=== PATIENT | female | born 1960 | race Caucasian/White ===

== ENCOUNTER → 2016-11-01 | Outpatient (CLI) | payer OTHER, MEDICARE ==
[~2016-11-01] MED LIST: AMPH30CA3 PO; ARIP2TAB3 PO; ATV5X PO; BIOT1CAP3; BIOT1CAP3 PO; BREX1TAB3 PO; CEVI30CA PO; CGN5X PO; CHOL20007 PO; CHOL20009 PO; CYAN100073 PO; DEXT1TAB15 PO; DSY/150 PO; DSY50 PO; EFFSR75 PO; EPP3/2 IM; GABA-112 PO; GABA-113 PO; GABA300C19 PO; GADAVIST IV PRN; IMT50 PO; KLN5X PO; LAMO1TAB21 PO; LTHCR300 PO; NIFE30TA83 PO; NIFE60TA57 PO; PALI117I IM; PALI3TAB PO; PANT40TA PO; PRAM1.5T PO; PRAZ1CAP10 PO; PRAZ2CAP3 PO; PRT/40 PO; SUMA100T16 PO; TRAM-10 PO; VENL75CA PO
--- NOTE | 2016-11-01 11:01 | DIAGNOSTIC IMAGING REPORT ---
CERVICAL SPINE MRI WITH AND WITHOUT CONTRAST HISTORY: Pain. Neuropathy. GAIT DISTURBANCE TECHNIQUE: Multiplanar multisequence MRI of the cervical spine was performed both before and after the use of intravenous contrast. COMPARISON STUDY: None. FINDINGS: Signal characteristics the vertebral bodies as well as intervertebral disc are unremarkable. C2-C3: No significant central canal or neural foraminal narrowing. C3-C4: No significant central canal or neural foraminal narrowing. C4-C5: No significant central canal or neural foraminal narrowing. C5-C6: No significant central canal or neural foraminal narrowing. C6-C7: No significant central canal or neural foraminal narrowing. C7-T1: No significant central canal or neural foraminal narrowing. IMPRESSION: Normal study. No change from the prior exam. Electronically signed by: Abner Wiseman M.D. 11/01/2016 11:00 AM Dictated Date/Time: 11/01/2016 10:48 AM
--- NOTE | 2016-11-01 11:14 | DIAGNOSTIC IMAGING REPORT ---
MRI OF THE BRAIN WITHOUT AND WITH IV CONTRAST CLINICAL HISTORY: GAIT DISTURBANCE HEADACHES, MIGRAINES, DIZZINESS, LIGHTHEADEDNESS. COMPARISON STUDY: 09/02/2014 TECHNIQUE: MRI of the brain was performed from the vertex to the skull base utilizing various T1 and T2 weighted sequences. Following the IV administration of 6 mL of Gadavist contrast, additional enhanced images were obtained. FINDINGS: Sagittal T1, axial diffusion, proton density and T2 weighted axial, coronal FLAIR, and pre and post axial T1-weighted images were acquired. These were supplemented with post gadolinium coronal T1 weighted images. The patient was imaged under 0.7 Jenny open MRI scanner. No intra or extra-axial mass lesions are visualized. Axial diffusion-weighted images reveal no evidence of acute or subacute infarction. There is no evidence of ventricular dilatation. Proton density T2-weighted and FLAIR images reveal stable foci of nonspecific increased T2 and FLAIR signal within the left frontal white matter. There are no abnormal flow voids. There is no evidence of pathologic enhancement. IMPRESSION: 1. No significant change from the prior August 2014 study 2. No evidence of intracranial mass 3. No evidence of acute or subacute infarction 4. Stable nonspecific foci of increased T2 and FLAIR signal within the left frontal matter Electronically signed by: Anthony Ramos M.D. 11/01/2016 11:13 AM Dictated Date/Time: 11/01/2016 11:08 AM
== END | disposition home or self-care (01) ==
LOC: C.OPENMRI 08:43
PROVIDERS: ATTEND Psychiatry & Neurology Neurology
DX: R26.9 Unspecified abnormalities of gait and mobility (principal); F33.2 Major depressive disorder, recurrent severe without psychotic features

== ENCOUNTER → 2016-11-01 | Outpatient (CLI) | payer OTHER, MEDICARE ==
[~2016-11-01] MED LIST changes: -GADAVIST IV PRN
[2016-11-01 12:38] LABS: ALT/SGPT 28 U/L (12-78); BLOOD UREA NITROGEN 17 mg/dl (7-18); BUN/CREATININE RATIO 26.2 (10-20); CALCIUM 9.4 mg/dl (8.5-10.1); CARBON DIOXIDE 32 mmol/L (21-32); CHLORIDE 99 mmol/L (98-107); CREATININE 0.63 mg/dl (0.60-1.20); GLUCOSE 96 mg/dl (70-99); POTASSIUM 3.7 mmol/L (3.5-5.1); SODIUM 136 mmol/L (136-145)
[2016-11-01 12:40] LABS: ALB/GLOB RATIO 0.9 (0.9-2); ALKALINE PHOSPHATASE 136 U/L (45-117); AST/SGOT 18 U/L (15-37)
== END | disposition home or self-care (01) ==
LOC: C.LAB 11:26
PROVIDERS: ATTEND Psychiatry & Neurology Psychiatry
DX: F33.2 Major depressive disorder, recurrent severe without psychotic features (principal)

== ENCOUNTER 2016-11-03 17:50 | Inpatient (IN) | payer OTHER, MEDICARE ==
[~2016-11-03] VITALS: Ht 165.1 cm; Wt 59.3 kg
[~2016-11-03 17:50] MED LIST changes: -AMPH30CA3 PO; -ARIP2TAB3 PO; -BIOT1CAP3; -BREX1TAB3 PO; -CGN5X PO; -CHOL20007 PO; -CYAN100073 PO; -DSY/150 PO; -GABA-112 PO; -GABA-113 PO; -KLN5X PO; -NIFE60TA57 PO; -PALI117I IM; -PALI3TAB PO; -PANT40TA PO; -PRAZ1CAP10 PO; -PRAZ2CAP3 PO; -SUMA100T16 PO; -VENL75CA PO
[2016-11-03 18:46] LABS: URINE APPEARANCE CLEAR (CLEAR); URINE BILIRUBIN NEG (NEG); URINE COLOR YELLOW; URINE NITRITE NEG (NEG); URINE PH 5.5 (4.5-7.5); URINE SPECIFIC GRAVITY 1.022 (1.000-1.030); UROBILINOGEN NEG (NEG); ZZUR CULT IF INDIC CLEAN CATCH NO
[2016-11-03 18:48] LABS: MANUAL MICROSCOPIC REQUIRED? NO; REVIEW REQ? NO
[2016-11-03] MEDS ORDERED: PRAZ1CAP10 PO (18:57)
[2016-11-03] MEDS ORDERED: AMPH30CA3 PO (18:57)
[2016-11-03] MEDS ORDERED: LORAZEPAM 1 MG TAB PO STA (19:11)
[2016-11-03] MEDS ORDERED: SUMATRIPTAN SUCCINATE 50 MG TAB PO STA (19:11)
[2016-11-03 19:20] LABS: BASO % 0.7 %; BASO ABS # 0.04 K/uL (0-0.2); COMPLETE YES; EOS % 1.7 %; HEMATOCRIT 41.5 % (37-47); IG% 0.2 %; LYMPH % 39.1 %; LYMPH ABS # 2.26 K/uL (1.2-3.4); MEAN CELL VOLUME 90.4 fL (80-100); MEAN CORPUSCULAR HEMOGLOBIN 30.9 pg (25-34); MEAN CORPUSCULAR HGB CONC 34.2 g/dl (32-36); MEAN PLATELET VOLUME 9.3 fL (7.4-10.4); MONO % 4.8 %; NEUT % 53.5 %; PLATELET COUNT 278 K/uL (130-400); RED BLOOD COUNT 4.59 M/uL (4.2-5.4); WHITE BLOOD COUNT 5.78 K/uL (4.8-10.8)
[2016-11-03 19:24] LABS: BENZODIAZEPINE, URINE NEG (NEG); COCAINE,URINE NEG (NEG); PHENCYCLIDINE, URINE NEG (NEG)
--- NOTE | 2016-11-03 19:38 | EMERGENCY ROOM VISIT NOTE ---
History Report prepared by Romario: Uma Mooney Under the Supervision of: Dr. North Ibarra M.D. 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 The patient states that she has been experiencing increased stress and anxiety in her life that has caused her to want to cut herself. She states that she cut her left forearm 2 days ago and after cutting she was able to function normally again. She adds that she attempted to cut the her right heel, but she kept herself from doing it. The patient states that she has not cut herself for several months prior to 2 days ago. The patient has been admitted to the hospital in the past for anxiety and she feels like she is experiencing the same symptoms as those previous times. She is on Ativan for her anxiety, but lately it has not been offering her any relief. The patient's medical case manager and psychiatrist both feel that she needs to come into the ED for further management. The patient is also experiencing a headache, which she typically takes Imitrex for, but did not take today because her medical case manager recommended to wait until after she is evaluated in the ED. Pt denies LOC, homicidal ideation, fevers, chills, diaphoresis, visual changes, neck pain, chest pain, breathing difficulties, abdominal pain, back pain, melena, hematochezia, urinary symptoms, numbness, weakness, lymphadenopathy, rash, or other complaints. Additionally, the patient is being tested for MS because she has been falling a lot and forgetting things. She had a MRI done two days ago. The patient also states that she is experiencing nausea and vomiting, but attributes that to a Botox injection in her stomach that did not work. The patient denies any recreational drug use or alcohol consumption. 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 A total of ten systems were reviewed and were otherwise negative. Past Medical & Surgical Medical Problems: (1) Bipolar disorder (2) Borderline depression (3) Cholecystectomy (4) Esophageal dysphagia (5) post traumatic stress disorder (6) Raynaud's phenomenon (7) Scleroderma (8) Sjogren's (9) Stomach Problems Family History Alcoholism (father) CAD (brother) Depression (father, mother) Hyperlipidemia (brother) Hypertension (mother) Social History Smoking Status: Never Smoker Alcohol Use: none Drug Use: none Marital Status: in relationship Housing Status: lives alone Occupation Status: employed Current/Historical Medications Scheduled Amphetamine-Dextroamphetamine 30MG (Adderall Xr 30MG), 30 MG PO QAM Biotin (Biotin), 5,000 MCG PO QAM Cevimeline Hcl (Evoxac), 30 MG PO TID Cholecalciferol (Vitamin D), 2,000 INTER.UNIT PO QAM Gabapentin (Neurontin), 300 MG PO HS Enemy Swim Carbonate (Enemy Swim Carbonate ER), 300 MG PO QAM Enemy Swim Carbonate (Enemy Swim Carbonate ER), 450 MG PO HS Pantoprazole (Pantoprazole Sodium), 40 MG PO BID Pramipexole Dihydrochloride (Mirapex), 1.5 MG PO QAM Prazosin Hcl (Prazosin), 1 MG PO HS Venlafaxine Hcl (Effexor Extended Rel), 75 MG PO QAM Scheduled PRN Nifedipine Ext Rel (Procardia Xl Ext Rel), 30 MG PO DAILY PRN for Breakthrough Pain Sumatriptan Succinate (Sumatriptan Succinate), 50 MG PO UD PRN for Migraine Trazodone HCl (Trazodone HCl), 50-100 MG PO HS PRN for Sleep Allergies Coded Allergies: BEE STING (Verified Allergy, Severe, pt. gets extreme swelling at the site and beyond,rash, 11/03/16) pt. allergic to yellow jackets,wasps, hornets Propranolol (Unverified Allergy, Intermediate, hives, 11/03/16) Doxycycline (Verified Adverse Reaction, Intermediate, vomiting, 11/03/16) Prednisone (Verified Adverse Reaction, Intermediate, MIGRAINE HEADACHE, 11/03/16) Physical Exam Vital Signs Date Time Temp Pulse Resp B/P Pulse Ox O2 Delivery O2 Flow Rate FiO2 11/03/16 19:42 81 20 162/102 99 11/03/16 17:57 36.8 101 18 141/95 96 Room Air Physical Exam GENERAL: Awake, alert, well appearing, no distress HENT: Normocephalic, atraumatic. TM's normal. Oropharynx unremarkable. EYES: PERRL. EOMI. Normal conjunctiva. Sclera non-icteric. NECK: Supple. No nuchal rigidity. FROM. No JVD or bruit. RESPIRATORY: CTA CARDIAC: RRR. No murmur. ABDOMEN: Soft, non distended. No tenderness to palpation. No rebound or guarding. No masses. MUSCULOSKELETAL: Healing lacerations to proximal left forearm without signs of infection. Scratch on the back of right heel. No edema. No discoloration. Gross motor strength symmetric. NEURO: Cranial nerves 2-12 grossly intact. Normal sensorium. No sensory or motor deficits noted. Speech normal. No pronator drift. SKIN: No rash or jaundice noted. LYMPH: No adenopathy. PSYCH: Anxious mood. Labile affect. Thoughts of self-harm by cutting. No homicidal ideation. Medical Decision & Procedures Laboratory Results 11/03/16 19:09 Red Blood Count 4.59, Mean Corpuscular Volume 90.4, Mean Corpuscular Hemoglobin 30.9, Mean Corpuscular Hemoglobin Concent 34.2, Mean Platelet Volume 9.3, Neutrophils (%) (Auto) 53.5, Lymphocytes (%) (Auto) 39.1, Monocytes (%) (Auto) 4.8, Eosinophils (%) (Auto) 1.7, Basophils (%) (Auto) 0.7, Neutrophils # (Auto) 3.09, Lymphocytes # (Auto) 2.26, Monocytes # (Auto) 0.28, Eosinophils # (Auto) 0.10, Basophils # (Auto) 0.04 11/03/16 19:09 Test 11/03/16 18:25 11/03/16 19:09 Urine Color YELLOW Urine Appearance CLEAR (CLEAR) Urine pH 5.5 (4.5-7.5) Urine Specific Happy 1.022 (1.000-1.030) Urine Protein NEG (NEG) Urine Glucose (UA) NEG (NEG) Urine Ketones NEG (NEG) Urine Occult Blood NEG (NEG) Urine Nitrite NEG (NEG) Urine Bilirubin NEG (NEG) Urine Urobilinogen NEG (NEG) Urine Leukocyte Esterase NEG (NEG) Urine Opiates Screen NEG (NEG) Urine Methadone, Qualitative NEG (NEG) Urine Barbiturates NEG (NEG) Urine Phencyclidine (PCP) Level NEG (NEG) Ur Amphetamine/Methamphetamine POS (NEG) MDMA (Ecstasy) Screen NEG (NEG) Urine Benzodiazepines Screen NEG (NEG) Urine Cocaine Metabolite NEG (NEG) Urine Marijuana (THC) NEG (NEG) White Blood Count 5.78 K/uL (4.8-10.8) Red Blood Count 4.59 M/uL (4.2-5.4) Hemoglobin 14.2 g/dL (12.0-16.0) Hematocrit 41.5 % (37-47) Mean Corpuscular Volume 90.4 fL (80-100) Mean Corpuscular Hemoglobin 30.9 pg (25-34) Mean Corpuscular Hemoglobin Concent 34.2 g/dl (32-36) Platelet Count 278 K/uL (130-400) Mean Platelet Volume 9.3 fL (7.4-10.4) Neutrophils (%) (Auto) 53.5 % Lymphocytes (%) (Auto) 39.1 % Monocytes (%) (Auto) 4.8 % Eosinophils (%) (Auto) 1.7 % Basophils (%) (Auto) 0.7 % Neutrophils # (Auto) 3.09 K/uL (1.4-6.5) Lymphocytes # (Auto) 2.26 K/uL (1.2-3.4) Monocytes # (Auto) 0.28 K/uL (0.11-0.59) Eosinophils # (Auto) 0.10 K/uL (0-0.5) Basophils # (Auto) 0.04 K/uL (0-0.2) RDW Standard Deviation 41.5 fL (36.4-46.3) RDW Coefficient of Variation 12.6 % (11.5-14.5) Immature Granulocyte % (Auto) 0.2 % Immature Granulocyte # (Auto) 0.01 K/uL (0.00-0.02) Anion Gap 6.0 mmol/L (3-11) Est Creatinine Clear Calc Drug Dose 91.9 ml/min Estimated GFR () 117.9 Estimated GFR (Non- 101.7 BUN/Creatinine Ratio 31.4 (10-20) Calcium Level 9.6 mg/dl (8.5-10.1) Total Bilirubin 0.2 mg/dl (0.2-1) Aspartate Amino Transf (AST/SGOT) 22 U/L (15-37) Alanine Aminotransferase (ALT/SGPT) 26 U/L (12-78) Alkaline Phosphatase 141 U/L (45-117) Total Protein 7.8 gm/dl (6.4-8.2) Albumin 3.8 gm/dl (3.4-5.0) Globulin 4.0 gm/dl (2.5-4.0) Albumin/Globulin Ratio 1.0 (0.9-2) Thyroid Stimulating Hormone (TSH) 0.830 uIu/ml (0.300-4.500) Salicylates Level < 1.7 mg/dl (2.8-20) Acetaminophen Level 14 ug/ml (10-30) Ethyl Alcohol mg/dL < 3.0 mg/dl (0-3) Laboratory results reviewed by me Medications Administered Medications (Trade) Dose Ordered Sig/Horacio Route Start Time Stop Time Status Last Admin Dose Admin Sumatriptan Succinate (Imitrex Tab) 50 mg NOW STAT PO 11/03/16 19:11 11/03/16 19:12 DC 11/03/16 19:40 50 MG Lorazepam (Ativan Tab) 1 mg NOW STAT PO 11/03/16 19:11 11/03/16 19:12 DC 11/03/16 19:40 1 MG ED Course 1904: The patient was evaluated in room A6. A complete history and physical exam was performed. 1910: Ordered Ativan Tab 1 mg PO. Imitrex Tab 50 mg PO 1999: Upon reexamination, the patient was doing well. I discussed the test results and treatment plan with her. The patient is going to [address] [place] [address] for further management. Medical Decision Prior records/ancillary studies reviewed. Triage Nursing notes reviewed and agree them. The patient's history was concerning for possible psychiatric disturbance. Differential diagnosis: Etiologies such as mood disorder, infection, hypoglycemia, electrolyte abnormalities, cardiac sources, intracerebral event, toxicologic, neurologic, as well as others were entertained. Physical examination: The physical examination was performed as above and was completely benign. No emergent medical pathologies were noted. ER treatment provided: Oral Ativan given. The patient also requested her Imitrex. This was given. On reassessment the patient felt better. Diagnostic interpretation by me: The labs revealed an unremarkable CBC and chemistry panel. A TSH and LFTs are negative. Tylenol, salicylate, and alcohol levels negative. Imaging studies: Deferred Consultation: A consultation was placed with mental health. The patient was evaluated by mental health in the emergency department and they felt admission was warranted. The patient was voluntarily admitted for further treatment. The chart was completed utilizing [employer] Speech voice recognition software. Grammatical errors, random word insertions, pronoun errors, and incomplete sentences are an occasional consequence of this system due to software limitations, ambient noise, and hardware issues. Any formal questions or concerns about the content, text, or information contained within the body of this dictation should be directly addressed to the physician for clarification. Impression Primary Impression: Mood disorder Scribe Attestation The scribe's documentation has been prepared under my direction and personally reviewed by me in its entirety. I confirm that the note above accurately reflects all work, treatment, procedures, and medical decision making performed by me. Departure Information Dispostion [facility] ([address] [place] [address]) Referrals Abner Burnett M.D. (PCP) Patient Instructions My [facility]
[2016-11-03 19:39] LABS: ACETAMINOPHEN 14 ug/ml (10-30); BUN/CREATININE RATIO 31.4 (10-20); CALCIUM 9.6 mg/dl (8.5-10.1); CREATININE 0.63 mg/dl (0.60-1.20)
[2016-11-03 19:50] LABS: THYROID STIMULATING HORMONE 0.83 uIu/ml (0.300-4.500)
[2016-11-03] MEDS ORDERED: NURSING VERBAL MED ORDER ONE ×2 (20:45→21:45)
[2016-11-03] MEDS ORDERED: SODIUM CHLORIDE 0.65% NA SOLN 45 ML (OCEAN) PRN (20:45)
[2016-11-03] MEDS ORDERED: BISMUTH SUBSALICYLATE PER ML OMNICELL CHARGE PO PRN (20:45)
[2016-11-03] MEDS ORDERED: MAGNESIUM HYDROXIDE SUSP 30 ML UDC PO PRN (20:45)
[2016-11-03] MEDS ORDERED: ACETAMINOPHEN 325 MG TAB PO PRN (20:45)
[2016-11-03] MEDS ORDERED: hydrOXYzine HCL 25 MG TAB PO PRN ×2 (20:45)
[2016-11-03] MEDS ORDERED: ALUMINUM/MAGNESIUM SUSP 30 ML UDC PO PRN (20:45)
[2016-11-03 21:22] VITALS: O2SAT 96
[2016-11-03 21:48] VITALS: BP 144/90; PULSE 77; TEMP 36.8; Ht 165.1 cm; Wt 59.3 kg
[2016-11-03] MEDS ORDERED: TRAZODONE HCL 50 MG TAB PO PRN (22:15)
[2016-11-04] MEDS: PANTOprazole SOD 40 MG TAB PO SCH ×3 (00:01→21:17)
[2016-11-04] MEDS: GABAPENTIN 300 MG CAP PO SCH ×2 (00:02→21:17)
[2016-11-04] MEDS: PRAZOSIN HCL 1 MG CAP PO SCH ×2 (00:02→21:17)
[2016-11-04] MEDS: LITHIUM CARBONATE 450 MG TABCR PO SCH ×2 (00:02→21:16)
[2016-11-04 07:00] VITALS: BP_SYST 103; BP_SYST 89; BP_DIAS 52; BP_DIAS 66; PULSE 70; PULSE 75; TEMP 36.4
[2016-11-04] MEDS ORDERED: NIFEdipine 30 MG CR TAB PO SCH (09:00)
[2016-11-04] MEDS: VENLAFAXINE HCL XR 75 MG CAPXR PO SCH (09:12)
[2016-11-04] MEDS: PRAMIPEXOLE DIHYDROCHLORIDE 0.5 MG TAB PO SCH (09:13)
[2016-11-04] MEDS ORDERED: CYAN100073 PO ×2 (12:43→13:23)
[2016-11-04] MEDS ORDERED: NIFE60TA57 PO ×2 (12:50→13:27)
[2016-11-04] MEDS ORDERED: SUMA100T16 PO (13:09)
[2016-11-04] MEDS ORDERED: SUMATRIPTAN SUCC TAB 100 MG TAB PO PRN (13:45)
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
[2016-11-04] MEDS ORDERED: CEVIMELINE HCL 30 MG PO SCH (14:00)
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
[2016-11-04] MEDS: PALIPERIDONE 3 MG TABCR PO SCH (21:16)
[2016-11-04] MEDS: CEVIMELINE 30 MG CAP PO SCH (21:16)
[2016-11-04] MEDS ORDERED: PRAZOSIN HCL 1 MG PO SCH (22:00)
[2016-11-05 06:30] VITALS: BP 129/84; PULSE 81; TEMP 36.5
[2016-11-05] MEDS ORDERED: NIFEdipine 30 MG CR TAB PO PRN (09:00)
[2016-11-05] MEDS ORDERED: PRAMIPEXOLE DIHYDROCHLORIDE 1.5 MG PO SCH (09:00)
[2016-11-05] MEDS ORDERED: NON-FORMULARY MEDICATION (Biotin 5,000 MCG) PO SCH (09:00)
[2016-11-05] MEDS: VENLAFAXINE HCL XR 75 MG CAPXR PO SCH (09:13)
[2016-11-05] MEDS: CEVIMELINE 30 MG CAP PO SCH ×3 (09:14→21:00)
[2016-11-05] MEDS: LITHIUM CARBONATE SR 300 MG TAB (LITHOBID) PO SCH (09:14)
[2016-11-05] MEDS: PRAMIPEXOLE DIHYDROCHLORIDE 0.5 MG TAB PO SCH (09:15)
[2016-11-05] MEDS: PANTOprazole SOD 40 MG TAB PO SCH ×2 (09:15→21:02)
[2016-11-05] MEDS: CYANOCOBALAMIN 500 MCG TAB (VIT B-12) PO SCH (09:16)
[2016-11-05] MEDS: CHOLECALCIFEROL 1000 INTER.UNIT TAB PO SCH (09:16)
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
[2016-11-05] MEDS: LITHIUM CARBONATE 450 MG TABCR PO SCH (21:00)
[2016-11-05] MEDS: PALIPERIDONE 3 MG TABCR PO SCH (21:01)
[2016-11-05] MEDS: PRAZOSIN HCL 1 MG CAP PO SCH (21:01)
[2016-11-05] MEDS: GABAPENTIN 300 MG CAP PO SCH (21:01)
[2016-11-06 06:51] VITALS: BP_SYST 112; BP_SYST 92; BP_DIAS 62; BP_DIAS 71; PULSE 82; PULSE 91; TEMP 36.7
--- NOTE | 2016-11-06 08:00 | Psychiatric Progress Notes ---
Progress Note Date of Service Nov 06, 2016. Interval History 56 yo woman well know to our unit, admitted voluntarily with severe depression and irritability, feeling unable to be safe at home. 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 Chief Complaint "Don't feel like doing anything". Subjective Patient was seen & assessed interval progress reviewed with nursing. Staff report she is refusing a meeting with her boyfriend, saying she feels "abandoned ," but wants nothing to do with him. She said she might sign a 72 hour notice, as she isn't sure who can watch her dog after Tuesday. She did not submit the notice, and with staff encouragement, did call and leave a message for her boyfriend. She has minimal group participation, isolating in bed. This morning , she is seen in her room, where she is still in bed, skipping breakfast. She reports poor sleep, which she attributes to her roommate's snoring. She states she doesn't want earplugs, "I only weigh those at the races." Mood is "it fluctuates," admits to ongoing depression and irritability. She admits she is not going to groups or interacting with others, stating "just don't feel like it." She denies suicidal thoughts, but endorses urges to cut which are "off and on," occur multiple times a day, primarily "when I'm frustrated." Irritability is better than on admission, which she attributes to being away from her stressors. She is various reasons why she can't do a meeting with her boyfriend Hoang, then says that he is coming in today, and she will do a meeting with him as possible. She denies side effects to medications. She is willing to start Invega Sustenna, and was informed she can get the first injection today, and the second in 4 days. She wants to know if there are other medication she can take in place of the Adderall, as she is worried that she will be able to concentrate. Sleep Information Total Hours of Sleep: 9.25 Meal Information Percent of Breakfast Consumed: 0 Percent of Lunch Consumed: 25 Percent of Dinner Consumed: 20 Mental Status Exam During interview pt is: alert and oriented, cooperative Appearance: appropriately dressed, disheveled Eye contact is: fair Motor behavior is: no abnormal motor movements Speech: normal in rate, rhythm & volume Affect: depressed, irritable, constricted Mood is: other ("not that good") Thought process: goal directed, concrete Thought content: reality based without delusions Suicidal thought are: denied (reports urges to cut, which occur multiple times a day) Homicidal thoughts are: denied Hallucinations: denies auditory, denies visual Cognition: memory grossly intact, attention grossly intact Intelligence estimated to be: average Insight: impaired Judgement: impaired Impression Adjusting to the unit, but remains angry and poorly engaged in treatment. We have initiated treatment plan to start a long acting injectable (HAYNES) due to chronic noncompliance with medication. At that point she would like to taper off of lithium. Recommend family meeting with Hoang, which she is willing to do this weekend, as he leaves Tuesday for his long distance [employer] job. Continue other meds. Spoke with Dr. Salgado by phone who reviewed MRI results. Nothing acute, lesion stable. May be a result of multiple factors including history of head injuries, lithium therapy and chronic migraines. This info was reviewed with the patient. Continued Inpatient Care The patient requires inpatient care due to the severity of her condition and inability to maintain her safety at home Plan (1) Major depressive disorder, recurrent severe without psychotic features 3/3 - Continue Invega 3 mg. HS with plan to move to HAYNES Sustenna in next few days - Continue other OP meds including lithium for now. Will taper lithium after demonstration that Invega/Sustenna tolerated - Q 15 min checks for safety - Encourage participation in group and individual counseling - Coordinate with OP providers 3/4 - Start Invega Sustenna, with 234 mg IM loading dose today, and second loading dose of 150 mg IM in 4 days. At that point, can discontinue oral paliperidone. (2) PTSD (post-traumatic stress disorder) 3/3 - Monitor and provide individual counseling - Continue prazosin 1 mg. HS (3) Borderline personality disorder 3/3 - Maintain consistent boundaries - Encourage healthy means of communicating her needs (4) Raynaud's phenomenon 3/3 - Continue home meds (5) Sjogren's 3/3 - Continue home meds (6) Scleroderma 3/3 - Monitor PO intake in view of esophageal dysmotility Discharge / Aftercare Planning Primary Care Physician: Name: Yoel Psychiatrist: Name: Dr Smith Therapist: Name: Beulah De Souza Business Excellence Leader: Name: bryon monzon Visit Code E&M Code: 12098 Risk Factors Assessment : Yes /single/: No Higher / Fall in social status: No Access to guns: No Health problems: Yes Mental Health Diagnoses: Yes Substance use disorders: No Previous psychiatric stay: Yes Hopelessness: No Smoker: No Protective Factors Assessment Restorationism beliefs: No : No Responsible for young children: No Employed: Yes Stable relationships: No Supportive family: Yes Good rapport with provider: Yes Data Vital Signs Last 24 Hrs: Date Time Temp Pulse Resp B/P Pulse Ox O2 Delivery O2 Flow Rate FiO2 11/06/16 06:51 36.7 82 16 112/71 91 92/62 Meds Administered Last 24 Hrs: Meds Administered (Past 24Hrs) Medications (Trade) Dose Ordered Sig/Horacio Route Start Time Stop Time Status Last Admin Dose Admin Gabapentin (Neurontin Cap) 300 mg HS PO 11/04/16 22:00 12/04/16 21:59 11/05/16 21:01 300 MG [place] Carbonate (Eskalith Cr Tab) 450 mg HS PO 11/04/16 22:00 12/04/16 21:59 11/05/16 21:00 450 MG Nifedipine (Procardia Xl Tab) 30 mg DAILY PO 11/04/16 09:00 11/04/16 13:39 DC 11/04/16 09:13 30 MG Pramipexole Dihydrochloride (miraPEX TAB) 1.5 mg QAM PO 11/04/16 09:00 12/04/16 08:59 11/05/16 09:15 1.5 MG Pantoprazole Sodium (Protonix Tab) 40 mg BID PO 11/04/16 09:00 12/04/16 08:59 11/05/16 21:02 40 MG Prazosin HCl (Prazosin) 1 mg HS PO 11/04/16 22:00 12/04/16 21:59 11/05/16 21:01 1 MG Venlafaxine HCl (effeXOR EXTENDED REL CAP) 75 mg QAM PO 11/04/16 09:00 12/04/16 08:59 11/05/16 09:13 75 MG [place] Carbonate (Lithobid Tab) 300 mg QAM PO 11/05/16 09:00 12/05/16 08:59 11/05/16 09:14 300 MG Cholecalciferol (Vitamin D Tab) 2,000 inter.unit QAM PO 11/05/16 09:00 12/05/16 08:59 11/05/16 09:16 2,000 INTER.UNIT Paliperidone (Invega) 3 mg HS PO 11/04/16 22:00 12/04/16 21:59 11/05/16 21:01 3 MG Cyanocobalamin (Vitamin B-12 Tab) 1,000 mcg QAM PO 11/05/16 09:00 12/05/16 08:59 11/05/16 09:16 1,000 MCG Cevimeline HCl (Evoxac) 30 mg TID PO 11/04/16 22:00 12/04/16 21:59 11/05/16 21:00 30 MG
[2016-11-06] MEDS: VENLAFAXINE HCL XR 75 MG CAPXR PO SCH (08:58)
[2016-11-06] MEDS: CEVIMELINE 30 MG CAP PO SCH ×3 (08:58→21:12)
[2016-11-06] MEDS: LITHIUM CARBONATE SR 300 MG TAB (LITHOBID) PO SCH (08:58)
[2016-11-06] MEDS: CYANOCOBALAMIN 500 MCG TAB (VIT B-12) PO SCH (08:59)
[2016-11-06] MEDS: CHOLECALCIFEROL 1000 INTER.UNIT TAB PO SCH (08:59)
[2016-11-06] MEDS: PANTOprazole SOD 40 MG TAB PO SCH ×2 (08:59→21:13)
[2016-11-06] MEDS: PRAMIPEXOLE DIHYDROCHLORIDE 0.5 MG TAB PO SCH (08:59)
[2016-11-06] MEDS ORDERED: INVEGA SUSTENNA 234 MG/ML 1.5 ML SYR IM ONE (13:30)
[2016-11-06] MEDS: GABAPENTIN 300 MG CAP PO SCH (21:12)
[2016-11-06] MEDS: PALIPERIDONE 3 MG TABCR PO SCH (21:13)
[2016-11-06] MEDS: PRAZOSIN HCL 1 MG CAP PO SCH (21:13)
[2016-11-06] MEDS: LITHIUM CARBONATE 450 MG TABCR PO SCH (21:24)
[2016-11-07 06:40] VITALS: BP_SYST 109; BP_SYST 95; BP_DIAS 64; BP_DIAS 72; PULSE 67; PULSE 74; TEMP 36.6
--- NOTE | 2016-11-07 07:53 | Psychiatric Progress Notes ---
Progress Note Date of Service Nov 07, 2016. Interval History 56 yo woman well know to our unit, admitted voluntarily with severe depression and irritability, feeling unable to be safe at home. 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 Chief Complaint "Okay, just tired". Subjective Patient was seen & assessed interval progress reviewed with nursing. Staff report she was incontinent of urine last night, and reported waking up with a nightmare. She slept in the quiet room as her roommate was snoring. Her boyfriend Hoang visited and they met with staff, and agreed that they both wanted to work on their relationship. He brought her dog in to visit her, and will take the dog to his mother's house when he leaves for work this week. She is eating poorly, 10-15% of meals. She went to one group but got upset and left as another patient was talking about coping skills to use in place of cutting. She continues to report low mood, rating it a 4, and says she feels "confused." Today, the patient was seen in her bed, to which she has returned after eating lunch. She states that she did get up and go to one group this morning. Her boyfriend Hoang visited yesterday, and they talked about "trying not to do thing that gun attack one another off," which she thinks was productive and helpful. She was pleased to learn that Hoang got a loan to replace their roof. Her mood is improved today, as she says "I'm not suicidal, but no energy, no desire to do anything, that's why I am just sleeping." She reports ongoing, constant urges to cut herself, but is dealing with it by "just sleeping," and denies that she has injured herself here. She wants to work on "impulse control," and also wants to have a meeting with her outpatient therapist, block and case maker, [facility] [employer] med management staff, and psych rehabilitation staff, saying her therapist Beulah recommended this. She tolerated the injection of systemic yesterday without difficulty, but wonders if it caused her to have urinary incontinence last night. Sleep Information Total Hours of Sleep: 7.15 Meal Information Percent of Breakfast Consumed: 10 Percent of Lunch Consumed: 25 Percent of Dinner Consumed: 15 Mental Status Exam During interview pt is: alert and oriented, cooperative Appearance: appropriately dressed, disheveled, other (in bed midday) Eye contact is: fair Motor behavior is: no abnormal motor movements Speech: normal in rate, rhythm & volume Affect: depressed, constricted (incongruent with stated mood) Mood is: other ("better") Thought process: goal directed, concrete Thought content: reality based without delusions Suicidal thought are: denied (reports urges to cut, which occur multiple times a day) Homicidal thoughts are: denied Hallucinations: denies auditory, denies visual Cognition: memory grossly intact, attention grossly intact Intelligence estimated to be: average Insight: impaired Judgement: impaired Impression Adjusting to the unit, but remains angry and poorly engaged in treatment. We have initiated treatment plan to start a long acting injectable (HAYNES) due to chronic noncompliance with medication. At that point she would like to taper off of lithium. Recommend family meeting with Hoang, which she is willing to do this weekend, as he leaves Tuesday for his long distance [employer] job. Continue other meds. Spoke with Dr. Salgado by phone who reviewed MRI results. Nothing acute, lesion stable. May be a result of multiple factors including history of head injuries, lithium therapy and chronic migraines. This info was reviewed with the patient. Continued Inpatient Care The patient requires inpatient care due to the severity of her condition and inability to maintain her safety at home Plan (1) Major depressive disorder, recurrent severe without psychotic features 3/3 - Continue Invega 3 mg. HS with plan to move to HAYNES Sustenna in next few days - Continue other OP meds including lithium for now. Will taper lithium after demonstration that Invega/Sustenna tolerated - Q 15 min checks for safety - Encourage participation in group and individual counseling - Coordinate with OP providers 3/4 - Start Invega Sustenna, with 234 mg IM loading dose today, and second loading dose of 150 mg IM in 4 days. At that point, can discontinue oral paliperidone. (2) PTSD (post-traumatic stress disorder) 3/3 - Monitor and provide individual counseling - Continue prazosin 1 mg. HS (3) Borderline personality disorder 3/3 - Maintain consistent boundaries - Encourage healthy means of communicating her needs (4) Raynaud's phenomenon 3/3 - Continue home meds (5) Sjogren's 3/3 - Continue home meds (6) Scleroderma 11/05 - Monitor PO intake in view of esophageal dysmotility Discharge / Aftercare Planning Primary Care Physician: Name: Yoel Psychiatrist: Name: Dr Smith Therapist: Name: Beulah De Souza Manager Event: Name: bryon monzon Visit Code E&M Code: 21208 Risk Factors Assessment : Yes /single/: No Higher / Fall in social status: No Access to guns: No Health problems: Yes Mental Health Diagnoses: Yes Substance use disorders: No Previous psychiatric stay: Yes Hopelessness: No Smoker: No Protective Factors Assessment Gnosticism beliefs: No : No Responsible for young children: No Employed: Yes Stable relationships: No Supportive family: Yes Good rapport with provider: Yes Data Vital Signs Last 24 Hrs: Date Time Temp Pulse Resp B/P Pulse Ox O2 Delivery O2 Flow Rate FiO2 11/07/16 06:40 36.6 67 16 109/72 74 95/64 Meds Administered Last 24 Hrs: Meds Administered (Past 24Hrs) Medications (Trade) Dose Ordered Sig/Horacio Route Start Time Stop Time Status Last Admin Dose Admin [place] Carbonate (Lithobid Tab) 300 mg QAM PO 11/05/16 09:00 12/05/16 08:59 11/06/16 08:58 300 MG Cholecalciferol (Vitamin D Tab) 2,000 inter.unit QAM PO 11/05/16 09:00 12/05/16 08:59 11/06/16 08:59 2,000 INTER.UNIT Cyanocobalamin (Vitamin B-12 Tab) 1,000 mcg QAM PO 11/05/16 09:00 12/05/16 08:59 11/06/16 08:59 1,000 MCG Paliperidone Palmitate (Invega Sustenna) 234 mg TODAY@1330 ONCE IM 11/06/16 13:30 11/06/16 13:31 DC 11/06/16 13:35 234 MG
[2016-11-07] MEDS: VENLAFAXINE HCL XR 75 MG CAPXR PO SCH (09:26)
[2016-11-07] MEDS: CHOLECALCIFEROL 1000 INTER.UNIT TAB PO SCH (09:27)
[2016-11-07] MEDS: CYANOCOBALAMIN 500 MCG TAB (VIT B-12) PO SCH (09:27)
[2016-11-07] MEDS: CEVIMELINE 30 MG CAP PO SCH ×3 (09:27→22:00)
[2016-11-07] MEDS: LITHIUM CARBONATE SR 300 MG TAB (LITHOBID) PO SCH (09:27)
[2016-11-07] MEDS: PRAMIPEXOLE DIHYDROCHLORIDE 0.5 MG TAB PO SCH (09:27)
[2016-11-07] MEDS: PANTOprazole SOD 40 MG TAB PO SCH ×2 (10:30→15:53)
[2016-11-08] MEDS: LITHIUM CARBONATE 450 MG TABCR PO SCH ×2 (00:02→20:56)
[2016-11-08] MEDS: PALIPERIDONE 3 MG TABCR PO SCH ×2 (00:03→20:57)
[2016-11-08] MEDS: GABAPENTIN 300 MG CAP PO SCH ×2 (00:03→20:56)
[2016-11-08] MEDS: PRAZOSIN HCL 1 MG CAP PO SCH ×2 (00:04→20:56)
[2016-11-08 06:46] VITALS: BP_SYST 103; BP_SYST 93; BP_DIAS 64; BP_DIAS 69; PULSE 61; PULSE 70; TEMP 36.5
[2016-11-08] MEDS: PANTOprazole SOD 40 MG TAB PO SCH ×2 (08:50→17:18)
[2016-11-08] MEDS: LITHIUM CARBONATE SR 300 MG TAB (LITHOBID) PO SCH (08:50)
[2016-11-08] MEDS: PRAMIPEXOLE DIHYDROCHLORIDE 0.5 MG TAB PO SCH (08:50)
[2016-11-08] MEDS: VENLAFAXINE HCL XR 75 MG CAPXR PO SCH (08:50)
[2016-11-08] MEDS: CYANOCOBALAMIN 500 MCG TAB (VIT B-12) PO SCH (08:51)
[2016-11-08] MEDS: CEVIMELINE 30 MG CAP PO SCH ×3 (08:51→20:56)
[2016-11-08] MEDS: CHOLECALCIFEROL 1000 INTER.UNIT TAB PO SCH (08:51)
--- NOTE | 2016-11-08 12:34 | Psychiatric Progress Notes ---
Progress Note Date of Service Nov 08, 2016. Interval History 56 yo woman well know to our unit, admitted voluntarily with severe depression and irritability, feeling unable to be safe at home. 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 Chief Complaint "All right, better than it was". Subjective Patient was seen & assessed interval progress reviewed with Treatment Team. She reports that mood is improved from admission, but she continues to feel she has "no energy." She says she slept "okay, but not real deep." She had asked the staff to wake her in the middle of the night, so that she would not have another episode of urinary incontinence She denies suicidal thoughts, but continues to have thoughts of cutting herself, although she denies acting on them. When asked about her symptoms, she started talking about her complaints about certain staff, whom she perceived as being "cranky and abrupt"with her, saying that when her boyfriend brought in some colored pencils for her, the staff put them in her locker instead of giving them to her directly. She says "I'm not used to experiencing this when I'm on this unit," and says it was distressing to the point that she was scratching her arms with her fingernails. Her goals for today are to go to her groups and call Hoang to see if he be willing to have a meeting with the social media developer over the phone. He has already left for the week, as he is a coil cutter, and she did not ask him this weekend if he would be willing to do a meeting by phone. Sleep Information Total Hours of Sleep: 6.00 Meal Information Percent of Breakfast Consumed: 100 Percent of Lunch Consumed: 25 Percent of Dinner Consumed: 25 Mental Status Exam During interview pt is: alert and oriented, cooperative Appearance: appropriately dressed Eye contact is: fair Motor behavior is: no abnormal motor movements Speech: normal in rate, rhythm & volume Affect: depressed, irritable, constricted (incongruent with stated mood) Mood is: other ("better") Thought process: goal directed, concrete Thought content: reality based without delusions Suicidal thought are: denied (reports thoughts to cut, which occur multiple times a day) Homicidal thoughts are: denied Hallucinations: denies auditory, denies visual Cognition: memory grossly intact, attention grossly intact Intelligence estimated to be: average Insight: impaired Judgement: impaired Impression Adjusting to the unit, but remains angry and poorly engaged in treatment. We have initiated treatment plan to start a long acting injectable (HAYNES) due to chronic noncompliance with medication. At that point she would like to taper off of lithium. Recommend family meeting with Hoang, which she is willing to do this weekend, as he leaves Tuesday for his long distance [employer] job. Continue other meds. Spoke with Dr. Salgado by phone who reviewed MRI results. Nothing acute, lesion stable. May be a result of multiple factors including history of head injuries, lithium therapy and chronic migraines. This info was reviewed with the patient. Continued Inpatient Care The patient requires inpatient care due to the severity of her condition and inability to maintain her safety at home Plan (1) Major depressive disorder, recurrent severe without psychotic features 3/3 - Continue Invega 3 mg. HS with plan to move to HAYNES Sustenna in next few days - Continue other OP meds including lithium for now. Will taper lithium after demonstration that Invega/Sustenna tolerated - Q 15 min checks for safety - Encourage participation in group and individual counseling - Coordinate with OP providers 3/4 - Start Invega Sustenna, with 234 mg IM loading dose today, and second loading dose of 150 mg IM in 4 days. At that point, can discontinue oral paliperidone. 3/5 - Family meeting with boyfriend. - Explore options for where she can get long-acting injectable after discharge. -Order fasting lipid profile and fasting glucose for monitoring on an atypical antipsychotic, as the last labs available were in 2014. (2) PTSD (post-traumatic stress disorder) 3/3 - Monitor and provide individual counseling - Continue prazosin 1 mg. HS (3) Borderline personality disorder 3/3 - Maintain consistent boundaries - Encourage healthy means of communicating her needs (4) Raynaud's phenomenon 3/3 - Continue home meds (5) Sjogren's 3/3 - Continue home meds (6) Scleroderma 3/3 - Monitor PO intake in view of esophageal dysmotility Discharge / Aftercare Planning Primary Care Physician: Name: Yoel Psychiatrist: Name: Dr Smith Therapist: Name: Beulah De Souza Boat Ride Operator: Name: bryon monzon Visit Code E&M Code: 38389 Risk Factors Assessment : Yes /single/: No Higher / Fall in social status: No Access to guns: No Health problems: Yes Mental Health Diagnoses: Yes Substance use disorders: No Previous psychiatric stay: Yes Hopelessness: No Smoker: No Protective Factors Assessment Catholic beliefs: No : No Responsible for young children: No Employed: Yes Stable relationships: No Supportive family: Yes Good rapport with provider: Yes Data Vital Signs Last 24 Hrs: Date Time Temp Pulse Resp B/P Pulse Ox O2 Delivery O2 Flow Rate FiO2 11/08/16 06:46 36.5 61 16 103/69 70 93/64 Meds Administered Last 24 Hrs: Meds Administered (Past 24Hrs) Medications (Trade) Dose Ordered Sig/Horacio Route Start Time Stop Time Status Last Admin Dose Admin Paliperidone Palmitate (Invega Sustenna) 234 mg TODAY@1330 ONCE IM 11/06/16 13:30 11/06/16 13:31 DC 11/06/16 13:35 234 MG Pantoprazole Sodium (Protonix Tab) 40 mg BID@0900,1600 PO 11/07/16 10:00 12/07/16 09:59 11/08/16 08:50 40 MG
[2016-11-09 06:58] VITALS: BP_SYST 100; BP_SYST 83; BP_DIAS 54; BP_DIAS 67; PULSE 76; PULSE 80; TEMP 36.9
[2016-11-09 08:35] LABS: CHOLESTEROL/HDL RATIO 3.1
[2016-11-09] MEDS ORDERED: INVEGA SUSTENNA 156 MG/ML 1 ML SYR IM SCH (09:00)
[2016-11-09] MEDS: CEVIMELINE 30 MG CAP PO SCH (09:24)
[2016-11-09] MEDS: VENLAFAXINE HCL XR 75 MG CAPXR PO SCH (09:24)
[2016-11-09] MEDS: PRAMIPEXOLE DIHYDROCHLORIDE 0.5 MG TAB PO SCH (09:25)
[2016-11-09] MEDS: PANTOprazole SOD 40 MG TAB PO SCH (09:25)
[2016-11-09] MEDS: CHOLECALCIFEROL 1000 INTER.UNIT TAB PO SCH (09:25)
[2016-11-09] MEDS ORDERED: PALI3TAB PO (09:25)
[2016-11-09] MEDS ORDERED: PALI117I IM (09:25)
[2016-11-09] MEDS: LITHIUM CARBONATE SR 300 MG TAB (LITHOBID) PO SCH (09:25)
[2016-11-09] MEDS: CYANOCOBALAMIN 500 MCG TAB (VIT B-12) PO SCH (09:25)
--- NOTE | 2016-11-09 09:41 | Discharge Instructions ---
Discharge Information Report Includes Report will include the: Discharge Instructions & Summary Admission Admission Date / Time: Nov 03, 2016 at 20:38 Reason for Admission: Bipolar Discharge Discharge Diagnosis / Problem: Major depressive disorder Condition at Discharge: Fair Discharge Goals Goal(s): Decrease discomfort, Improve disease control, Prevent Disease Progression Activity Recommendations Activity Limitations: resume your previous activity . Instructions / Follow-Up Instructions / Follow-Up . SPECIAL CARE INSTRUCTIONS: 1. Follow through with your scheduled aftercare appointments. If unable to keep an appointment, please call to reschedule. 2. Take your medication only as prescribed. Medication should not be changed or stopped without the approval of your doctor. In the event of worsening symptoms or concerns about side effects, contact your doctor immediately. 3. Utilize new healthy coping skills, anger management skills, and stress management skills learned during your hospitalization. Journal feelings and process them with a support person. Identify stressors or situations that may result in relapse, deterioration or inappropriate behaviors and develop a plan to deal with those issues. 4. If your coping skills are ineffective and you are in crisis, contact your outpatient providers for direction. If unable to reach your providers, please call the CAN HELP LINE AT or go to the closest Emergency Room. 5. Avoid alcohol and un-prescribed drugs. 6. You have been provided with the Mental Health Advance Directives Pamphlet for your review. AFTERCARE APPOINTMENTS: * Please call your insurance company prior to your scheduled appointment to confirm your aftercare providers are covered. Take your insurance information to your appointments. . Discharge / Aftercare Planning Primary Care Physician: Name: [facility] - Dr Burnett Phone Number: [phone] Appointment Notes: as needed Psychiatrist: Name: Dr Smith Phone Number: Date of Appointment: Dec 01, 2016 Time of Appointment: 1:00 Therapist: Name Of Therapist: Beulah De Souza Phone Number: [phone] Date of Appointment: Nov 09, 2016 Time of Appointment: 12:00 Program Dir: Name: June Penaloza [facility] Phone Number: [phone] Appointment Notes: per weekly schedule Home Health Services: Home Health Services: none Other: Name of Appointment #1: [facility] Phone Number: [phone] Date of Appointment #1: Nov 09, 2016 Time of Appointment #1: 2:30 Name of Appointment #2: Jaylan Kelly Phone Number: [phone] Date of Appointment #2: Dec 07, 2016 Time of Appointment #2: 10:00 Appointment #2 Notes: [address] (across from [facility] . Follow-Up Care Plan for Follow-Up Care: The patient will return to her OP providers, Dr. Smith and Beulah De Souza Current Hospital Diet Patient's current hospital diet: Regular Diet Discharge Diet Recommended Diet: Regular Diet Procedures Procedures Performed: No Pending Studies Pending Studies at Discharge: No Medical Emergencies . Who to Call and When: Medical Emergencies: For questions or emergencies related to your hospital stay, please contact the Inpatient Behavioral Health Unit at [phone]. A sdet is on-call 28/03 for the Behavioral Health Unit for emergencies At any time you feel your situation is an emergency, you may also call 911 immediately. . Non-Emergent Contact Non-Emergency issues call your: Psychiatrist, Therapist Advance Directives Existing Advance Directive: Yes Do You Have an Existing Mental: Yes Existing Living Will: Yes Existing Power of Engineering Technology Instructor: No The Person Making Decisions: Hoang Avila Advance Directives Info Given: To Pt/S.O. Discharge Summary Admission HPI Per the Admitting provider: Please see attached H&P Hospital Course (1) Major depressive disorder, recurrent severe without psychotic features 3/3 - Continue Invega 3 mg. HS with plan to move to HAYNES Sustenna in next few days - Continue other OP meds including lithium for now. Will taper lithium after demonstration that Invega/Sustenna tolerated - Q 15 min checks for safety - Encourage participation in group and individual counseling - Coordinate with OP providers 3/4 - Start Invega Sustenna, with 234 mg IM loading dose today, and second loading dose of 150 mg IM in 4 days. At that point, can discontinue oral paliperidone. 5 - Family meeting with boyfriend. - Explore options for where she can get long-acting injectable after discharge. -Order fasting lipid profile and fasting glucose for monitoring on an atypical antipsychotic, as the last labs available were in 2014. (2) PTSD (post-traumatic stress disorder) 3/3 - Monitor and provide individual counseling - Continue prazosin 1 mg. HS (3) Borderline personality disorder 3/3 - Maintain consistent boundaries - Encourage healthy means of communicating her needs (4) Raynaud's phenomenon 3/3 - Continue home meds (5) Sjogren's 3/3 - Continue home meds (6) Scleroderma 3/3 - Monitor PO intake in view of esophageal dysmotility Risk Factors Assessment : Yes /single/: No Higher / Fall in social status: No Access to guns: No Health problems: Yes Mental Health Diagnoses: Yes Substance use disorders: No Previous psychiatric stay: Yes Hopelessness: No Smoker: No Protective Factors Assessment Taoist beliefs: No : No Responsible for young children: No Employed: Yes Stable relationships: No Supportive family: Yes Good rapport with provider: Yes Day of Discharge Assessment COURSE OF HOSPITALIZATION: During the patient's 6 day stay, multiple treatment options were considered. Ultimately the patient was started on Invega 3 mg at bedtime to establish tolerability and Invega Sustenna was initiated. She received her second shot of 117 mg today and will be due for her next shot on or about December 07. Our agenda had been to taper Invega PO off and potentially taper lithium as she has had trouble being compliant with this in the past. She was also taken off of Adderall in view of her persistent irritability. After several days, she became less irritable, noted and appreciated the change. She did meet with her boyfriend Hoang as well and they agreed to continue to work on their relationship and live together. All of her home medications for medical reasons were continued. There was no overt evidence of esophageal dysphasia as she was able to eat and drink without difficulties. DAY OF DISCHARGE ASSESSMENT: Today the patient feels that she is ready for discharge. She is tolerating Invega Sustenna and is pleased to be off of stimulants. She will return to her current outpatient providers. Today she is casually and appropriately dressed and groomed. Eye contact is good. Affect is restricted. Gait and station are within normal limits. Speech is of normal rate volume and tone. Thoughts are organized and goal directed, and without evidence of thought disorder. Recent and remote memory are intact per conversation. Intelligence is estimated to be average. Insight and judgment are improved over admission. Laboratory 11/03/16 19:09 Red Blood Count 4.59, Mean Corpuscular Volume 90.4, Mean Corpuscular Hemoglobin 30.9, Mean Corpuscular Hemoglobin Concent 34.2, Mean Platelet Volume 9.3, Neutrophils (%) (Auto) 53.5, Lymphocytes (%) (Auto) 39.1, Monocytes (%) (Auto) 4.8, Eosinophils (%) (Auto) 1.7, Basophils (%) (Auto) 0.7, Neutrophils # (Auto) 3.09, Lymphocytes # (Auto) 2.26, Monocytes # (Auto) 0.28, Eosinophils # (Auto) 0.10, Basophils # (Auto) 0.04 11/03/16 19:09 Test 11/03/16 18:25 11/03/16 19:09 11/04/16 12:09 11/09/16 07:05 Urine Color YELLOW Urine Appearance CLEAR (CLEAR) Urine pH 5.5 (4.5-7.5) Urine Specific [place] 1.022 (1.000-1.030) Urine Protein NEG (NEG) Urine Glucose (UA) NEG (NEG) Urine Ketones NEG (NEG) Urine Occult Blood NEG (NEG) Urine Nitrite NEG (NEG) Urine Bilirubin NEG (NEG) Urine Urobilinogen NEG (NEG) Urine Leukocyte Esterase NEG (NEG) Urine Opiates Screen NEG (NEG) Urine Methadone, Qualitative NEG (NEG) Urine Barbiturates NEG (NEG) Urine Phencyclidine (PCP) Level NEG (NEG) Ur Amphetamine/Methamphetamine POS (NEG) MDMA (Ecstasy) Screen NEG (NEG) Urine Benzodiazepines Screen NEG (NEG) Urine Cocaine Metabolite NEG (NEG) Urine Marijuana (THC) NEG (NEG) White Blood Count 5.78 K/uL (4.8-10.8) Red Blood Count 4.59 M/uL (4.2-5.4) Hemoglobin 14.2 g/dL (12.0-16.0) Hematocrit 41.5 % (37-47) Mean Corpuscular Volume 90.4 fL (80-100) Mean Corpuscular Hemoglobin 30.9 pg (25-34) Mean Corpuscular Hemoglobin Concent 34.2 g/dl (32-36) Platelet Count 278 K/uL (130-400) Mean Platelet Volume 9.3 fL (7.4-10.4) Neutrophils (%) (Auto) 53.5 % Lymphocytes (%) (Auto) 39.1 % Monocytes (%) (Auto) 4.8 % Eosinophils (%) (Auto) 1.7 % Basophils (%) (Auto) 0.7 % Neutrophils # (Auto) 3.09 K/uL (1.4-6.5) Lymphocytes # (Auto) 2.26 K/uL (1.2-3.4) Monocytes # (Auto) 0.28 K/uL (0.11-0.59) Eosinophils # (Auto) 0.10 K/uL (0-0.5) Basophils # (Auto) 0.04 K/uL (0-0.2) RDW Standard Deviation 41.5 fL (36.4-46.3) RDW Coefficient of Variation 12.6 % (11.5-14.5) Immature Granulocyte % (Auto) 0.2 % Immature Granulocyte # (Auto) 0.01 K/uL (0.00-0.02) Anion Gap 6.0 mmol/L (3-11) Est Creatinine Clear Calc Drug Dose 91.9 ml/min Estimated GFR () 117.9 Estimated GFR (Non- 101.7 BUN/Creatinine Ratio 31.4 (10-20) Calcium Level 9.6 mg/dl (8.5-10.1) Total Bilirubin 0.2 mg/dl (0.2-1) Aspartate Amino Transf (AST/SGOT) 22 U/L (15-37) Alanine Aminotransferase (ALT/SGPT) 26 U/L (12-78) Alkaline Phosphatase 141 U/L (45-117) Total Protein 7.8 gm/dl (6.4-8.2) Albumin 3.8 gm/dl (3.4-5.0) Globulin 4.0 gm/dl (2.5-4.0) Albumin/Globulin Ratio 1.0 (0.9-2) Thyroid Stimulating Hormone (TSH) 0.830 uIu/ml (0.300-4.500) Salicylates Level < 1.7 mg/dl (2.8-20) Acetaminophen Level 14 ug/ml (10-30) Ethyl Alcohol mg/dL < 3.0 mg/dl (0-3) [place] Level 0.6 mMOL/L (0.6-1.2) Fasting Glucose 89 mg/dl (70-99) Triglycerides Level 126 mg/dl (0-150) Cholesterol Level 151 mg/dl (0-200) HDL Cholesterol 49 mg/dl LDL Cholesterol, Calculated 77 mg/dl VLDL Cholesterol, Calculated 25 mg/dl Cholesterol/HDL Ratio 3.1 Tobacco Cessation at Discharge FDA approved Prescription: non-smoker
[2016-11-10] MEDS ORDERED: INVEGA SUSTENNA 156 MG/ML 1 ML SYR IM ONE (09:00)
[2016-11-10 15:33] LABS: SYNTHETIC CANNABINOIDS QL URIN NEGATIVE (Negative)
[2016-12-07] MEDS ORDERED: INVEGA SUSTENNA 117 MG/ML 0.75 ML SYR IM SCH (09:00)
[2016-12-08] MEDS ORDERED: INVEGA SUSTENNA 117 MG/ML 0.75 ML SYR IM SCH (09:00)
== END 2016-11-09 10:35 | disposition home or self-care (01) | DRG 885 ==
LOC: C.EDB 17:52 → C.MHU 20:38
PROVIDERS: ADMIT Psychiatry & Neurology Psychiatry; ATTEND Psychiatry & Neurology Psychiatry
DX: F33.2 Major depressive disorder, recurrent severe without psychotic features (principal); F60.3 Borderline personality disorder; F43.10 Post-traumatic stress disorder, unspecified; G25.81 Restless legs syndrome; G43.909 Migraine, unspecified, not intractable, without status migrainosus; I73.00 Raynaud's syndrome without gangrene; K21.9 Gastro-esophageal reflux disease without esophagitis; J45.909 Unspecified asthma, uncomplicated; K22.4 Dyskinesia of esophagus; M34.9 Systemic sclerosis, unspecified; M35.00 Sjogren syndrome, unspecified; Z87.820 Personal history of traumatic brain injury; Z79.899 Other long term (current) drug therapy

== ENCOUNTER 2016-11-25 12:41 | Emergency (ER) | payer OTHER, MEDICARE ==
[~2016-11-25] VITALS: Ht 165.1 cm; Wt 61.4 kg
[~2016-11-25 12:41] MED LIST changes: -ATV5X PO; +CYAN100073 PO; -DEXT1TAB15 PO; -EPP3/2 IM; -IMT50 PO; -LAMO1TAB21 PO; -NIFE30TA83 PO; +NIFE60TA57 PO; +PALI117I IM; +PALI3TAB PO; +PRAZ1CAP10 PO; +SUMA100T16 PO; -TRAM-10 PO
[2016-11-25 12:52] VITALS: Ht 165.1 cm; Wt 61.4 kg
[2016-11-25 13:59] LABS: BASO % 0.7 %; BASO ABS # 0.04 K/uL (0-0.2); COMPLETE YES; EOS % 3.5 %; HEMATOCRIT 41.7 % (37-47); LYMPH % 33.9 %; LYMPH ABS # 1.82 K/uL (1.2-3.4); MEAN CELL VOLUME 92.7 fL (80-100); MEAN CORPUSCULAR HEMOGLOBIN 30.7 pg (25-34); MEAN CORPUSCULAR HGB CONC 33.1 g/dl (32-36); MONO % 6.7 %; NEUT % 55.2 %; PLATELET COUNT 249 K/uL (130-400); WHITE BLOOD COUNT 5.37 K/uL (4.8-10.8)
[2016-11-25 14:01] LABS: URINE APPEARANCE CLOUDY (CLEAR); URINE BILIRUBIN NEG (NEG); URINE COLOR YELLOW; URINE EPITHELIAL CELL AUTO >30 /lpf (0-5); URINE NITRITE NEG (NEG); URINE SPECIFIC GRAVITY 1.019 (1.000-1.030); UROBILINOGEN NEG (NEG); ZZUR CULT IF INDIC CLEAN CATCH YES
[2016-11-25 14:04] LABS: MANUAL MICROSCOPIC REQUIRED? NO; REVIEW REQ? NO
[2016-11-25 14:16] LABS: BUN/CREATININE RATIO 22.9 (10-20); CALCIUM 8.8 mg/dl (8.5-10.1); CREATININE 0.72 mg/dl (0.60-1.20); POTASSIUM 3.9 mmol/L (3.5-5.1)
[2016-11-25 14:19] LABS: ACETAMINOPHEN < 2 ug/ml (10-30)
[2016-11-25 14:28] LABS: ALB/GLOB RATIO 0.9 (0.9-2); THYROID STIMULATING HORMONE 1.58 uIu/ml (0.300-4.500)
[2016-11-25 14:29] LABS: BENZODIAZEPINE, URINE NEG (NEG); COCAINE,URINE NEG (NEG); PHENCYCLIDINE, URINE NEG (NEG)
--- NOTE | 2016-11-25 14:30 | EMERGENCY ROOM VISIT NOTE ---
History Report prepared by Romario: Cici Prieto Under the Supervision of: Dr. Carmela Case M.D. First contact with patient: 13:52 Chief Complaint: MENTAL HEALTH EVALUATION Stated Complaint: DEPRESSION, SELF INJURY, MED COMPLICATIONS History of Present Illness The patient is a 56 year old female who presents to the Emergency Room for a mental health evaluation. The patient has a history of mental health disorders and was admitted to [address] [place] [address] 3 weeks ago. She notes that she was taken off of Lamictal and Invega while she was in the hospital and has been tapering off of [place]. She took her last dose of [place] yesterday. She had an appointment with her psychiatrist yesterday and may be going on back on Lamictal. The patient states that her therapist referred her to the ER today so that the patient can get put back on her medications. When she was put on Lamictal in the past, they titrated it to make sure that she could tolerate the medication. The patient states that she has a history of self-harm and the last time she self-harmed by burning and cutting was 2 days ago. At that time, she decided to put a safety plan in place and has been staying with her friend. She notes that her service dog is with her and her fiance is on his way home. This weekend, she has plans to go to [place] to visit her mother. Currently, the patient is not having thoughts of suicide or self-harm. She does admit to feeling very anxious. She denies alcohol or drug use recently. Source of History: patient Onset: THIRD MATE Position: other (psych) Quality: other (anxiety) Review of Systems See HPI for pertinent positives & negatives. A total of 10 systems reviewed and were otherwise negative. Past Medical & Surgical Medical Problems: (1) Bipolar disorder (2) Borderline depression (3) Borderline personality disorder (4) Cholecystectomy (5) Esophageal dysphagia (6) Major depressive disorder, recurrent severe without psychotic features (7) post traumatic stress disorder (8) PTSD (post-traumatic stress disorder) (9) Raynaud's phenomenon (10) Scleroderma (11) Sjogren's (12) Stomach Problems Family History Alcoholism (father) CAD (brother) Depression (father, mother) Hyperlipidemia (brother) Hypertension (mother) Social History Smoking Status: Never Smoker Alcohol Use: none Drug Use: none Marital Status: in relationship Housing Status: lives alone Occupation Status: employed Current/Historical Medications Scheduled Biotin (Biotin), 5,000 MCG PO QAM Cevimeline Hcl (Evoxac), 30 MG PO TID Cholecalciferol (Vitamin D), 2,000 INTER.UNIT PO QAM Gabapentin (Neurontin), 300 MG PO HS Nifedipine Ext Rel (Procardia Xl Ext Rel), 60 MG PO DAILY Paliperidone Palmitate (Invega Sustenna), 117 MG IM Q4WK Pantoprazole (Pantoprazole Sodium), 40 MG PO BID Pramipexole Dihydrochloride (Mirapex), 1.5 MG PO QAM Prazosin Hcl (Prazosin), 1 MG PO HS Venlafaxine Hcl (Effexor Extended Rel), 75 MG PO QAM Scheduled PRN Sumatriptan Succinate (Imitrex), 100 MG PO PRN PRN for Pain Trazodone HCl (Trazodone HCl), 100-200 MG PO HS PRN for Sleep Miscellaneous Medications Cyanocobalamin (B12), TAB PO Allergies Coded Allergies: BEE STING (Verified Allergy, Severe, pt. gets extreme swelling at the site and beyond,rash, 11/25/16) pt. allergic to yellow jackets,wasps, hornets Propranolol (Unverified Allergy, Intermediate, hives, 11/25/16) Doxycycline (Verified Adverse Reaction, Intermediate, vomiting, 11/25/16) Prednisone (Verified Adverse Reaction, Intermediate, MIGRAINE HEADACHE, ) Physical Exam Vital Signs Date Time Temp Pulse Resp B/P Pulse Ox O2 Delivery O2 Flow Rate FiO2 11/25/16 16:32 71 16 103/65 100 11/25/16 15:40 73 16 107/63 100 Room Air 11/25/16 12:52 77 18 131/78 99 Room Air Physical Exam Vital signs reviewed. General: Well-appearing 56 year old female, in no significant distress. HEENT: No scleral icterus, PERRLA, neck supple. Atraumatic. Cardiovascular: Regular rate and rhythm, no extra sounds. Pulmonary: Clear to auscultation bilaterally, normal work of breathing. Abdomen: Soft, nontender, nondistended, positive bowel sounds. Musculoskeletal: Atraumatic, no peripheral edema. Neurologic: Patient awake alert and oriented x 3, full strength in all 4 extremities. Cranial nerves 2 through 12 grossly intact. Skin: Warm, dry, no rash Psych: Negative suicidal ideation, negative homicidal ideation. Medical Decision & Procedures Laboratory Results 11/25/16 13:20 Red Blood Count 4.50, Mean Corpuscular Volume 92.7, Mean Corpuscular Hemoglobin 30.7, Mean Corpuscular Hemoglobin Concent 33.1, Mean Platelet Volume 10.0, Neutrophils (%) (Auto) 55.2, Lymphocytes (%) (Auto) 33.9, Monocytes (%) (Auto) 6.7, Eosinophils (%) (Auto) 3.5, Basophils (%) (Auto) 0.7, Neutrophils # (Auto) 2.96, Lymphocytes # (Auto) 1.82, Monocytes # (Auto) 0.36, Eosinophils # (Auto) 0.19, Basophils # (Auto) 0.04 11/25/16 13:20 Test 11/25/16 13:10 11/25/16 13:20 11/25/16 14:27 Urine Color YELLOW Urine Appearance CLOUDY (CLEAR) Urine pH 5.0 (4.5-7.5) Urine Specific [place] 1.019 (1.000-1.030) Urine Protein NEG (NEG) Urine Glucose (UA) NEG (NEG) Urine Ketones NEG (NEG) Urine Occult Blood NEG (NEG) Urine Nitrite NEG (NEG) Urine Bilirubin NEG (NEG) Urine Urobilinogen NEG (NEG) Urine Leukocyte Esterase MODERATE (NEG) Urine WBC (Auto) 10-30 /hpf (0-5) Urine RBC (Auto) 0-4 /hpf (0-4) Urine Hyaline Casts (Auto) 1-5 /lpf (0-5) Urine Epithelial Cells (Auto) >30 /lpf (0-5) Urine Bacteria (Auto) NEG (NEG) Urine Opiates Screen NEG (NEG) Urine Methadone, Qualitative NEG (NEG) Urine Barbiturates NEG (NEG) Urine Phencyclidine (PCP) Level NEG (NEG) Ur Amphetamine/Methamphetamine NEG (NEG) MDMA (Ecstasy) Screen POS (NEG) Urine Benzodiazepines Screen NEG (NEG) Urine Cocaine Metabolite NEG (NEG) Urine Marijuana (THC) NEG (NEG) White Blood Count 5.37 K/uL (4.8-10.8) Red Blood Count 4.50 M/uL (4.2-5.4) Hemoglobin 13.8 g/dL (12.0-16.0) Hematocrit 41.7 % (37-47) Mean Corpuscular Volume 92.7 fL (80-100) Mean Corpuscular Hemoglobin 30.7 pg (25-34) Mean Corpuscular Hemoglobin Concent 33.1 g/dl (32-36) Platelet Count 249 K/uL (130-400) Mean Platelet Volume 10.0 fL (7.4-10.4) Neutrophils (%) (Auto) 55.2 % Lymphocytes (%) (Auto) 33.9 % Monocytes (%) (Auto) 6.7 % Eosinophils (%) (Auto) 3.5 % Basophils (%) (Auto) 0.7 % Neutrophils # (Auto) 2.96 K/uL (1.4-6.5) Lymphocytes # (Auto) 1.82 K/uL (1.2-3.4) Monocytes # (Auto) 0.36 K/uL (0.11-0.59) Eosinophils # (Auto) 0.19 K/uL (0-0.5) Basophils # (Auto) 0.04 K/uL (0-0.2) RDW Standard Deviation 42.3 fL (36.4-46.3) RDW Coefficient of Variation 12.5 % (11.5-14.5) Immature Granulocyte % (Auto) 0.0 % Immature Granulocyte # (Auto) 0.00 K/uL (0.00-0.02) Anion Gap 6.0 mmol/L (3-11) Est Creatinine Clear Calc Drug Dose 80.4 ml/min Estimated GFR () 110.0 Estimated GFR (Non- 94.9 BUN/Creatinine Ratio 22.9 (10-20) Calcium Level 8.8 mg/dl (8.5-10.1) Total Bilirubin 0.2 mg/dl (0.2-1) Aspartate Amino Transf (AST/SGOT) 12 U/L (15-37) Alanine Aminotransferase (ALT/SGPT) 23 U/L (12-78) Alkaline Phosphatase 123 U/L (45-117) Total Protein 7.5 gm/dl (6.4-8.2) Albumin 3.6 gm/dl (3.4-5.0) Globulin 3.9 gm/dl (2.5-4.0) Albumin/Globulin Ratio 0.9 (0.9-2) Thyroid Stimulating Hormone (TSH) 1.580 uIu/ml (0.300-4.500) Salicylates Level < 1.7 mg/dl (2.8-20) Acetaminophen Level < 2 ug/ml (10-30) [place] Level 0.3 mMOL/L (0.6-1.2) Ethyl Alcohol mg/dL < 3.0 mg/dl (0-3) Urine Test NEG (NEG) Date/Time Source Procedure Growth Status 11/25/16 13:10 Urine , Clean Catch Urine Culture - Final MORE THAN THREE TYPES OF ORGANISMS [place]... Complete Laboratory results per my review. ED Course 1400: Past medical records reviewed. The patient was evaluated in room A7. A complete history and physical examination was performed. Medical Decision Differential diagnosis: Etiologies such as mood disorder, infection, hypoglycemia, electrolyte abnormalities, cardiac sources, intracerebral event, toxicologic, neurologic, as well as others were entertained. This patient was evaluated and appeared appeared to be in no significant distress. Patient was medically cleared. Case management evaluated the patient. Does not appear that she is suicidal or homicidal. There is no bed availability on 3 S. The patient does not wish to have an admission to any other facility. The patient's casework specialist have been able to plan for outpatient management. Patient will return to the ER for worsening of symptoms or any medical concerns. Impression Primary Impression: Self-harming behavior Additional Impression: Mood disorder Scribe Attestation The scribe's documentation has been prepared under my direction and personally reviewed by me in its entirety. I confirm that the note above accurately reflects all work, treatment, procedures, and medical decision making performed by me. Departure Information Dispostion Home / Self-Care Referrals Abner Burnett M.D. (PCP) Patient Instructions My [facility] Additional Instructions Diagnosis: Mood disorder, self-harm Please maintaining her safety contract as signed. Follow-up with your psychiatrist tomorrow as scheduled. Return to the emergency department for worsening of symptoms or any medical concerns. Problem Qualifiers
[2016-11-25 16:32] VITALS: BP 103/65; PULSE 71; O2SAT 100
[2016-12-03 00:38] LABS: SYNTHETIC CANNABINOIDS QL URIN NEGATIVE (Negative)
== END 2016-11-25 16:35 | disposition home or self-care (01) ==
LOC: C.EDB 12:42 → C.EDA 16:35
DX: Z91.5 Personal history of self-harm (principal); F31.9 Bipolar disorder, unspecified; F60.3 Borderline personality disorder; Z90.49 Acquired absence of other specified parts of digestive tract; F43.10 Post-traumatic stress disorder, unspecified; Z81.8 Family history of other mental and behavioral disorders; Z79.899 Other long term (current) drug therapy

== ENCOUNTER → 2016-11-26 | Outpatient (CLI) | payer OTHER, MEDICARE ==
[~2016-11-26] MED LIST changes: +ARIP2TAB3 PO; +BIOT1CAP3; +BREX1TAB3 PO; +CGN5X PO; +CHOL20007 PO; +DSY/150 PO; +GABA-112 PO; +GABA-113 PO; +KLN5X PO; -LTHCR300 PO; +OPTIRAY 320 IV PRN; -PALI3TAB PO; +PANT40TA PO; +PRAZ2CAP3 PO; +VENL75CA PO
--- NOTE | 2016-11-26 09:45 | DIAGNOSTIC IMAGING REPORT ---
CHEST CT WITH CONTRAST CT DOSE: HISTORY: EPIGASTRIC PAIN 11/25/16 1320 CREA 0.72 TECHNIQUE: Multiaxial CT images of the chest were performed following the intravenous administration of contrast. COMPARISON: None. FINDINGS: The central airways are patent. No pleural effusions. No pneumothorax. There is a 4 mm subpleural nodule within the right lower lobe on image 176. Otherwise, the lungs are clear. Cholecystectomy. There are few scattered small hypodense lesions within the liver. The largest in the right hepatic lobe measures 1.1 cm. These favor cysts. The spleen and adrenal glands are unremarkable. No mediastinal or hilar lymphadenopathy. The heart is normal in size. Normal esophagus. The central pulmonary arteries are patent. Normal caliber thoracic aorta. IMPRESSION: 1. A 4 mm indeterminate pulmonary nodule within the right lower lobe. Please refer to the chart below for recommended follow-up. 2. No acute process within the chest. 3. Additional findings as described above. Please refer to below summary of Fleischner criteria recommendations for follow-up of incidental CT nodules (Ijeoma Reed, Guidelines for management of small pulmonary nodules detected on CT scans: A statement from the Fleischner Society, Radiology 237: [phone].) Low Risk Patient: Minimal or no smoking or other known risk factors for malignancy <=4 mm: No follow-up needed. >4-6 mm: Initial follow-up CT at 12 months; if unchanged, no further follow-up. >6-8 mm: Initial follow-up CT at 6-12 months then at 18-24 months if no change. >8 mm: Follow-up CT at \R\3, 9, 24 months, or PET and/or biopsy. High Risk Patient: History of smoking or other known risk factors <=4 mm: Follow-up at 12 months; if unchanged, no further follow-up. >4-6 mm: Initial follow-up CT at 6-12 months then at 18-24 months if no change. >6-8 mm: Initial follow-up CT at 3-6 months then at 9-12 and 24 months if no change. >8 mm: Same as low risk patient. Note: Nodule size measured as average of length and width. Ground glass or partly solid nodules may require longer follow-up to exclude indolent adenocarcinoma. Electronically signed by: Lopez Hernandez M.D. 11/26/2016 9:43 AM Dictated Date/Time: 11/26/2016 9:33 AM
== END | disposition home or self-care (01) ==
LOC: C.CTS 08:27
PROVIDERS: ATTEND Internal Medicine Gastroenterology
DX: R10.32 Left lower quadrant pain (principal); R19.4 Change in bowel habit; R13.10 Dysphagia, unspecified; R11.2 Nausea with vomiting, unspecified; R10.13 Epigastric pain; K31.84 Gastroparesis; R91.8 Other nonspecific abnormal finding of lung field

== ENCOUNTER → 2016-12-29 | Outpatient (CLI) | payer OTHER, MEDICARE ==
[~2016-12-29] MED LIST changes: +BENZ0.5T2 PO; -CGN5X PO; +GABA-1218 PO; -GABA300C19 PO; -OPTIRAY 320 IV PRN; +PANT40TA2 PO; -PRT/40 PO
--- NOTE | 2016-12-29 12:35 | DIAGNOSTIC IMAGING REPORT ---
(BARIUM SWALLOW) ESOPHAGUS CLINICAL HISTORY: SYSTEMIC SCLEROSIS, ESOPHAGEAL DYSPHAGIA COMPARISON STUDY: None FLUOROSCOPY TIME: 1.6 minutes. 24 fluoroscopic spot images were acquired.. FINDINGS: The patient swallowed effervescent granules and barium. Rapid sequence images reveal penetration but no evidence of aspiration. No esophageal masses or ulcerations were visualized. The patient swallowed a one half inch barium tablet which freely passed into the stomach. Esophageal motility appeared unremarkable. IMPRESSION: 1. No esophageal masses or strictures identified 2. Minimal penetration without evidence of aspiration. Electronically signed by: Anthony Ramos M.D. 12/29/2016 12:32 PM Dictated Date/Time: 12/29/2016 12:31 PM
--- NOTE | 2016-12-29 16:26 | ECHOCARDIOGRAM REPORT ---
*NOTICE TO RECEIVING DEMOCRAT AGENCY This information is strictly Confidential and protected under [place] law. [place] law prohibits you from making any further disclosure of this information unless further disclosure is expressly permitted by the written consent of the person to whom it pertains or is authorized by law. A general authorization for the release of medical or other information is not sufficient for this purpose. Hospital accepts no responsibility if the information is made available to any other person, INCLUDING THE PATIENT. Interpretation Summary * Name: MAT SMART Study Date: 12/29/2016 12:50 PM BP: 103/65 mmHg * Patient Location: [facility] HR: 62 * : 1960 (M/d/yyyy) Gender: Female Height: 65 in * Age: 56 yrs Ethnicity: CA Weight: 128 lb * Ordering Physician: ANDREW GARCIA * Referring Physician: ANDREW GARCIA * Performed By: Diana Cantu RCS * * Reason For Study: SYSTEMIC SCLEROSIS / ESOPHAGEAL DYSPHAGIA / R/O PULMONARY HTN * BSA: 1.6 m2 * -- Conclusions -- * The left ventricle is normal in size. * Left ventricular systolic function is normal. * Ejection Fraction = 50-55%. * The right ventricular systolic function is normal. * The left atrial size is normal. * Right atrial size is normal. * There is no evidence of pulmonary hypertension. The PA systolic pressure is less than 36 mmHg. * No significant valvular pathology. Procedure Details * A complete two-dimensional transthoracic echocardiogram was performed (2D, M-mode, Doppler and color flow Doppler). Left Ventricle * The left ventricle is normal in size. * There is normal left ventricular wall thickness. * Ejection Fraction = 50-55%. * Left ventricular systolic function is normal. Right Ventricle * The right ventricle is normal size. * The right ventricular systolic function is normal. Atria * The left atrial size is normal. * Right atrial size is normal. * The interatrial septum is intact with no evidence for an atrial septal defect. Mitral Valve * The mitral valve anatomy is normal. * Significant mitral regurgitation is absent. Tricuspid Valve * The tricuspid valve anatomy is normal. * Significant tricuspid regurgitation is absent. Aortic Valve * Aortic valve sclerosis mild, without significant aortic valvular stenosis. * The aortic valve is tricuspid. The leaflet thickness if normal. There is no aortic stenosis, and no significant insufficiency. * Aortic stenosis is absent. * There is no significant aortic regurgitation. Pulmonic Valve * The pulmonic valve is not well visualized. * There is no significant pulmonary regurgitation. Great Vessels * The aortic root and proximal ascending aorta are normal sized. Pericardium/Pleural * There is no pericardial effusion. Great Vessels * There is no evidence of pulmonary hypertension. The PA systolic pressure is less than 36 mmHg. MMode 2D Measurements and Calculations IVSd 0.78 cm IVSs 1.2 cm LVIDd 4.0 cm LVIDs 2.8 cm LVPWd 0.93 cm LVPWs 1.0 cm IVS/LVPW 0.83 FS 30.5 % EDV(Teich) 70.1 ml ESV(Teich) 29.0 ml EF(Teich) 58.6 % EDV(cubed) 64.1 ml ESV(cubed) 21.5 ml EF(cubed) 66.5 % % IVS thick 52.5 % % LVPW thick 10.8 % LV mass(C)d 102.1 grams LV mass(C)dI 62.4 grams/m\S\2 LV mass(C)s 86.5 grams LV mass(C)sI 52.8 grams/m\S\2 SV(Teich) 41.1 ml SI(Teich) 25.1 ml/m\S\2 SV(cubed) 42.6 ml SI(cubed) 26.1 ml/m\S\2 Ao root diam 3.1 cm Ao root area 7.7 cm\S\2 ACS 1.2 cm LA dimension 2.1 cm LA/Ao 0.66 LVOT diam 1.7 cm LVOT area 2.3 cm\S\2 LVAd ap4 27.6 cm\S\2 LVLd ap4 7.3 cm EDV(MOD-sp4) 84.5 ml EDV(sp4-el) 88.2 ml LVAs ap4 16.9 cm\S\2 LVLs ap4 6.2 cm ESV(MOD-sp4) 38.6 ml ESV(sp4-el) 39.1 ml EF(MOD-sp4) 54.3 % EF(sp4-el) 55.7 % LVAd ap2 29.1 cm\S\2 LVLd ap2 7.6 cm EDV(MOD-sp2) 90.8 ml EDV(sp2-el) 94.0 ml LVAs ap2 18.3 cm\S\2 LVLs ap2 6.5 cm ESV(MOD-sp2) 42.8 ml ESV(sp2-el) 43.6 ml EF(MOD-sp2) 52.9 % EF(sp2-el) 53.6 % LVLd %diff 4.2 % EDV(MOD-bp) 90.2 ml LVLs %diff 4.6 % ESV(MOD-bp) 41.5 ml EF(MOD-bp) 54.0 % SV(MOD-sp4) 45.9 ml SI(MOD-sp4) 28.0 ml/m\S\2 SV(MOD-sp2) 48.1 ml SI(MOD-sp2) 29.4 ml/m\S\2 SV(MOD-bp) 48.7 ml SI(MOD-bp) 29.7 ml/m\S\2 SV(sp4-el) 49.2 ml SI(sp4-el) 30.1 ml/m\S\2 SV(sp2-el) 50.3 ml SI(sp2-el) 30.8 ml/m\S\2 Doppler Measurements and Calculations MV E max rk 97.6 cm/sec MV A max rk 59.9 cm/sec MV E/A 1.6 MV P1/2t max rk 88.2 cm/sec MV P1/2t 123.1 msec MVA(P1/2t) 1.8 cm\S\2 MV dec slope 209.8 cm/sec\S\2 MV dec time 0.23 sec Ao V2 max 147.7 cm/sec Ao max PG 8.7 mmHg Ao max PG (full) 5.9 mmHg DION(V,A) 1.3 cm\S\2 DION(V,D) 1.3 cm\S\2 LV V1 max PG 2.8 mmHg LV V1 max 83.6 cm/sec PA V2 max 90.6 cm/sec PA max PG 3.3 mmHg TR max rk 233.1 cm/sec
== END | disposition home or self-care (01) ==
LOC: C.RAD 11:56
PROVIDERS: ATTEND Specialist
DX: M34.9 Systemic sclerosis, unspecified (principal); R13.14 Dysphagia, pharyngoesophageal phase

== ENCOUNTER 2017-04-11 12:44 | Inpatient (IN) | payer OTHER, MEDICARE ==
[~2017-04-11] VITALS: Ht 165.1 cm; Wt 66.0 kg
[~2017-04-11 12:44] MED LIST changes: -ARIP2TAB3 PO; -BENZ0.5T2 PO; -BIOT1CAP3; -BREX1TAB3 PO; -CHOL20007 PO; -DSY/150 PO; -GABA-112 PO; -GABA-113 PO; -GABA-1218 PO; +GABA300C19 PO; -KLN5X PO; -PANT40TA PO; -PANT40TA2 PO; -PRAZ2CAP3 PO; +PRT/40 PO; -VENL75CA PO
[2017-04-11] MEDS ORDERED: VENL75CA PO (13:23)
[2017-04-11] MEDS ORDERED: CGN5X PO (13:23)
[2017-04-11] MEDS ORDERED: PRAM1.5T PO (13:23)
[2017-04-11] MEDS ORDERED: PANT40TA PO (13:23)
[2017-04-11] MEDS ORDERED: BREX1TAB3 PO (13:23)
[2017-04-11] MEDS ORDERED: KLN5X PO (13:23)
[2017-04-11] MEDS ORDERED: DSY/150 PO (13:23)
[2017-04-11] MEDS ORDERED: PRAZ2CAP3 PO (13:23)
--- NOTE | 2017-04-11 13:28 | EMERGENCY ROOM VISIT NOTE ---
History Report prepared by Romario: Manjinder Nevarez Under the Supervision of: Dr. Alan Hung M.D. First contact with patient: 13:01 Chief Complaint: PSYCHIATRIC PROBLEMS Stated Complaint: DEPRESSION, SELF HARM History of Present Illness The patient is a 56 year old female with a history of depression and self-harm who presents to the Emergency Room with complaints of worsening depression that started last week. Per the psychiatric case loader operator, the patient has been here before and has been admitted before for her psychiatric issues. The patient states that she has started cutting herself, and does not care if she kills herself while she is cutting. She is voluntary and wants to seek help. The patient states that she talked to her psychiatrist and therapist, as well as her case therapist, who all agree that the patient should come in to be treated. The patient notes that she sees "no sense in delaying the process any longer". She says that she cut her right leg last week, as well as both her arms this week. Source of History: patient, other (case loader operator) Onset: Last week Position: other (global - depression) Quality: other (is voluntary) Timing: worsening Note: Associated symptoms: Cutting her arms and legs. Review of Systems See HPI for pertinent positives & negatives. A total of 10 systems reviewed and were otherwise negative. Past Medical & Surgical Medical Problems: (1) Bipolar disorder (2) Borderline depression (3) Borderline personality disorder (4) Cholecystectomy (5) Esophageal dysphagia (6) Major depressive disorder, recurrent severe without psychotic features (7) post traumatic stress disorder (8) PTSD (post-traumatic stress disorder) (9) Raynaud's phenomenon (10) Scleroderma (11) Sjogren's (12) Stomach Problems Family History Alcoholism (father) CAD (brother) Depression (father, mother) Hyperlipidemia (brother) Hypertension (mother) Social History Smoking Status: Never Smoker Alcohol Use: none Drug Use: none Marital Status: in relationship Housing Status: lives alone Occupation Status: employed Current/Historical Medications Scheduled Benztropine Mesylate (Benztropine Mesylate), 1 MG PO TID Brexpiprazole (Rexulti), 1 MG PO QAM Clonazepam (Clonazepam), 0.5 MG PO TID Pantoprazole (Protonix), 40 MG PO BID Pramipexole Dihydrochloride (Mirapex), 1.5 MG PO DAILY Prazosin Hcl (Prazosin), 2 MG PO DAILY Trazodone HCl (Trazodone HCl), 0.6 TAB PO HS Venlafaxine Hcl (Effexor Xr), 75 MG PO QAM Allergies Coded Allergies: BEE STING (Verified Allergy, Severe, pt. gets extreme swelling at the site and beyond,rash, 11/25/16) pt. allergic to yellow jackets,wasps, hornets Propranolol (Unverified Allergy, Intermediate, hives, 11/25/16) Doxycycline (Verified Adverse Reaction, Intermediate, vomiting, 11/25/16) Prednisone (Verified Adverse Reaction, Intermediate, MIGRAINE HEADACHE, ) Physical Exam Vital Signs Date Time Temp Pulse Resp B/P (MAP) Pulse Ox O2 Delivery O2 Flow Rate FiO2 04/11/17 15:58 75 18 126/71 96 Room Air 04/11/17 14:48 70 16 122/64 100 Room Air 04/11/17 12:47 36.3 76 20 130/80 99 Room Air Physical Exam GENERAL: Patient is a healthy-appearing well-nourished 56 year old female. Appears agitated rocking back and forth. HEAD: Normocephalic atraumatic EYES: Ocular movements intact pupils equal and react to light OROPHARYNX mucous membranes are moist no exudates present no erythema or edema present NECK: Supple no nuchal rigidity CHEST: Good equal expansion LUNGS: Clear and equal to auscultation CARDIAC: Normal S1 and S2 ABDOMEN: Soft nontender no guarding BACK: No CVA tenderness EXTREMITIES: Has superficial scratches bilaterally to arms. No pain upon palpation normal muscle strength in all groups. NEURO: Patient is following commands and answering questions appropriately. Alert and oriented x3 Cranial Nerves 2-12 grossly intact Medical Decision & Procedures Laboratory Results 04/11/17 13:37 Red Blood Count 4.26, Mean Corpuscular Volume 92.7, Mean Corpuscular Hemoglobin 31.0, Mean Corpuscular Hemoglobin Concent 33.4, Mean Platelet Volume 9.7, Neutrophils (%) (Auto) 48.9, Lymphocytes (%) (Auto) 40.3, Monocytes (%) (Auto) 8.8, Eosinophils (%) (Auto) 0.9, Basophils (%) (Auto) 0.9, Neutrophils # (Auto) 2.28, Lymphocytes # (Auto) 1.88, Monocytes # (Auto) 0.41, Eosinophils # (Auto) 0.04, Basophils # (Auto) 0.04 04/11/17 13:37 Test 04/11/17 13:01 04/11/17 13:37 04/11/17 13:44 Urine Color YELLOW Urine Appearance CLEAR (CLEAR) Urine pH 5.5 (4.5-7.5) Urine Specific Friend 1.021 (1.000-1.030) Urine Protein NEG (NEG) Urine Glucose (UA) NEG (NEG) Urine Ketones NEG (NEG) Urine Occult Blood NEG (NEG) Urine Nitrite NEG (NEG) Urine Bilirubin NEG (NEG) Urine Urobilinogen NEG (NEG) Urine Leukocyte Esterase NEG (NEG) Urine Opiates Screen NEG (NEG) Urine Methadone, Qualitative NEG (NEG) Urine Barbiturates NEG (NEG) Urine Phencyclidine (PCP) Level NEG (NEG) Ur Amphetamine/Methamphetamine NEG (NEG) MDMA (Ecstasy) Screen NEG (NEG) Urine Benzodiazepines Screen NEG (NEG) Urine Cocaine Metabolite NEG (NEG) Urine Marijuana (THC) NEG (NEG) White Blood Count 4.66 K/uL (4.8-10.8) Red Blood Count 4.26 M/uL (4.2-5.4) Hemoglobin 13.2 g/dL (12.0-16.0) Hematocrit 39.5 % (37-47) Mean Corpuscular Volume 92.7 fL (80-100) Mean Corpuscular Hemoglobin 31.0 pg (25-34) Mean Corpuscular Hemoglobin Concent 33.4 g/dl (32-36) Platelet Count 231 K/uL (130-400) Mean Platelet Volume 9.7 fL (7.4-10.4) Neutrophils (%) (Auto) 48.9 % Lymphocytes (%) (Auto) 40.3 % Monocytes (%) (Auto) 8.8 % Eosinophils (%) (Auto) 0.9 % Basophils (%) (Auto) 0.9 % Neutrophils # (Auto) 2.28 K/uL (1.4-6.5) Lymphocytes # (Auto) 1.88 K/uL (1.2-3.4) Monocytes # (Auto) 0.41 K/uL (0.11-0.59) Eosinophils # (Auto) 0.04 K/uL (0-0.5) Basophils # (Auto) 0.04 K/uL (0-0.2) RDW Standard Deviation 44.7 fL (36.4-46.3) RDW Coefficient of Variation 13.1 % (11.5-14.5) Immature Granulocyte % (Auto) 0.2 % Immature Granulocyte # (Auto) 0.01 K/uL (0.00-0.02) Anion Gap 6.0 mmol/L (3-11) Est Creatinine Clear Calc Drug Dose 75.2 ml/min Estimated GFR () 101.5 Estimated GFR (Non- 87.5 BUN/Creatinine Ratio 21.8 (10-20) Calcium Level 9.4 mg/dl (8.5-10.1) Total Bilirubin 0.2 mg/dl (0.2-1) Direct Bilirubin 0.1 mg/dl (0-0.2) Aspartate Amino Transf (AST/SGOT) 13 U/L (15-37) Alanine Aminotransferase (ALT/SGPT) 21 U/L (12-78) Alkaline Phosphatase 118 U/L (45-117) Total Protein 7.8 gm/dl (6.4-8.2) Albumin 3.6 gm/dl (3.4-5.0) Thyroid Stimulating Hormone (TSH) 0.972 uIu/ml (0.300-4.500) Ethyl Alcohol mg/dL < 3.0 mg/dl (0-3) Bedside Glucose 86 mg/dl (70-90) Labs reviewed by ED physician. Medications Administered Medications (Trade) Dose Ordered Sig/Horacio Route Start Time Stop Time Status Last Admin Dose Admin Acetaminophen (Tylenol Tab) 1,000 mg NOW STAT PO 04/11/17 15:30 04/11/17 15:31 DC 04/11/17 15:37 1,000 MG ED Course 1320: Past medical records reviewed. The patient was evaluated in room A8. A complete history and physical examination was performed. 1530: Ordered Tylenol Tab 1000 mg PO. 1600: I reevaluated the patient and she is resting. The patient verbally expressed understanding and agreement of the treatment plan. The patient will be taken to [address] [place] [address] for further treatment. Medical Decision Differential diagnosis: Etiologies such as mood disorder, infection, hypoglycemia, electrolyte abnormalities, cardiac sources, intracerebral event, toxicologic, neurologic, as well as others were entertained. Physical examination: The physical examination was performed as above and was completely benign. No emergent medical pathologies were noted. This is a 56-year-old female who presents emergency department for medical clearance so that she can be admitted to [facility]. the patient has no medical issues apparent. I did discuss the case with [facility]. who admitted the patient. Patient was in agreement with the treatment plan. Medication Reconcilliation Current Medication List: was personally reviewed by me Blood Pressure Screening Patient's blood pressure: Elevated blood pressure Blood pressure disposition: Elevated BP felt to be situational Impression Primary Impression: Mood disorder Scribe Attestation The scribe's documentation has been prepared under my direction and personally reviewed by me in its entirety. I confirm that the note above accurately reflects all work, treatment, procedures, and medical decision making performed by me. Departure Information Dispostion Mental Health Acute Care Referrals Abner Burnett M.D. (PCP) Patient Instructions My [facility]
[2017-04-11 13:41] LABS: URINE APPEARANCE CLEAR (CLEAR); URINE BILIRUBIN NEG (NEG); URINE COLOR YELLOW; URINE NITRITE NEG (NEG); URINE PH 5.5 (4.5-7.5); URINE SPECIFIC GRAVITY 1.021 (1.000-1.030); UROBILINOGEN NEG (NEG)
[2017-04-11 13:55] LABS: BENZODIAZEPINE, URINE NEG (NEG); COCAINE,URINE NEG (NEG); PHENCYCLIDINE, URINE NEG (NEG)
[2017-04-11 13:57] LABS: BASO % 0.9 %; BASO ABS # 0.04 K/uL (0-0.2); COMPLETE YES; EOS % 0.9 %; HEMATOCRIT 39.5 % (37-47); IG% 0.2 %; LYMPH % 40.3 %; LYMPH ABS # 1.88 K/uL (1.2-3.4); MEAN CELL VOLUME 92.7 fL (80-100); MEAN CORPUSCULAR HGB CONC 33.4 g/dl (32-36); MEAN PLATELET VOLUME 9.7 fL (7.4-10.4); MONO % 8.8 %; NEUT % 48.9 %; PLATELET COUNT 231 K/uL (130-400); RED BLOOD COUNT 4.26 M/uL (4.2-5.4); WHITE BLOOD COUNT 4.66 K/uL (4.8-10.8)
[2017-04-11 14:02] LABS: MANUAL MICROSCOPIC REQUIRED? NO; REVIEW REQ? NO
[2017-04-11 14:14] LABS: BUN/CREATININE RATIO 21.8 (10-20); CALCIUM 9.4 mg/dl (8.5-10.1); CREATININE 0.77 mg/dl (0.60-1.20); POTASSIUM 3.6 mmol/L (3.5-5.1)
[2017-04-11 14:25] LABS: THYROID STIMULATING HORMONE 0.972 uIu/ml (0.300-4.500)
[2017-04-11] MEDS ORDERED: ACETAMINOPHEN 500 MG TAB PO STA (15:30)
[2017-04-11] MEDS ORDERED: NON-FORMULARY MEDICATION SCH (15:45)
[2017-04-11] MEDS ORDERED: SODIUM CHLORIDE 0.65% NA SOLN 45 ML (OCEAN) PRN (15:45)
[2017-04-11] MEDS ORDERED: BISMUTH SUBSALICYLATE PER ML OMNICELL CHARGE PO PRN (15:45)
[2017-04-11] MEDS ORDERED: hydrOXYzine HCL 25 MG TAB PO PRN (15:45)
[2017-04-11] MEDS ORDERED: MAGNESIUM HYDROXIDE SUSP 30 ML UDC PO PRN (15:45)
[2017-04-11] MEDS ORDERED: ALUMINUM/MAGNESIUM SUSP 30 ML UDC PO PRN (15:45)
[2017-04-11 15:58] VITALS: O2SAT 96
[2017-04-11 16:34] VITALS: BP 122/68; PULSE 74; TEMP 36.6; Ht 165.1 cm; Wt 66.0 kg
[2017-04-11] MEDS: TRAZODONE HCL 100 MG TAB PO SCH (20:58)
[2017-04-11] MEDS: PANTOprazole SOD 40 MG TAB PO SCH (20:58)
[2017-04-11] MEDS: PRAZOSIN HCL 1 MG CAP PO SCH (20:59)
[2017-04-11] MEDS: CLONAZEPAM 0.5 MG TAB PO SCH (21:00)
[2017-04-11] MEDS: BENZTROPINE MESYLATE 1 MG TAB PO SCH (21:06)
[2017-04-12 07:04] VITALS: BP_SYST 102; BP_SYST 90; BP_DIAS 63; BP_DIAS 67; PULSE 57; PULSE 72; TEMP 36.6
[2017-04-12] MEDS: BENZTROPINE MESYLATE 1 MG TAB PO SCH ×2 (09:00→09:25)
[2017-04-12] MEDS: VENLAFAXINE HCL XR 75 MG CAPXR PO SCH (09:25)
[2017-04-12] MEDS: PRAMIPEXOLE DIHYDROCHLORIDE 0.5 MG TAB PO SCH (09:25)
[2017-04-12] MEDS: PANTOprazole SOD 40 MG TAB PO SCH ×2 (09:25→21:10)
[2017-04-12] MEDS: CLONAZEPAM 0.5 MG TAB PO SCH ×3 (09:25→21:10)
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
[2017-04-12] MEDS ORDERED: GABA-112 PO (10:16)
[2017-04-12] MEDS ORDERED: GABA-113 PO (10:17)
[2017-04-12] MEDS ORDERED: SUMA100T16 PO (10:18)
[2017-04-12] MEDS ORDERED: BIOT1CAP3 (10:19)
[2017-04-12] MEDS ORDERED: CEVI30CA PO (10:20)
[2017-04-12] MEDS ORDERED: CHOL20007 PO (10:21)
[2017-04-12] MEDS ORDERED: SUMATRIPTAN SUCC TAB 100 MG TAB PO PRN (10:45)
[2017-04-12] MEDS: CHOLECALCIFEROL 1000 INTER.UNIT TAB PO SCH (12:06)
[2017-04-12] MEDS: GABAPENTIN 100 MG CAP PO SCH (13:39)
[2017-04-12] MEDS: GABAPENTIN 300 MG CAP PO SCH (21:10)
[2017-04-12] MEDS: hydrOXYzine HCL 25 MG TAB PO PRN (21:10)
[2017-04-12] MEDS: PRAZOSIN HCL 1 MG CAP PO SCH (21:10)
[2017-04-12] MEDS: TRAZODONE HCL 100 MG TAB PO SCH (21:10)
[2017-04-12] MEDS: CEVIMELINE 30 MG CAP PO SCH (21:24)
[2017-04-13 06:59] VITALS: BP_SYST 104; BP_SYST 96; BP_DIAS 67; BP_DIAS 72; PULSE 64; PULSE 85; TEMP 36.4
[2017-04-13 08:49] LABS: CHOLESTEROL/HDL RATIO 3.4
[2017-04-13] MEDS ORDERED: BREXPIPRAZOLE 1.5 MG PO SCH (09:00)
[2017-04-13] MEDS ORDERED: BREXPIPRAZOLE 1 MG TAB PO SCH (09:00)
[2017-04-13] MEDS: CLONAZEPAM 0.5 MG TAB PO SCH ×3 (10:02→22:18)
[2017-04-13] MEDS: CEVIMELINE 30 MG CAP PO SCH ×3 (10:02→22:18)
[2017-04-13] MEDS: VENLAFAXINE HCL XR 75 MG CAPXR PO SCH (10:02)
[2017-04-13] MEDS: PANTOprazole SOD 40 MG TAB PO SCH ×2 (10:03→22:19)
[2017-04-13] MEDS: CHOLECALCIFEROL 1000 INTER.UNIT TAB PO SCH (10:03)
[2017-04-13] MEDS: GABAPENTIN 100 MG CAP PO SCH ×2 (10:03→13:32)
[2017-04-13] MEDS: PRAMIPEXOLE DIHYDROCHLORIDE 0.5 MG TAB PO SCH (10:03)
[2017-04-13] MEDS: BREXPIPRAZOLE 1 MG TAB PO SCH (10:03)
--- NOTE | 2017-04-13 12:36 | Psychiatric Progress Notes ---
Progress Note Date of Service Apr 13, 2017. Interval History 56-year-old female well known to our unit for depression, anxiety, PTSD, who presents again with an increase in self-injurious behaviors and passive wishes. She is unable to be managed on an outpatient basis at this time due to concerns for her safety. I have collaborated with Dr. Smith regarding her medications and we are in agreement that maximizing her trial of Rexulti should be our first priority. We will also encourage the patient to process her relationship with Hoang and what changes may be able to be made to make the relationship more satisfying in view of the fact that she says that she is going to stay with him. We're all recommending couples counseling but would need a therapist who is available on Saturdays. We will continue her other medications. Chief Complaint "Tired". Subjective Patient was seen & assessed interval progress reviewed with Treatment Team. The patient is tired, and awakened from sleep for the interview. She says that she took a prn vistaril last night, which helped to provide her a good night's sleep, but today has left her feeling hungover. She talked with her boyfriend Hoang only briefly last night to confirm that her dog made it to his parents without problems. She did not ask him about couples therapy, but has agreed to a family meeting to discuss their relationship and therapy. Today she is able to say that "It's not all Hoang" and accepts that she contributes to their poor communications as well. She rates her mood today 4/10 and still has passive SI saying "I don't see things changing". Staff report that Daksha has thoughts to self injure last evening but did not act on them. She was also noted to have distorted thinking with the example that she had 2 visitors but was focused on who didn't come rather than who did. She denies aud/vis hallucinations. Review of Systems Constitutional: + fatigue ENT: No hearing loss, No unusual epistaxis, No nasal symptoms, No sore throat, No tinnitus, No dental problems, No trouble swallowing, No problem reported Respiratory: No cough, No sputum, No wheezing, No shortness of breath, No dyspnea on exertion, No dyspnea at rest, No hemoptysis, No problem reported Cardiovascular: No chest pain, No orthopnea, No PND, No edema, No claudication , No palpitations, No problem reported Abdomen: No pain, No nausea, No vomiting, No diarrhea, No constipation, No GI bleeding, No problem reported Musculoskeletal: No joint pain, No muscle pain, No swelling, No calf pain, No problem reported Neurologic: No memory loss, No paralysis, No weakness, No numbness/tingling, No vertigo, No balance problems, No problem reported Psychiatric: + depression symptoms Integumentary: + problem reported (superficial healing cuts to forearms) Sleep Information Total Hours of Sleep: 8.50 Meal Information Percent of Breakfast Consumed: 25 Percent of Lunch Consumed: 30 Percent of Dinner Consumed: 40 Mental Status Exam During interview pt is: alert and oriented, cooperative Appearance: appropriately dressed, appropriately groomed Eye contact is: fair Motor behavior is: steady gait & station, other (tired and sluggish) Speech: normal in rate, rhythm & volume Affect: mood congruent, depressed, flat Mood is: depressed, anxious Thought process: goal directed Thought content: reality based without delusions Suicidal thought are: present Homicidal thoughts are: denied (passive) Hallucinations: denies auditory, denies visual Intelligence estimated to be: average Insight: impaired Judgement: impaired Impression Adjusting to being in the hospital. Is reactive to perceived slights like friends not visiting. Will need to set up a family meeting with Hoang, but he drives truck all week and may not be available in person until the weekend. Daksha would prefer an in person meeting saying that "Hoang give off a very different aura in person", but would be willing for a phone meeting if necessary. Rexult brought in from home, and tolerated 1.5 mg. today. Will consider increase to 2 mg. in the next day or two. FLP, FBS and Hep C screening reviewed with patient (WNL). Plan (1) Major depressive disorder, recurrent severe without psychotic features 04/11/17 -Increase Rexulti to 1.5 mg daily. Patient will need to bring in her own supply -Continue other medications including Effexor XR 75 mg, trazodone 100 mg at bedtime, Klonopin 0.5 mg 3 times a day, prazosin 2 mg at bedtime. -Every 15 minute checks for safety -Encourage participation in group and individual counseling -Family meeting -Recommend outpatient couples therapy -Coordinate with current providers and obtain outpatient records -The patient would benefit from groups on assertiveness training 04/13 - Continue current meds - Arrange family meeting with boyfriend (2) Borderline personality disorder 04/11 -The patient will need consistent boundaries -Again the patient would benefit from assertiveness training in order to improve communications rather than thinking other people should read her mind 04/13 - Urges to cut last night. Continue close observations. (3) Scleroderma 04/11 -Monitor for any difficulty swallowing during her hospital stay Has been reviewed with Dr. Vianney Desai Discharge / Aftercare Planning Primary Care Physician: Name: Dr. Burnett Psychiatrist: Name: Dr. Smith Date of Appointment: Apr 21, 2017 Time of Appointment: 11:00am Therapist: Name: Beulah Suarez Date of Appointment: Apr 19, 2017 Time of Appointment: 10:00am Appointment Notes: standing appt. [employer] Manager: Name: Jeannine Canelo Phone Number: [phone] Date of Appointment: Apr 18, 2017 Time of Appointment: 11:30am Appointment Notes: standing appt. Specialist: Name: Yoel Whittaker (Mammogram) Date of Appointment: Apr 18, 2017 Appointment Notes: pt. unsure of appt. time Visit Code E&M Code: 26535 Inventory Assets Strengths: Strong support from outpatient providers, consistent place to live Needs: Medication compliance Risk Factors Assessment : Yes /single/: No Higher / Fall in social status: No Health problems: Yes Mental Health Diagnoses: Yes Substance use disorders: No Previous attempt: Yes Previous psychiatric stay: Yes Hopelessness: Yes Smoker: No Protective Factors Assessment Confucianism beliefs: No : No Responsible for young children: No Employed: No Stable relationships: No Supportive family: Yes Good rapport with provider: Yes Data Vital Signs Last 24 Hrs: Date Time Temp Pulse Resp B/P (MAP) Pulse Ox O2 Delivery O2 Flow Rate FiO2 04/13/17 06:59 36.4 64 16 104/67 85 96/72 Meds Administered Last 24 Hrs: Meds Administered (Past 24Hrs) Medications (Trade) Dose Ordered Sig/Horacio Route Start Time Stop Time Status Last Admin Dose Admin Acetaminophen (Tylenol Tab) 1,000 mg NOW STAT PO 04/11/17 15:30 8/7/17 15:31 DC 04/11/17 15:37 1,000 MG Hydroxyzine HCl (Vistaril Tab) 50 mg HSZ PRN PO 04/11/17 15:45 05/11/17 15:44 04/12/17 21:10 50 MG Clonazepam (Klonopin Tab) 0.5 mg TID PO 04/11/17 21:00 05/11/17 20:59 04/13/17 10:02 0.5 MG Pantoprazole Sodium (Protonix Tab) 40 mg BID PO 04/11/17 21:00 05/11/17 20:59 04/13/17 10:03 40 MG Venlafaxine HCl (effeXOR EXTENDED REL CAP) 75 mg QAM PO 04/12/17 09:00 05/12/17 08:59 04/13/17 10:02 75 MG Pramipexole Dihydrochloride (miraPEX TAB) 1.5 mg QAM PO 04/12/17 09:00 05/12/17 08:59 04/13/17 10:03 1.5 MG Prazosin HCl (Prazosin) 2 mg HS PO 04/11/17 22:00 05/11/17 21:59 04/12/17 21:10 2 MG Trazodone HCl (Desyrel Tab) 100 mg HS PO 04/11/17 22:00 05/11/17 21:59 04/12/17 21:10 100 MG Gabapentin (Neurontin Cap) 100 mg BID@0900,1400 PO 04/12/17 14:00 05/12/17 13:59 04/13/17 10:03 100 MG Gabapentin (Neurontin Cap) 300 mg HS PO 04/12/17 22:00 05/12/17 21:59 04/12/17 21:10 300 MG Cholecalciferol (Vitamin D Tab) 2,000 inter.unit DAILY PO 04/12/17 12:00 05/12/17 11:59 04/13/17 10:03 2,000 INTER.UNIT Cevimeline HCl (Evoxac) 30 mg TID PO 04/12/17 22:00 05/12/17 21:59 04/13/17 10:02 30 MG Brexpiprazole (Rexulti) 1 mg QAM PO 04/13/17 09:00 04/13/17 09:00 DC 04/12/17 21:25 1 MG Brexpiprazole (Rexulti) 1.5 mg DAILY PO 04/13/17 09:00 05/13/17 08:59 04/13/17 10:03 1.5 MG Lab Results Last 24 Hrs: Last 24 Hours Test 04/13/17 07:03 Fasting Glucose 77 mg/dl Triglycerides Level 48 mg/dl Cholesterol Level 167 mg/dl HDL Cholesterol 49 mg/dl LDL Cholesterol, Calculated 108 mg/dl VLDL Cholesterol, Calculated 10 mg/dl Cholesterol/HDL Ratio 3.4 Hepatitis C Antibody NEG
[2017-04-13] MEDS: TRAZODONE HCL 100 MG TAB PO SCH (22:17)
[2017-04-13] MEDS: GABAPENTIN 300 MG CAP PO SCH (22:18)
[2017-04-13] MEDS: PRAZOSIN HCL 1 MG CAP PO SCH (22:19)
[2017-04-14 06:54] VITALS: BP_SYST 107; BP_SYST 91; BP_DIAS 62; BP_DIAS 71; PULSE 71; PULSE 91; TEMP 36.6
--- NOTE | 2017-04-14 08:37 | Psychiatric Progress Notes ---
Progress Note Date of Service Apr 14, 2017. Interval History 56-year-old female well known to our unit for depression, anxiety, PTSD, who presents again with an increase in self-injurious behaviors and passive wishes. She is unable to be managed on an outpatient basis at this time due to concerns for her safety. I have collaborated with Dr. Smith regarding her medications and we are in agreement that maximizing her trial of Rexulti should be our first priority. We will also encourage the patient to process her relationship with Hoang and what changes may be able to be made to make the relationship more satisfying in view of the fact that she says that she is going to stay with him. We're all recommending couples counseling but would need a therapist who is available on Saturdays. We will continue her other medications. Chief Complaint "Getting better". Subjective Patient was seen & assessed interval progress reviewed with Nursing. Staff report she demonstrates labile moods, at times bright and happy, and other times depressed. She reports improved sleep and mood, "better than it has been, but still not real high," rates it a 5 out of 10. She denies SI but reports ongoing hopelessness, especially with respect to her relationship, feeling that things will never change and "I'm at my wits end with it." She has a meeting with her boyfriend Hoang on Tuesday, and wants to plan what she is going to say, as she is worried she will "blank." Appetite is "ok," is eating some of each meal, and is improved from admission. She denies engaging in self injury since admission (although scraped the skin off her wrist with part of a pen in the ER) , and has multiple injuries from prior to admission. She reports urges to "mess with" the abrasion on her right lower leg, which she made by "rubbing an eraser into my skin." She has scrapes and cuts on her b/l upper extremities as well. Sleep Information Total Hours of Sleep: 8.25 Meal Information Percent of Breakfast Consumed: 25 Percent of Lunch Consumed: 100 Percent of Dinner Consumed: 75 Mental Status Exam During interview pt is: alert and oriented, cooperative Appearance: appropriately dressed, appropriately groomed, other (numerous scarns on b/l forearms, large bandaid on R LE) Eye contact is: fair Motor behavior is: steady gait & station, other (tired and sluggish) Speech: normal in rate, rhythm & volume Affect: mood congruent, depressed, anxious, constricted Mood is: depressed ("a 5") Thought process: goal directed Thought content: reality based without delusions Suicidal thought are: denied (but has urges to self harm) Homicidal thoughts are: denied Hallucinations: denies auditory, denies visual Intelligence estimated to be: average Insight: impaired Judgement: impaired Impression Mood slightly improved with hospitalization, is attending and participating in groups, and his processing stressors in her relationship. A family meeting has been scheduled for Tuesday with Hoang, and she wants to work with staff and what she wants to say to him. Her self-inflicted injuries are healing, and although she continues to report urges to harm or to get them, she denies engaging in self injury since admission. Plan (1) Major depressive disorder, recurrent severe without psychotic features 04/11/17 -Increase Rexulti to 1.5 mg daily. Patient will need to bring in her own supply -Continue other medications including Effexor XR 75 mg, trazodone 100 mg at bedtime, Klonopin 0.5 mg 3 times a day, prazosin 2 mg at bedtime. -Every 15 minute checks for safety -Encourage participation in group and individual counseling -Family meeting -Recommend outpatient couples therapy -Coordinate with current providers and obtain outpatient records -The patient would benefit from groups on assertiveness training 04/13 - 04/14 - Continue current meds - Arrange family meeting with boyfriend (2) Borderline personality disorder 04/11 -The patient will need consistent boundaries -Again the patient would benefit from assertiveness training in order to improve communications rather than thinking other people should read her mind 04/13 - Urges to cut last night. Continue close observations. (3) Scleroderma 04/11 -Monitor for any difficulty swallowing during her hospital stay Has been reviewed with Dr. Vianney Desai Discharge / Aftercare Planning Primary Care Physician: Name: Dr. Burnett Psychiatrist: Name: Dr. Smith Date of Appointment: Apr 21, 2017 Time of Appointment: 11:00am Therapist: Name: Beulah Suarez Date of Appointment: Apr 19, 2017 Time of Appointment: 10:00am Appointment Notes: standing appt. New Account Interviewer: Name: Jeannine Lemos Phone Number: [phone] Date of Appointment: Apr 18, 2017 Time of Appointment: 11:30am Appointment Notes: standing appt. Specialist: Name: Yoel Whittaker (Mammogram) Date of Appointment: Apr 18, 2017 Appointment Notes: pt. unsure of appt. time Visit Code E&M Code: 38178 Inventory Assets Strengths: Strong support from outpatient providers, consistent place to live Needs: Medication compliance Risk Factors Assessment : Yes /single/: No Higher / Fall in social status: No Health problems: Yes Mental Health Diagnoses: Yes Substance use disorders: No Previous attempt: Yes Previous psychiatric stay: Yes Hopelessness: Yes Smoker: No Protective Factors Assessment Episcopalian beliefs: No : No Responsible for young children: No Employed: No Stable relationships: No Supportive family: Yes Good rapport with provider: Yes Data Vital Signs Last 24 Hrs: Date Time Temp Pulse Resp B/P (MAP) Pulse Ox O2 Delivery O2 Flow Rate FiO2 04/14/17 06:54 36.6 71 16 107/71 91 91/62 Meds Administered Last 24 Hrs: Meds Administered (Past 24Hrs) Medications (Trade) Dose Ordered Sig/Horacio Route Start Time Stop Time Status Last Admin Dose Admin Venlafaxine HCl (effeXOR EXTENDED REL CAP) 75 mg QAM PO 04/12/17 09:00 05/12/17 08:59 04/13/17 10:02 75 MG Pramipexole Dihydrochloride (miraPEX TAB) 1.5 mg QAM PO 04/12/17 09:00 05/12/17 08:59 04/13/17 10:03 1.5 MG Gabapentin (Neurontin Cap) 100 mg BID@0900,1400 PO 04/12/17 14:00 05/12/17 13:59 04/13/17 13:32 100 MG Gabapentin (Neurontin Cap) 300 mg HS PO 04/12/17 22:00 05/12/17 21:59 04/13/17 22:18 300 MG Cholecalciferol (Vitamin D Tab) 2,000 inter.unit DAILY PO 04/12/17 12:00 05/12/17 11:59 04/13/17 10:03 2,000 INTER.UNIT Cevimeline HCl (Evoxac) 30 mg TID PO 04/12/17 22:00 04/13/17 14:26 DC 04/13/17 13:32 30 MG Brexpiprazole (Rexulti) 1 mg QAM PO 04/13/17 09:00 04/13/17 09:00 DC 04/12/17 21:25 1 MG Brexpiprazole (Rexulti) 1.5 mg DAILY PO 04/13/17 09:00 05/13/17 08:59 04/13/17 10:03 1.5 MG Cevimeline HCl (Evoxac) 30 mg TID PO 04/13/17 22:00 05/13/17 21:59 04/13/17 22:18 30 MG
[2017-04-14] MEDS: VENLAFAXINE HCL XR 75 MG CAPXR PO SCH (10:23)
[2017-04-14] MEDS: CHOLECALCIFEROL 1000 INTER.UNIT TAB PO SCH (10:24)
[2017-04-14] MEDS: CEVIMELINE 30 MG CAP PO SCH ×3 (10:24→22:08)
[2017-04-14] MEDS: PRAMIPEXOLE DIHYDROCHLORIDE 0.5 MG TAB PO SCH (10:24)
[2017-04-14] MEDS: CLONAZEPAM 0.5 MG TAB PO SCH ×3 (10:24→22:08)
[2017-04-14] MEDS: GABAPENTIN 100 MG CAP PO SCH ×2 (10:25→14:32)
[2017-04-14] MEDS: BREXPIPRAZOLE 1 MG TAB PO SCH (10:25)
[2017-04-14] MEDS: PANTOprazole SOD 40 MG TAB PO SCH ×2 (10:25→22:09)
[2017-04-14] MEDS: TRAZODONE HCL 100 MG TAB PO SCH (22:08)
[2017-04-14] MEDS: GABAPENTIN 300 MG CAP PO SCH (22:08)
[2017-04-14] MEDS: PRAZOSIN HCL 1 MG CAP PO SCH (22:09)
[2017-04-15 06:55] VITALS: BP_SYST 100; BP_SYST 85; BP_DIAS 52; BP_DIAS 66; PULSE 64; PULSE 80; TEMP 36.5
[2017-04-15] MEDS: CLONAZEPAM 0.5 MG TAB PO SCH ×3 (08:46→21:08)
[2017-04-15] MEDS: PRAMIPEXOLE DIHYDROCHLORIDE 0.5 MG TAB PO SCH (08:46)
[2017-04-15] MEDS: CEVIMELINE 30 MG CAP PO SCH ×3 (08:46→21:08)
[2017-04-15] MEDS: VENLAFAXINE HCL XR 75 MG CAPXR PO SCH (08:46)
[2017-04-15] MEDS: CHOLECALCIFEROL 1000 INTER.UNIT TAB PO SCH (08:47)
[2017-04-15] MEDS: GABAPENTIN 100 MG CAP PO SCH ×2 (08:47→13:55)
[2017-04-15] MEDS: BREXPIPRAZOLE 1 MG TAB PO SCH (08:47)
[2017-04-15] MEDS: PANTOprazole SOD 40 MG TAB PO SCH ×2 (08:47→21:09)
[2017-04-15] MEDS ORDERED: REXULTI 2 MG PO SCH (10:45)
--- NOTE | 2017-04-15 10:49 | Psychiatric Progress Notes ---
Progress Note Date of Service Apr 15, 2017. Interval History 56-year-old female well known to our unit for depression, anxiety, PTSD, who presents again with an increase in self-injurious behaviors and passive wishes. She is unable to be managed on an outpatient basis at this time due to concerns for her safety. I have collaborated with Dr. Smith regarding her medications and we are in agreement that maximizing her trial of Rexulti should be our first priority. We will also encourage the patient to process her relationship with Hoang and what changes may be able to be made to make the relationship more satisfying in view of the fact that she says that she is going to stay with him. We're all recommending couples counseling but would need a therapist who is available on Saturdays. We will continue her other medications. Chief Complaint "Nothing's changed.". Subjective Patient was seen & assessed interval progress reviewed with Treatment Team. The patient is angry today that her boyfriend Hoang has not called during her stay. She says that he normally calls her several times per day. She is angry and calls him names and says "To hell with him.". A meeting is scheduled with him on Tuesday. She says "Everything sucks." meaning her life including her work , medical problems and relationship. She talks about her job at the [employer], saying that she doesn't like the work or her boss, but she stays because she likes her peers. She doesn't change jobs because "the change could be worse". 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 She is unhappy with her weight, which she says has gone up ever since she started on meds, and would like to talk to the wireless sales associate. She does not answer questions about suicidality directly, but says "I'm here and I don't have any plans.". She continues to have thoughts to self injure but has not acted on them. She denies aud/vis hallucinations. Staff report that she is working on a list of talking points for the meeting. Review of Systems Constitutional: No fever, No chills, No sweats, No weight loss, No weakness, No fatigue, No problem reported ENT: No hearing loss, No unusual epistaxis, No nasal symptoms, No sore throat, No tinnitus, No dental problems, No trouble swallowing, No problem reported Respiratory: No cough, No sputum, No wheezing, No shortness of breath, No dyspnea on exertion, No dyspnea at rest, No hemoptysis, No problem reported Cardiovascular: No chest pain, No orthopnea, No PND, No edema, No claudication , No palpitations, No problem reported Abdomen: No pain, No nausea, No vomiting, No diarrhea, No constipation, No GI bleeding, No problem reported Musculoskeletal: No joint pain, No muscle pain, No swelling, No calf pain, No problem reported Neurologic: No memory loss, No paralysis, No weakness, No numbness/tingling, No vertigo, No balance problems, No problem reported Psychiatric: + depression symptoms Integumentary: No rash, No itch, No new/changing skin lesions, No color change , No bleeding, No problem reported Sleep Information Total Hours of Sleep: 6.00 Meal Information Percent of Breakfast Consumed: 25 Percent of Lunch Consumed: 75 Percent of Dinner Consumed: 75 Mental Status Exam During interview pt is: alert and oriented, cooperative, other (angry) Appearance: appropriately dressed, appropriately groomed, other (numerous scarns on b/l forearms, large bandaid on R LE) Eye contact is: poor Motor behavior is: steady gait & station Speech: normal in rate, rhythm & volume Affect: mood congruent, depressed, angry Mood is: depressed, angry Thought process: goal directed Thought content: reality based without delusions Suicidal thought are: denied (but has urges to self harm) Homicidal thoughts are: denied Hallucinations: denies auditory, denies visual Intelligence estimated to be: average Insight: impaired Judgement: impaired Impression Remains depressed and irritable. She gives multiple examples in her life where she is unhappy but unwilling to make any changes to improve it. She has difficulty expressing her feelings assertively, and when people don't get the message through her nonverbal messages, then she feels hurt, and then angry. Meeting with Hoang scheduled for Tuesday and will continue to encourage her to try to practice assertive communications. Will further increase Rexulti to 2 mg. daily Plan (1) Major depressive disorder, recurrent severe without psychotic features 04/11/17 -Increase Rexulti to 1.5 mg daily. Patient will need to bring in her own supply -Continue other medications including Effexor XR 75 mg, trazodone 100 mg at bedtime, Klonopin 0.5 mg 3 times a day, prazosin 2 mg at bedtime. -Every 15 minute checks for safety -Encourage participation in group and individual counseling -Family meeting -Recommend outpatient couples therapy -Coordinate with current providers and obtain outpatient records -The patient would benefit from groups on assertiveness training 04/13 - 04/14 - Continue current meds - Arrange family meeting with boyfriend 04/15 - Increase Rexulti to 2 mg. daily - Meeting with Hoang scheduled for Tuesday (2) Borderline personality disorder 04/11 -The patient will need consistent boundaries -Again the patient would benefit from assertiveness training in order to improve communications rather than thinking other people should read her mind 04/13 - Urges to cut last night. Continue close observations. 04/15 - Assist the patient to learn and utilize healthy coping strategies (3) Scleroderma 04/11 -Monitor for any difficulty swallowing during her hospital stay Has been reviewed with Dr. Vianney Desai Discharge / Aftercare Planning Primary Care Physician: Name: Dr. Burnett Psychiatrist: Name: Dr. Smith Date of Appointment: Apr 21, 2017 Time of Appointment: 11:00am Therapist: Name: Beulah Suarez Date of Appointment: Apr 19, 2017 Time of Appointment: 10:00am Appointment Notes: standing appt. Die Turner: Name: Jeannine Canelo Phone Number: [phone] Date of Appointment: Apr 18, 2017 Time of Appointment: 11:30am Appointment Notes: standing appt. Specialist: Name: Yoel Whittaker (Mammogram) Date of Appointment: Apr 18, 2017 Appointment Notes: pt. unsure of appt. time Visit Code E&M Code: 67090 Inventory Assets Strengths: Strong support from outpatient providers, consistent place to live Needs: Medication compliance Risk Factors Assessment : Yes /single/: No Higher / Fall in social status: No Health problems: Yes Mental Health Diagnoses: Yes Substance use disorders: No Previous attempt: Yes Previous psychiatric stay: Yes Hopelessness: Yes Smoker: No Protective Factors Assessment Jainism beliefs: No : No Responsible for young children: No Employed: No Stable relationships: No Supportive family: Yes Good rapport with provider: Yes Data Vital Signs Last 24 Hrs: Date Time Temp Pulse Resp B/P (MAP) Pulse Ox O2 Delivery O2 Flow Rate FiO2 04/15/17 06:55 36.5 64 16 100/66 80 85/52 Meds Administered Last 24 Hrs: Meds Administered (Past 24Hrs) Medications (Trade) Dose Ordered Sig/Horacio Route Start Time Stop Time Status Last Admin Dose Admin Cevimeline HCl (Evoxac) 30 mg TID PO 04/13/17 22:00 05/13/17 21:59 04/15/17 08:46 30 MG Lab Results Last 24 Hrs: 04/11/17 13:37 Red Blood Count 4.26, Mean Corpuscular Volume 92.7, Mean Corpuscular Hemoglobin 31.0, Mean Corpuscular Hemoglobin Concent 33.4, Mean Platelet Volume 9.7, Neutrophils (%) (Auto) 48.9, Lymphocytes (%) (Auto) 40.3, Monocytes (%) (Auto) 8.8, Eosinophils (%) (Auto) 0.9, Basophils (%) (Auto) 0.9, Neutrophils # (Auto) 2.28, Lymphocytes # (Auto) 1.88, Monocytes # (Auto) 0.41, Eosinophils # (Auto) 0.04, Basophils # (Auto) 0.04 04/11/17 13:37 Test 04/11/17 13:01 04/11/17 13:37 04/11/17 13:44 04/13/17 07:03 Urine Color YELLOW Urine Appearance CLEAR (CLEAR) Urine pH 5.5 (4.5-7.5) Urine Specific [place] 1.021 (1.000-1.030) Urine Protein NEG (NEG) Urine Glucose (UA) NEG (NEG) Urine Ketones NEG (NEG) Urine Occult Blood NEG (NEG) Urine Nitrite NEG (NEG) Urine Bilirubin NEG (NEG) Urine Urobilinogen NEG (NEG) Urine Leukocyte Esterase NEG (NEG) Urine Opiates Screen NEG (NEG) Urine Methadone, Qualitative NEG (NEG) Urine Barbiturates NEG (NEG) Urine Phencyclidine (PCP) Level NEG (NEG) Ur Amphetamine/Methamphetamine NEG (NEG) MDMA (Ecstasy) Screen NEG (NEG) Urine Benzodiazepines Screen NEG (NEG) Urine Cocaine Metabolite NEG (NEG) Urine Marijuana (THC) NEG (NEG) White Blood Count 4.66 K/uL (4.8-10.8) Red Blood Count 4.26 M/uL (4.2-5.4) Hemoglobin 13.2 g/dL (12.0-16.0) Hematocrit 39.5 % (37-47) Mean Corpuscular Volume 92.7 fL (80-100) Mean Corpuscular Hemoglobin 31.0 pg (25-34) Mean Corpuscular Hemoglobin Concent 33.4 g/dl (32-36) Platelet Count 231 K/uL (130-400) Mean Platelet Volume 9.7 fL (7.4-10.4) Neutrophils (%) (Auto) 48.9 % Lymphocytes (%) (Auto) 40.3 % Monocytes (%) (Auto) 8.8 % Eosinophils (%) (Auto) 0.9 % Basophils (%) (Auto) 0.9 % Neutrophils # (Auto) 2.28 K/uL (1.4-6.5) Lymphocytes # (Auto) 1.88 K/uL (1.2-3.4) Monocytes # (Auto) 0.41 K/uL (0.11-0.59) Eosinophils # (Auto) 0.04 K/uL (0-0.5) Basophils # (Auto) 0.04 K/uL (0-0.2) RDW Standard Deviation 44.7 fL (36.4-46.3) RDW Coefficient of Variation 13.1 % (11.5-14.5) Immature Granulocyte % (Auto) 0.2 % Immature Granulocyte # (Auto) 0.01 K/uL (0.00-0.02) Anion Gap 6.0 mmol/L (3-11) Est Creatinine Clear Calc Drug Dose 75.2 ml/min Estimated GFR () 101.5 Estimated GFR (Non- 87.5 BUN/Creatinine Ratio 21.8 (10-20) Calcium Level 9.4 mg/dl (8.5-10.1) Total Bilirubin 0.2 mg/dl (0.2-1) Direct Bilirubin 0.1 mg/dl (0-0.2) Aspartate Amino Transf (AST/SGOT) 13 U/L (15-37) Alanine Aminotransferase (ALT/SGPT) 21 U/L (12-78) Alkaline Phosphatase 118 U/L (45-117) Total Protein 7.8 gm/dl (6.4-8.2) Albumin 3.6 gm/dl (3.4-5.0) Thyroid Stimulating Hormone (TSH) 0.972 uIu/ml (0.300-4.500) Ethyl Alcohol mg/dL < 3.0 mg/dl (0-3) Bedside Glucose 86 mg/dl (70-90) Fasting Glucose 77 mg/dl (70-99) Triglycerides Level 48 mg/dl (0-150) Cholesterol Level 167 mg/dl (0-200) HDL Cholesterol 49 mg/dl LDL Cholesterol, Calculated 108 mg/dl VLDL Cholesterol, Calculated 10 mg/dl Cholesterol/HDL Ratio 3.4 Hepatitis C Antibody NEG (NEG)
[2017-04-15] MEDS: GABAPENTIN 300 MG CAP PO SCH (21:08)
[2017-04-15] MEDS: TRAZODONE HCL 100 MG TAB PO SCH (21:08)
[2017-04-15] MEDS: PRAZOSIN HCL 1 MG CAP PO SCH (21:09)
[2017-04-15] MEDS: hydrOXYzine HCL 25 MG TAB PO PRN (22:00)
[2017-04-16 07:06] VITALS: BP_SYST 96; BP_DIAS 61; BP_DIAS 64; PULSE 70; PULSE 76; TEMP 36.5
[2017-04-16] MEDS ORDERED: BREXPIPRAZOLE 1 MG TAB PO SCH (09:00)
[2017-04-16] MEDS: CEVIMELINE 30 MG CAP PO SCH ×3 (09:06→21:55)
[2017-04-16] MEDS: VENLAFAXINE HCL XR 75 MG CAPXR PO SCH (09:06)
[2017-04-16] MEDS: CHOLECALCIFEROL 1000 INTER.UNIT TAB PO SCH (09:07)
[2017-04-16] MEDS: GABAPENTIN 100 MG CAP PO SCH ×2 (09:08→14:04)
[2017-04-16] MEDS: PANTOprazole SOD 40 MG TAB PO SCH ×2 (09:08→21:55)
[2017-04-16] MEDS: PRAMIPEXOLE DIHYDROCHLORIDE 0.5 MG TAB PO SCH (09:09)
[2017-04-16] MEDS: CLONAZEPAM 0.5 MG TAB PO SCH ×3 (09:09→21:55)
--- NOTE | 2017-04-16 10:11 | Psych Management Progress Note ---
Psychiatry Miscellaneous Date of Service: Apr 16, 2017. Patient seen, MS assessed. Rates mood as a 4/10 and that she is humiliated. Listed goal as personal safety for day (no intent or plan to self mutilate). Appears quite flat. Cooperative with care and treatment plan as outlined by CARDIOGRAPH OPERATOR. Encouraged participation in therapeutic activities.
--- NOTE | 2017-04-16 10:37 | Psychiatric Progress Notes ---
Progress Note Date of Service Apr 16, 2017. Interval History 56-year-old female well known to our unit for depression, anxiety, PTSD, who presents again with an increase in self-injurious behaviors and passive wishes. She is unable to be managed on an outpatient basis at this time due to concerns for her safety. I have collaborated with Dr. Smith regarding her medications and we are in agreement that maximizing her trial of Rexulti should be our first priority. We will also encourage the patient to process her relationship with Hoang and what changes may be able to be made to make the relationship more satisfying in view of the fact that she says that she is going to stay with him. We're all recommending couples counseling but would need a therapist who is available on Saturdays. We will continue her other medications. Chief Complaint "OK". Subjective Patient was seen & assessed interval progress reviewed with Treatment Team. The patient had a difficult evening after her boyfriend Hoang visited. He brought her service dog to visit, which went well, but he also brought her some colored pencils with erasers, and after his visit, used the erasers to abrade her arms to "cause hurt". She said that she was feeling "edgy" but could not identify why. She did ask him why he had not called at all to which he said that she did not sound like she wanted to talk when he first spoke with her, so thought he would leave her alone. She did not communicate that she was hurt by this. Today she is still having thought to self injure but says she is not acting on them and plans to cope with them by "staying busy and not isolating". She has a number of things she wants to talk about with Hoang in the meeting , but has not written them down yet. She denies SI. She says she is tired, and is unsure if this is from the increase in Rexulti. She is distressed because she does not want to be on meds that cause weight gain, which Rexulti can. We discussed increasing her exercise and watching her food choices. Review of Systems Constitutional: + fatigue ENT: No hearing loss, No unusual epistaxis, No nasal symptoms, No sore throat, No tinnitus, No dental problems, No trouble swallowing, No problem reported Respiratory: No cough, No sputum, No wheezing, No shortness of breath, No dyspnea on exertion, No dyspnea at rest, No hemoptysis, No problem reported Cardiovascular: No chest pain, No orthopnea, No PND, No edema, No claudication , No palpitations, No problem reported Abdomen: No pain, No nausea, No vomiting, No diarrhea, No constipation, No GI bleeding, No problem reported Musculoskeletal: No joint pain, No muscle pain, No swelling, No calf pain, No problem reported Neurologic: No memory loss, No paralysis, No weakness, No numbness/tingling, No vertigo, No balance problems, No problem reported Psychiatric: + depression symptoms Integumentary: + problem reported (new abraded areas to left forearm) Sleep Information Total Hours of Sleep: 7.00 Meal Information Percent of Breakfast Consumed: 25 Percent of Lunch Consumed: 50 Percent of Dinner Consumed: 75 Mental Status Exam During interview pt is: alert and oriented, cooperative Appearance: appropriately dressed, appropriately groomed, other (numerous scarns on b/l forearms, large bandaid on R LE) Eye contact is: fair Motor behavior is: steady gait & station, psychomotor agitation (nervous shaking of her legs) Speech: normal in rate, rhythm & volume Affect: mood congruent, depressed Mood is: depressed Thought process: goal directed Thought content: reality based without delusions Suicidal thought are: denied (but has urges to self harm) Homicidal thoughts are: denied Hallucinations: denies auditory, denies visual Intelligence estimated to be: average Insight: impaired Judgement: impaired Impression Remains depressed and irritable. Tolerating Rexult 2 mg but not happy about the possibility of weight gain. Will move to to see if it reducing daytime tiredness. Plan on meeting with Hoang on Tuesday. Continue safety checks for SIB Plan (1) Major depressive disorder, recurrent severe without psychotic features 04/11/17 -Increase Rexulti to 1.5 mg daily. Patient will need to bring in her own supply -Continue other medications including Effexor XR 75 mg, trazodone 100 mg at bedtime, Klonopin 0.5 mg 3 times a day, prazosin 2 mg at bedtime. -Every 15 minute checks for safety -Encourage participation in group and individual counseling -Family meeting -Recommend outpatient couples therapy -Coordinate with current providers and obtain outpatient records -The patient would benefit from groups on assertiveness training 04/13 - 04/14 - Continue current meds - Arrange family meeting with boyfriend 04/15 - Increase Rexulti to 2 mg. daily - Meeting with Hoang scheduled for Monday 04/16 - Will switch Rexulti to HS to reduce daytime sedations. (2) Borderline personality disorder 04/11 -The patient will need consistent boundaries -Again the patient would benefit from assertiveness training in order to improve communications rather than thinking other people should read her mind 04/13 - Urges to cut last night. Continue close observations. 04/15 - Assist the patient to learn and utilize healthy coping strategies (3) Scleroderma 04/11 -Monitor for any difficulty swallowing during her hospital stay Has been reviewed with Dr. Vinaney Desai Discharge / Aftercare Planning Primary Care Physician: Name: Dr. Burnett Psychiatrist: Name: Dr. Smith Date of Appointment: Apr 21, 2017 Time of Appointment: 11:00am Therapist: Name: Beulah Suarez Date of Appointment: Apr 19, 2017 Time of Appointment: 10:00am Appointment Notes: standing appt. Pediatric Geneticist: Name: Jeannine Canelo Phone Number: [phone] Date of Appointment: Apr 18, 2017 Time of Appointment: 11:30am Appointment Notes: standing appt. Specialist: Name: oYel Whittaker (Mammogram) Date of Appointment: Apr 18, 2017 Appointment Notes: pt. unsure of appt. time Other: Name of Appointment #1: Sintia Shaikh Date of Appointment #1: Apr 22, 2017 Time of Appointment #1: 9:00am Visit Code E&M Code: 04718 Inventory Assets Strengths: Strong support from outpatient providers, consistent place to live Needs: Medication compliance Risk Factors Assessment : Yes /single/: No Higher / Fall in social status: No Health problems: Yes Mental Health Diagnoses: Yes Substance use disorders: No Previous attempt: Yes Previous psychiatric stay: Yes Hopelessness: Yes Smoker: No Protective Factors Assessment Synagogue beliefs: No : No Responsible for young children: No Employed: No Stable relationships: No Supportive family: Yes Good rapport with provider: Yes Data Vital Signs Last 24 Hrs: Date Time Temp Pulse Resp B/P (MAP) Pulse Ox O2 Delivery O2 Flow Rate FiO2 04/16/17 07:06 36.5 70 16 96/61 76 96/64 Meds Administered Last 24 Hrs: Meds Administered (Past 24Hrs) Medications (Trade) Dose Ordered Sig/Horacio Route Start Time Stop Time Status Last Admin Dose Admin Brexpiprazole (Rexulti) 2 mg DAILY PO 04/16/17 09:00 05/16/17 08:59 04/16/17 09:08 2 MG Lab Results Last 24 Hrs: 04/11/17 13:37 Red Blood Count 4.26, Mean Corpuscular Volume 92.7, Mean Corpuscular Hemoglobin 31.0, Mean Corpuscular Hemoglobin Concent 33.4, Mean Platelet Volume 9.7, Neutrophils (%) (Auto) 48.9, Lymphocytes (%) (Auto) 40.3, Monocytes (%) (Auto) 8.8, Eosinophils (%) (Auto) 0.9, Basophils (%) (Auto) 0.9, Neutrophils # (Auto) 2.28, Lymphocytes # (Auto) 1.88, Monocytes # (Auto) 0.41, Eosinophils # (Auto) 0.04, Basophils # (Auto) 0.04 04/11/17 13:37 Test 04/11/17 13:01 04/11/17 13:37 04/11/17 13:44 04/13/17 07:03 Urine Color YELLOW Urine Appearance CLEAR (CLEAR) Urine pH 5.5 (4.5-7.5) Urine Specific [place] 1.021 (1.000-1.030) Urine Protein NEG (NEG) Urine Glucose (UA) NEG (NEG) Urine Ketones NEG (NEG) Urine Occult Blood NEG (NEG) Urine Nitrite NEG (NEG) Urine Bilirubin NEG (NEG) Urine Urobilinogen NEG (NEG) Urine Leukocyte Esterase NEG (NEG) Urine Opiates Screen NEG (NEG) Urine Methadone, Qualitative NEG (NEG) Urine Barbiturates NEG (NEG) Urine Phencyclidine (PCP) Level NEG (NEG) Ur Amphetamine/Methamphetamine NEG (NEG) MDMA (Ecstasy) Screen NEG (NEG) Urine Benzodiazepines Screen NEG (NEG) Urine Cocaine Metabolite NEG (NEG) Urine Marijuana (THC) NEG (NEG) White Blood Count 4.66 K/uL (4.8-10.8) Red Blood Count 4.26 M/uL (4.2-5.4) Hemoglobin 13.2 g/dL (12.0-16.0) Hematocrit 39.5 % (37-47) Mean Corpuscular Volume 92.7 fL (80-100) Mean Corpuscular Hemoglobin 31.0 pg (25-34) Mean Corpuscular Hemoglobin Concent 33.4 g/dl (32-36) Platelet Count 231 K/uL (130-400) Mean Platelet Volume 9.7 fL (7.4-10.4) Neutrophils (%) (Auto) 48.9 % Lymphocytes (%) (Auto) 40.3 % Monocytes (%) (Auto) 8.8 % Eosinophils (%) (Auto) 0.9 % Basophils (%) (Auto) 0.9 % Neutrophils # (Auto) 2.28 K/uL (1.4-6.5) Lymphocytes # (Auto) 1.88 K/uL (1.2-3.4) Monocytes # (Auto) 0.41 K/uL (0.11-0.59) Eosinophils # (Auto) 0.04 K/uL (0-0.5) Basophils # (Auto) 0.04 K/uL (0-0.2) RDW Standard Deviation 44.7 fL (36.4-46.3) RDW Coefficient of Variation 13.1 % (11.5-14.5) Immature Granulocyte % (Auto) 0.2 % Immature Granulocyte # (Auto) 0.01 K/uL (0.00-0.02) Anion Gap 6.0 mmol/L (3-11) Est Creatinine Clear Calc Drug Dose 75.2 ml/min Estimated GFR () 101.5 Estimated GFR (Non- 87.5 BUN/Creatinine Ratio 21.8 (10-20) Calcium Level 9.4 mg/dl (8.5-10.1) Total Bilirubin 0.2 mg/dl (0.2-1) Direct Bilirubin 0.1 mg/dl (0-0.2) Aspartate Amino Transf (AST/SGOT) 13 U/L (15-37) Alanine Aminotransferase (ALT/SGPT) 21 U/L (12-78) Alkaline Phosphatase 118 U/L (45-117) Total Protein 7.8 gm/dl (6.4-8.2) Albumin 3.6 gm/dl (3.4-5.0) Thyroid Stimulating Hormone (TSH) 0.972 uIu/ml (0.300-4.500) Ethyl Alcohol mg/dL < 3.0 mg/dl (0-3) Bedside Glucose 86 mg/dl (70-90) Fasting Glucose 77 mg/dl (70-99) Triglycerides Level 48 mg/dl (0-150) Cholesterol Level 167 mg/dl (0-200) HDL Cholesterol 49 mg/dl LDL Cholesterol, Calculated 108 mg/dl VLDL Cholesterol, Calculated 10 mg/dl Cholesterol/HDL Ratio 3.4 Hepatitis C Antibody NEG (NEG)
[2017-04-16] MEDS: GABAPENTIN 300 MG CAP PO SCH (21:55)
[2017-04-16] MEDS: TRAZODONE HCL 100 MG TAB PO SCH (21:55)
[2017-04-16] MEDS: PRAZOSIN HCL 1 MG CAP PO SCH (21:56)
[2017-04-17 07:08] VITALS: BP_SYST 110; BP_SYST 99; BP_DIAS 65; BP_DIAS 75; PULSE 64; PULSE 71; TEMP 36.7
[2017-04-17] MEDS: CEVIMELINE 30 MG CAP PO SCH ×3 (09:14→21:46)
[2017-04-17] MEDS: PRAMIPEXOLE DIHYDROCHLORIDE 0.5 MG TAB PO SCH (09:14)
[2017-04-17] MEDS: VENLAFAXINE HCL XR 75 MG CAPXR PO SCH (09:14)
[2017-04-17] MEDS: PANTOprazole SOD 40 MG TAB PO SCH ×2 (09:15→21:48)
[2017-04-17] MEDS: GABAPENTIN 100 MG CAP PO SCH ×2 (09:15→13:45)
[2017-04-17] MEDS: CHOLECALCIFEROL 1000 INTER.UNIT TAB PO SCH (09:15)
[2017-04-17] MEDS: CLONAZEPAM 0.5 MG TAB PO SCH ×3 (09:16→21:46)
--- NOTE | 2017-04-17 09:53 | Psychiatric Progress Notes ---
Progress Note Date of Service Apr 17, 2017. Interval History 56-year-old female well known to our unit for depression, anxiety, PTSD, who presents again with an increase in self-injurious behaviors and passive wishes. She is unable to be managed on an outpatient basis at this time due to concerns for her safety. I have collaborated with Dr. Smith regarding her medications and we are in agreement that maximizing her trial of Rexulti should be our first priority. We will also encourage the patient to process her relationship with Hoang and what changes may be able to be made to make the relationship more satisfying in view of the fact that she says that she is going to stay with him. We're all recommending couples counseling but would need a therapist who is available on Saturdays. We will continue her other medications. Chief Complaint "OK". Subjective Patient was seen & assessed interval progress reviewed with Treatment Team. The patient says that she had a good visit with her boyfriend and her service dog last evening. They did not talk about any relationship issues, and have a meeting tomorrow AM. She says that she continues to have thoughts of SIB but has not acted. She denies thoughts of suicide. She would like to go home after the meeting with Hoang tomorrow, but when asked what has changed since admission, she says that the SIB thoughts are less frequent. She realizes that if the meeting doesn't go well, she will need to stay and process it, and not put herself at risk of self harm by going home immediately. Her anxiety is high , rated 8/10 with 10 being the worst. She is anxious about taking her Rexulti at HS, and worried about the possible weight gain. She talks about having done well on Sustenna, but had to stop due to involuntary muscle movements. She likes the idea of an HAYNES and is disappointed that Rexulti doesn't have an HAYNES form. Staff report that she had a nightmare last night and was also incontinent of urine. Review of Systems Constitutional: No fever, No chills, No sweats, No weight loss, No weakness, No fatigue, No problem reported ENT: No hearing loss, No unusual epistaxis, No nasal symptoms, No sore throat, No tinnitus, No dental problems, No trouble swallowing, No problem reported Respiratory: No cough, No sputum, No wheezing, No shortness of breath, No dyspnea on exertion, No dyspnea at rest, No hemoptysis, No problem reported Cardiovascular: No chest pain, No orthopnea, No PND, No edema, No claudication , No palpitations, No problem reported Abdomen: No pain, No nausea, No vomiting, No diarrhea, No constipation, No GI bleeding, No problem reported Musculoskeletal: No joint pain, No muscle pain, No swelling, No calf pain, No problem reported Neurologic: No memory loss, No paralysis, No weakness, No numbness/tingling, No vertigo, No balance problems, No problem reported Psychiatric: + depression symptoms, + anxiety Integumentary: No rash, No itch, No new/changing skin lesions, No color change , No bleeding, No problem reported Sleep Information Total Hours of Sleep: 8.00 Meal Information Percent of Breakfast Consumed: 50 Percent of Lunch Consumed: 75 Percent of Dinner Consumed: 100 Mental Status Exam During interview pt is: alert and oriented, cooperative Appearance: appropriately dressed, appropriately groomed, other (numerous scarns on b/l forearms, large bandaid on R LE) Eye contact is: fair Motor behavior is: steady gait & station, psychomotor agitation (nervous shaking of her legs) Speech: normal in rate, rhythm & volume Affect: mood congruent, depressed Mood is: depressed Thought process: goal directed Thought content: reality based without delusions Suicidal thought are: denied (but has urges to self harm) Homicidal thoughts are: denied Hallucinations: denies auditory, denies visual Intelligence estimated to be: average Insight: impaired Judgement: impaired Impression Anxious today, thinking about her meds. Rexulti will be given at HS starting tonight in an attempt to reduce daytime dulling. She is unhappy about the potential weight gain as a side effect, and would not be surprised if she refuses further titration and requests to change agents, as she has long opposed anything that could put weight on her. She continues with thoughts of SIB and as recently as Tuesday had self injured with erasers. She is requesting to go home after family meeting tomorrow, but I believe this may be too soon given the level of their conflicts. Plan (1) Major depressive disorder, recurrent severe without psychotic features 04/11/17 -Increase Rexulti to 1.5 mg daily. Patient will need to bring in her own supply -Continue other medications including Effexor XR 75 mg, trazodone 100 mg at bedtime, Klonopin 0.5 mg 3 times a day, prazosin 2 mg at bedtime. -Every 15 minute checks for safety -Encourage participation in group and individual counseling -Family meeting -Recommend outpatient couples therapy -Coordinate with current providers and obtain outpatient records -The patient would benefit from groups on assertiveness training 04/13 - 04/14 - Continue current meds - Arrange family meeting with boyfriend 04/15 - Increase Rexulti to 2 mg. daily - Meeting with Hoang scheduled for Monday 04/16 - Will switch Rexulti to HS to reduce daytime sedations. 04/17 - Continue current meds - Meeting with Hoang tomorrow (2) Borderline personality disorder 04/11 -The patient will need consistent boundaries -Again the patient would benefit from assertiveness training in order to improve communications rather than thinking other people should read her mind 04/13 - Urges to cut last night. Continue close observations. 04/15 - Assist the patient to learn and utilize healthy coping strategies (3) Scleroderma 04/11 -Monitor for any difficulty swallowing during her hospital stay Has been reviewed with Dr. Vianney Desai Discharge / Aftercare Planning Primary Care Physician: Name: Dr. Burnett Psychiatrist: Name: Dr. Smith Date of Appointment: Apr 21, 2017 Time of Appointment: 11:00am Therapist: Name: Beulah Suarez Date of Appointment: Apr 19, 2017 Time of Appointment: 10:00am Appointment Notes: standing appt. Director [facility]: Name: Jeannine Lemos Phone Number: [phone] Date of Appointment: Apr 18, 2017 Time of Appointment: 11:30am Appointment Notes: standing appt. Specialist: Name: Yoel Whittaker (Mammogram) Date of Appointment: Apr 18, 2017 Appointment Notes: pt. unsure of appt. time Other: Name of Appointment #1: Sintia Shaikh Date of Appointment #1: Apr 22, 2017 Time of Appointment #1: 9:00am Visit Code E&M Code: 17398 Inventory Assets Strengths: Strong support from outpatient providers, consistent place to live Needs: Medication compliance Risk Factors Assessment : Yes /single/: No Higher / Fall in social status: No Health problems: Yes Mental Health Diagnoses: Yes Substance use disorders: No Previous attempt: Yes Previous psychiatric stay: Yes Hopelessness: Yes Smoker: No Protective Factors Assessment Pentecostalism beliefs: No : No Responsible for young children: No Employed: No Stable relationships: No Supportive family: Yes Good rapport with provider: Yes Data Vital Signs Last 24 Hrs: Date Time Temp Pulse Resp B/P (MAP) Pulse Ox O2 Delivery O2 Flow Rate FiO2 04/17/17 07:08 36.7 64 16 99/65 71 110/75 Meds Administered Last 24 Hrs: Meds Administered (Past 24Hrs) Medications (Trade) Dose Ordered Sig/Horacio Route Start Time Stop Time Status Last Admin Dose Admin Brexpiprazole (Rexulti) 2 mg DAILY PO 04/16/17 09:00 04/16/17 10:38 DC 04/16/17 09:08 2 MG Lab Results Last 24 Hrs: 04/11/17 13:37 Red Blood Count 4.26, Mean Corpuscular Volume 92.7, Mean Corpuscular Hemoglobin 31.0, Mean Corpuscular Hemoglobin Concent 33.4, Mean Platelet Volume 9.7, Neutrophils (%) (Auto) 48.9, Lymphocytes (%) (Auto) 40.3, Monocytes (%) (Auto) 8.8, Eosinophils (%) (Auto) 0.9, Basophils (%) (Auto) 0.9, Neutrophils # (Auto) 2.28, Lymphocytes # (Auto) 1.88, Monocytes # (Auto) 0.41, Eosinophils # (Auto) 0.04, Basophils # (Auto) 0.04 04/11/17 13:37 Test 04/11/17 13:01 04/11/17 13:37 04/11/17 13:44 04/13/17 07:03 Urine Color YELLOW Urine Appearance CLEAR (CLEAR) Urine pH 5.5 (4.5-7.5) Urine Specific [place] 1.021 (1.000-1.030) Urine Protein NEG (NEG) Urine Glucose (UA) NEG (NEG) Urine Ketones NEG (NEG) Urine Occult Blood NEG (NEG) Urine Nitrite NEG (NEG) Urine Bilirubin NEG (NEG) Urine Urobilinogen NEG (NEG) Urine Leukocyte Esterase NEG (NEG) Urine Opiates Screen NEG (NEG) Urine Methadone, Qualitative NEG (NEG) Urine Barbiturates NEG (NEG) Urine Phencyclidine (PCP) Level NEG (NEG) Ur Amphetamine/Methamphetamine NEG (NEG) MDMA (Ecstasy) Screen NEG (NEG) Urine Benzodiazepines Screen NEG (NEG) Urine Cocaine Metabolite NEG (NEG) Urine Marijuana (THC) NEG (NEG) White Blood Count 4.66 K/uL (4.8-10.8) Red Blood Count 4.26 M/uL (4.2-5.4) Hemoglobin 13.2 g/dL (12.0-16.0) Hematocrit 39.5 % (37-47) Mean Corpuscular Volume 92.7 fL (80-100) Mean Corpuscular Hemoglobin 31.0 pg (25-34) Mean Corpuscular Hemoglobin Concent 33.4 g/dl (32-36) Platelet Count 231 K/uL (130-400) Mean Platelet Volume 9.7 fL (7.4-10.4) Neutrophils (%) (Auto) 48.9 % Lymphocytes (%) (Auto) 40.3 % Monocytes (%) (Auto) 8.8 % Eosinophils (%) (Auto) 0.9 % Basophils (%) (Auto) 0.9 % Neutrophils # (Auto) 2.28 K/uL (1.4-6.5) Lymphocytes # (Auto) 1.88 K/uL (1.2-3.4) Monocytes # (Auto) 0.41 K/uL (0.11-0.59) Eosinophils # (Auto) 0.04 K/uL (0-0.5) Basophils # (Auto) 0.04 K/uL (0-0.2) RDW Standard Deviation 44.7 fL (36.4-46.3) RDW Coefficient of Variation 13.1 % (11.5-14.5) Immature Granulocyte % (Auto) 0.2 % Immature Granulocyte # (Auto) 0.01 K/uL (0.00-0.02) Anion Gap 6.0 mmol/L (3-11) Est Creatinine Clear Calc Drug Dose 75.2 ml/min Estimated GFR () 101.5 Estimated GFR (Non- 87.5 BUN/Creatinine Ratio 21.8 (10-20) Calcium Level 9.4 mg/dl (8.5-10.1) Total Bilirubin 0.2 mg/dl (0.2-1) Direct Bilirubin 0.1 mg/dl (0-0.2) Aspartate Amino Transf (AST/SGOT) 13 U/L (15-37) Alanine Aminotransferase (ALT/SGPT) 21 U/L (12-78) Alkaline Phosphatase 118 U/L (45-117) Total Protein 7.8 gm/dl (6.4-8.2) Albumin 3.6 gm/dl (3.4-5.0) Thyroid Stimulating Hormone (TSH) 0.972 uIu/ml (0.300-4.500) Ethyl Alcohol mg/dL < 3.0 mg/dl (0-3) Bedside Glucose 86 mg/dl (70-90) Fasting Glucose 77 mg/dl (70-99) Triglycerides Level 48 mg/dl (0-150) Cholesterol Level 167 mg/dl (0-200) HDL Cholesterol 49 mg/dl LDL Cholesterol, Calculated 108 mg/dl VLDL Cholesterol, Calculated 10 mg/dl Cholesterol/HDL Ratio 3.4 Hepatitis C Antibody NEG (NEG)
[2017-04-17] MEDS: ACETAMINOPHEN 325 MG TAB PO PRN (16:10)
[2017-04-17] MEDS: PRAZOSIN HCL 1 MG CAP PO SCH (21:47)
[2017-04-17] MEDS: GABAPENTIN 300 MG CAP PO SCH (21:47)
[2017-04-17] MEDS: BREXPIPRAZOLE 1 MG TAB PO SCH (21:49)
[2017-04-17] MEDS: TRAZODONE HCL 100 MG TAB PO SCH (21:52)
[2017-04-18 06:56] VITALS: BP_SYST 96; BP_SYST 97; BP_DIAS 63; BP_DIAS 64; PULSE 66; PULSE 69; TEMP 36.5
[2017-04-18] MEDS: CEVIMELINE 30 MG CAP PO SCH ×3 (09:00→21:03)
[2017-04-18] MEDS: VENLAFAXINE HCL XR 75 MG CAPXR PO SCH (09:59)
[2017-04-18] MEDS: GABAPENTIN 100 MG CAP PO SCH ×2 (09:59→13:57)
[2017-04-18] MEDS: CLONAZEPAM 0.5 MG TAB PO SCH ×3 (10:00→21:03)
[2017-04-18] MEDS: CHOLECALCIFEROL 1000 INTER.UNIT TAB PO SCH (10:00)
[2017-04-18] MEDS: PANTOprazole SOD 40 MG TAB PO SCH ×2 (10:00→21:04)
[2017-04-18] MEDS: PRAMIPEXOLE DIHYDROCHLORIDE 0.5 MG TAB PO SCH (10:00)
--- NOTE | 2017-04-18 10:24 | Psychiatric Progress Notes ---
Progress Note Date of Service Apr 18, 2017. Interval History 56-year-old female well known to our unit for depression, anxiety, PTSD, who presents again with an increase in self-injurious behaviors and passive wishes. She is unable to be managed on an outpatient basis at this time due to concerns for her safety. I have collaborated with Dr. Smith regarding her medications and we are in agreement that maximizing her trial of Rexulti should be our first priority. We will also encourage the patient to process her relationship with Hoang and what changes may be able to be made to make the relationship more satisfying in view of the fact that she says that she is going to stay with him. We're all recommending couples counseling but would need a therapist who is available on Saturdays. We will continue her other medications. Chief Complaint "Okay". Subjective Patient was seen & assessed interval progress reviewed with Treatment Team. Nursing staff report she has processed what she wants to her meeting with her boyfriend today, and had some things in mind that she hoped to happen as a result. She had her meeting with him this morning, and per social work, was upset that he made a comment about his fears that she would kill herself if he left her. He also told her that he loves her and wants to try to work things out. On assessment, she is focused on the statement he made about his fears that she would harm herself if he left, saying "that's no reason to stay with me ," "I don't know what to believe." She says she is now having suicidal thoughts because "I can't get those words out of my head," and has urges to cut, "but I' m not acting on them." She says she "hasn't even processed it yet," and agrees to go to staff if she feels unsafe. Sleep Information Total Hours of Sleep: 7.00 Meal Information Percent of Breakfast Consumed: 50 Percent of Lunch Consumed: 75 Percent of Dinner Consumed: 70 Mental Status Exam During interview pt is: alert and oriented, cooperative Appearance: appropriately dressed, appropriately groomed Eye contact is: poor Motor behavior is: steady gait & station, psychomotor agitation (rocking back and forth throughout interview) Speech: other (minimal, monotone) Affect: depressed, anxious, other (incongruent with stated mood) Mood is: other ("okay") Thought process: goal directed (vague answers at times) Thought content: reality based without delusions Suicidal thought are: denied (but has urges to cut) Homicidal thoughts are: denied Hallucinations: denies auditory, denies visual Intelligence estimated to be: average Insight: impaired Judgement: impaired Impression Anxious and distraught after family meeting with Hoang, focusing on a statement he made about his fears that she'd commit suicide if he left her, with urges to cut. [place] has been moved to in an attempt to reduce daytime dulling. As recently as Tuesday self injured with erasers. She does not feel ready to go home after family meeting. Plan (1) Major depressive disorder, recurrent severe without psychotic features 04/11/17 -Increase Rexulti to 1.5 mg daily. Patient will need to bring in her own supply -Continue other medications including Effexor XR 75 mg, trazodone 100 mg at bedtime, Klonopin 0.5 mg 3 times a day, prazosin 2 mg at bedtime. -Every 15 minute checks for safety -Encourage participation in group and individual counseling -Family meeting -Recommend outpatient couples therapy -Coordinate with current providers and obtain outpatient records -The patient would benefit from groups on assertiveness training 04/13 - 04/14 - Continue current meds - Arrange family meeting with boyfriend 04/15 - Increase Rexulti to 2 mg. daily - Meeting with Hoang scheduled for Monday 04/16 - Will switch Rexulti to HS to reduce daytime sedations. 04/17 - Continue current meds - Meeting with Hoang tomorrow 04/18 - Patient distraught after meeting, urges to cut, doesn't feel safe to leave today. Encouraged to process her emotions and what happened in meeting, and to utilize healthy coping skills. (2) Borderline personality disorder 04/11 - The patient will need consistent boundaries - Again the patient would benefit from assertiveness training in order to improve communications rather than thinking other people should read her mind 04/13 - Urges to cut last night. Continue close observations. 04/15 - Assist the patient to learn and utilize healthy coping strategies 04/18 - See above. (3) Scleroderma 04/11 -Monitor for any difficulty swallowing during her hospital stay Has been reviewed with Dr. Vianney Desai Discharge / Aftercare Planning Primary Care Physician: Name: Dr. Burnett Psychiatrist: Name: Dr. Smith Date of Appointment: Apr 21, 2017 Time of Appointment: 11:00am Therapist: Name: Beulah Daniela Date of Appointment: Apr 19, 2017 Time of Appointment: 10:00am Appointment Notes: standing appt. Batch Heat Treat Operator: Name: Jeannine Lemos Phone Number: [phone] Date of Appointment: Apr 18, 2017 Time of Appointment: 11:30am Appointment Notes: standing appt. Specialist: Name: Yoel Whittaker (Mammogram) Date of Appointment: Apr 18, 2017 Appointment Notes: pt. unsure of appt. time Other: Name of Appointment #1: Sintia Shaikh Date of Appointment #1: Apr 22, 2017 Time of Appointment #1: 9:00am Visit Code E&M Code: 11526 Inventory Assets Strengths: Strong support from outpatient providers, consistent place to live Needs: Medication compliance Risk Factors Assessment : Yes /single/: No Higher / Fall in social status: No Health problems: Yes Mental Health Diagnoses: Yes Substance use disorders: No Previous attempt: Yes Previous psychiatric stay: Yes Hopelessness: Yes Smoker: No Protective Factors Assessment Faith beliefs: No : No Responsible for young children: No Employed: No Stable relationships: No Supportive family: Yes Good rapport with provider: Yes Data Vital Signs Last 24 Hrs: Date Time Temp Pulse Resp B/P (MAP) Pulse Ox O2 Delivery O2 Flow Rate FiO2 04/18/17 06:56 36.5 66 16 96/63 69 97/64 Meds Administered Last 24 Hrs: Meds Administered (Past 24Hrs) Medications (Trade) Dose Ordered Sig/Horacio Route Start Time Stop Time Status Last Admin Dose Admin Brexpiprazole (Rexulti) 2 mg HS PO 04/17/17 22:00 05/16/17 08:59 04/17/17 21:49 2 MG
[2017-04-18] MEDS: ACETAMINOPHEN 325 MG TAB PO PRN (18:26)
[2017-04-18] MEDS: PRAZOSIN HCL 1 MG CAP PO SCH (21:04)
[2017-04-18] MEDS: GABAPENTIN 300 MG CAP PO SCH (21:04)
[2017-04-18] MEDS: BREXPIPRAZOLE 1 MG TAB PO SCH (21:05)
[2017-04-18] MEDS: TRAZODONE HCL 100 MG TAB PO SCH (21:06)
[2017-04-19 06:57] VITALS: BP_SYST 93; BP_SYST 99; BP_DIAS 62; BP_DIAS 65; PULSE 67; PULSE 83; TEMP 36.4
[2017-04-19] MEDS: VENLAFAXINE HCL XR 75 MG CAPXR PO SCH (08:17)
[2017-04-19] MEDS: PANTOprazole SOD 40 MG TAB PO SCH (08:18)
[2017-04-19] MEDS: GABAPENTIN 100 MG CAP PO SCH (08:18)
[2017-04-19] MEDS: PRAMIPEXOLE DIHYDROCHLORIDE 0.5 MG TAB PO SCH (08:18)
[2017-04-19] MEDS: CHOLECALCIFEROL 1000 INTER.UNIT TAB PO SCH (08:18)
[2017-04-19] MEDS: CLONAZEPAM 0.5 MG TAB PO SCH (08:19)
[2017-04-19] MEDS: CEVIMELINE 30 MG CAP PO SCH (08:20)
[2017-04-19] MEDS ORDERED: BREX1TAB3 PO (08:47)
--- NOTE | 2017-04-19 08:55 | Discharge Instructions ---
Discharge Information Report Includes Report will include the: Discharge Instructions & Summary Admission Admission Date / Time: Apr 11, 2017 at 15:40 Reason for Admission: Major Depressive Disorder Discharge Discharge Diagnosis / Problem: Depression Discharge Goals Goal(s): Decrease discomfort, Improve disease control, Prevent Disease Progression Activity Recommendations Activity Limitations: resume your previous activity . Instructions / Follow-Up Instructions / Follow-Up . SPECIAL CARE INSTRUCTIONS: 1. Follow through with your scheduled aftercare appointments. If unable to keep an appointment, please call to reschedule. 2. Take your medication only as prescribed. Medication should not be changed or stopped without the approval of your doctor. In the event of worsening symptoms or concerns about side effects, contact your doctor immediately. 3. Utilize new healthy coping skills, anger management skills, and stress management skills learned during your hospitalization. Journal feelings and process them with a support person. Identify stressors or situations that may result in relapse, deterioration or inappropriate behaviors and develop a plan to deal with those issues. 4. If your coping skills are ineffective and you are in crisis, contact your outpatient providers for direction. If unable to reach your providers, please call the CAN HELP LINE AT or go to the closest Emergency Room. 5. Avoid alcohol and un-prescribed drugs. 6. You have been provided with the Mental Health Advance Directives Pamphlet for your review. AFTERCARE APPOINTMENTS: * Please call your insurance company prior to your scheduled appointment to confirm your aftercare providers are covered. Take your insurance information to your appointments. . Discharge / Aftercare Planning Primary Care Physician: Name: Dr. Burnett Psychiatrist: Name: Dr. Smith Date of Appointment: Apr 21, 2017 Time of Appointment: 11:00am Therapist: Name Of Therapist: Beulah Suarez Date of Appointment: Apr 19, 2017 Time of Appointment: 10:00am Appointment Comments: standing appt. Full Stack Engineer: Name: Jeannine Lemos Phone Number: [phone] Date of Appointment: Apr 18, 2017 Time of Appointment: 11:30am Appointment Notes: standing appt. Specialist: Name: Yoel Whittaker (Mammogram) Date of Appointment: Apr 18, 2017 Appointment Notes: pt. unsure of appt. time Other: Name of Appointment #1: Sintia Shaikh Date of Appointment #1: Apr 22, 2017 Time of Appointment #1: 9:00am . Follow-Up Care Plan for Follow-Up Care: Will see her therapist today and her psychiatrist on Current Hospital Diet Patient's current hospital diet: Regular Diet Discharge Diet Recommended Diet: Regular Diet Procedures Procedures Performed: No Pending Studies Pending Studies at Discharge: No Medical Emergencies . Who to Call and When: Medical Emergencies: For questions or emergencies related to your hospital stay, please contact the Inpatient Behavioral Health Unit at [phone]. A medical instrument technician is on-call 28/03 for the Behavioral Health Unit for emergencies At any time you feel your situation is an emergency, you may also call 911 immediately. . Non-Emergent Contact Non-Emergency issues call your: Psychiatrist, Therapist Advance Directives Existing Advance Directive: No Do You Have an Existing Mental: No Existing Living Will: No Existing Power of Sugar Cane Planter Machine Operator: No Advance Directives Info Given: To Pt/S.O. Advance Directives Reason: Declines as Mental Health Visit. Discharge Summary Admission HPI Per the Admitting provider: Daksha Hernandez is a 56 yo woman who was last on our unit in November of this year, at that time presenting with more irritability and focus on medical conditions. She was also having conflicts with her long-term boyfriend Hoang, feeling that he treated her like she was stupid and made bad decisions. Since that time, the patient has continued in treatment with Dr. Smith, whom she has seen for years and with her therapist Beulah De Souza whom she sees weekly. She has continued to be in conflict with her boyfriend. She says their relationship "sucks" as he continues to shut her down when she talks, discounts her opinion and tells her she can't do anything right. Her general response to this is to get angry and walk away and not confront him with her feelings. She wants him to guess how she is feeling and gives an example of them driving together to an event and she refused to talk with him the whole way, and now says "he should have known I was angry". As her mood has deteriorated in recent weeks, she has been having more thoughts and acts of self injury. She generally uses a razor to cut on her arms and legs and has also been abrading her right calf with an eraser and occasionally uses pen caps. She denies that she is having active thoughts of suicide but says if she didn't wake up that that would make her happy and also says if she accidentally cuts an artery in her self-injurious behaviors, that would be okay with her as well. Today the patient is anxious during the interview, grossly shaking her right leg. She avoids all eye contact, staring at the floor. She says that her mood is "terrible". Her sleep has been disturbed with both difficulty falling asleep as well as staying asleep, getting only 3-4 hours sleep per night. She has frequent nightmares but cannot remember the content. She denies napping during the day. Her appetite has been down but she also says she is trying to diet to lose weight. Her energy is up and down. Her anxiety is "pretty high". She denies regular panic attacks although recently did have a panic attack when she went to the [place] with her boyfriend. She denies auditory or visual hallucinations. She says that she is still missing 1-2 doses of her medicine per week. This occurs generally if there is a break in her routine. She continues to self injure and has superficial cuts to both arms using a razor. She also has a large abraded area on the exterior aspect of her right calf that she says she did with an eraser. She told nursing staff that she was also considering buying a curling iron in order to burn herself. We discuss her relationship with her boyfriend Hoang further. Although she has talked with Dr. Leach about leaving him, she ultimately says that she doesn't want to leave him because he's "better than nothing". I have communicated with her outpatient psychiatrist, Dr. Smith, to discuss his observations. He indicates that she continues to be noncompliant with her medications at times although feels that this has improved since her last hospitalization. They had discussed her unhappiness in her relationship with Hoang and the fact that she might consider leaving. They have not been able to have a good trial of Rexulti because she has had complaints of restlessness as a side effect but would like to see a good trial of Rexulti before moving onto another medication. He also agrees that making some changes in her relationship will be necessary in order to make any positive change. Hospital Course (1) Major depressive disorder, recurrent severe without psychotic features 04/11/17 -Increase Rexulti to 1.5 mg daily. Patient will need to bring in her own supply -Continue other medications including Effexor XR 75 mg, trazodone 100 mg at bedtime, Klonopin 0.5 mg 3 times a day, prazosin 2 mg at bedtime. -Every 15 minute checks for safety -Encourage participation in group and individual counseling -Family meeting -Recommend outpatient couples therapy -Coordinate with current providers and obtain outpatient records -The patient would benefit from groups on assertiveness training 04/13 - 04/14 - Continue current meds - Arrange family meeting with boyfriend 04/15 - Increase Rexulti to 2 mg. daily - Meeting with Hoang scheduled for Monday 04/16 - Will switch Rexulti to HS to reduce daytime sedations. 04/17 - Continue current meds - Meeting with Hoang tomorrow 04/18 - Patient distraught after meeting, urges to cut, doesn't feel safe to leave today. Encouraged to process her emotions and what happened in meeting, and to utilize healthy coping skills. (2) Borderline personality disorder 04/11 - The patient will need consistent boundaries - Again the patient would benefit from assertiveness training in order to improve communications rather than thinking other people should read her mind 04/13 - Urges to cut last night. Continue close observations. 04/15 - Assist the patient to learn and utilize healthy coping strategies 04/18 - See above. (3) Scleroderma 04/11 -Monitor for any difficulty swallowing during her hospital stay Risk Factors Assessment : Yes /single/: No Higher / Fall in social status: No Health problems: Yes Mental Health Diagnoses: Yes Substance use disorders: No Previous attempt: Yes Previous psychiatric stay: Yes Hopelessness: Yes Smoker: No Protective Factors Assessment Mormon beliefs: No : No Responsible for young children: No Employed: No Stable relationships: No Supportive family: Yes Good rapport with provider: Yes Day of Discharge Assessment COURSE OF HOSPITALIZATION: The patient was on our unit for 8 days. She was admitted due to depression and worsening thoughts of suicide and self injury. Her frustrations included her ongoing struggles in her relationship with her boyfriend Hoang, chronic medical conditions including scleroderma, and general dissatisfaction with her life. During her stay we collaborated with her outpatient psychiatrist, Dr. Smith and we angry to maximize her trial of Rexulti, and dosage reached 2 mg daily. All of her other outpatient medications were continued. During her stay she had several episodes of self injury specifically to her forearms, using an eraser to abrade. She had difficulty in communicating her mother emotions verbally, preferring to act them out which is a similar pattern to her communication style with Hoang. She rarely expresses her emotions to him but ask them out and expects him to understand. Family meeting was held with Hoang yesterday. He expressed his frustration with that poor communication and had considered leaving the relationship, but feared she would commit suicide. In that meeting the patient talked about not having enough activity with Hoang when he is home on weekends. He agreed to do more things with her but she needed to do the planning. He also agreed to participate in couples counseling with a willingness to remain in the relationship and work on it. The patient had a difficult time after the meeting, finding it difficult to hear that one of the reasons he stayed was because of his fear of suicide. She was able to process this work through it and today denies any suicidal thinking or thoughts to self injure. She is requesting discharge, has an appointment with her therapist this morning at 10 AM. DAY OF DISCHARGE ASSESSMENT: Today the patient is requesting discharge. She feels ready to go home, and is talking about exploring all options to find a couple's therapist who can see she and Hoang on weekends. She feels that she is in a better place than yesterday, and denies any acute suicidal thinking or self-injurious thoughts. Today she is casually and appropriately dressed and groomed. Gait and station are within normal limits. Eye contact is good. Affect remains blunted. Speech is of normal rate volume and tone. Thoughts are organized, goal-directed, and without evidence of thought disorder. Recent and remote memory are in intact per conversation. Intelligence is estimated to be average. Insight and judgment are improved over admission. Laboratory Test 04/11/17 13:01 04/11/17 13:37 04/11/17 13:44 04/13/17 07:03 Urine Color YELLOW Urine Appearance CLEAR Urine pH 5.5 Urine Specific Ama 1.021 Urine Protein NEG Urine Glucose (UA) NEG Urine Ketones NEG Urine Occult Blood NEG Urine Nitrite NEG Urine Bilirubin NEG Urine Urobilinogen NEG Urine Leukocyte Esterase NEG Urine Opiates Screen NEG Urine Methadone, Qualitative NEG Urine Barbiturates NEG Urine Phencyclidine (PCP) Level NEG Ur Amphetamine/Methamphetamine NEG MDMA (Ecstasy) Screen NEG Urine Benzodiazepines Screen NEG Urine Cocaine Metabolite NEG Urine Marijuana (THC) NEG White Blood Count 4.66 Red Blood Count 4.26 Hemoglobin 13.2 Hematocrit 39.5 Mean Corpuscular Volume 92.7 Mean Corpuscular Hemoglobin 31.0 Mean Corpuscular Hemoglobin Concent 33.4 Platelet Count 231 Mean Platelet Volume 9.7 Neutrophils (%) (Auto) 48.9 Lymphocytes (%) (Auto) 40.3 Monocytes (%) (Auto) 8.8 Eosinophils (%) (Auto) 0.9 Basophils (%) (Auto) 0.9 Neutrophils # (Auto) 2.28 Lymphocytes # (Auto) 1.88 Monocytes # (Auto) 0.41 Eosinophils # (Auto) 0.04 Basophils # (Auto) 0.04 RDW Standard Deviation 44.7 RDW Coefficient of Variation 13.1 Immature Granulocyte % (Auto) 0.2 Immature Granulocyte # (Auto) 0.01 Sodium Level 142 Potassium Level 3.6 Chloride Level 106 Carbon Dioxide Level 30 Anion Gap 6.0 Blood Urea Nitrogen 17 Creatinine 0.77 Est Creatinine Clear Calc Drug Dose 75.2 Estimated GFR () 101.5 Estimated GFR (Non- 87.5 BUN/Creatinine Ratio 21.8 Random Glucose 90 Calcium Level 9.4 Total Bilirubin 0.2 Direct Bilirubin 0.1 Aspartate Amino Transferase (AST) 13 Alanine Aminotransferase (ALT) 21 Alkaline Phosphatase 118 Total Protein 7.8 Albumin 3.6 Thyroid Stimulating Hormone (TSH) 0.972 Ethyl Alcohol mg/dL < 3.0 POC Glucose 86 Fasting Glucose 77 Triglycerides Level 48 Cholesterol Level 167 HDL Cholesterol 49 LDL Cholesterol, Calculated 108 VLDL Cholesterol, Calculated 10 Cholesterol/HDL Ratio 3.4 Hepatitis C Antibody NEG Total Time Total Time Spent (min): Greater than 30 minutes Total Time Included: examination of the patient, discharge planning, medication reconciliation, communication with other providers Tobacco Cessation at Discharge Smoking Status: Never Smoker FDA approved Prescription: non-smoker
== END 2017-04-19 09:20 | disposition home or self-care (01) | DRG 885 ==
LOC: C.EDB 12:47 → C.MHU 15:40
PROVIDERS: ADMIT Psychiatry & Neurology Psychiatry; ATTEND Psychiatry & Neurology Psychiatry
DX: F33.2 Major depressive disorder, recurrent severe without psychotic features (principal); R45.851 Suicidal ideations; F60.3 Borderline personality disorder; M34.9 Systemic sclerosis, unspecified; F41.9 Anxiety disorder, unspecified; F43.10 Post-traumatic stress disorder, unspecified; Z91.14 Patient's other noncompliance with medication regimen; Z91.5 Personal history of self-harm; Z62.810 Personal history of physical and sexual abuse in childhood; Z62.811 Personal history of psychological abuse in childhood; Z79.899 Other long term (current) drug therapy

== ENCOUNTER 2017-05-15 11:59 | Emergency (ER) | payer OTHER, MEDICARE ==
[~2017-05-15] VITALS: Ht 165.1 cm; Wt 67.9 kg
[~2017-05-15 11:59] MED LIST changes: +BIOT1CAP3; -BIOT1CAP3 PO; +BREX1TAB3 PO; +CHOL20007 PO; -CHOL20009 PO; -CYAN100073 PO; +DSY/150 PO; -DSY50 PO; -EFFSR75 PO; +GABA-112 PO; +GABA-113 PO; -GABA300C19 PO; +KLN5X PO; -NIFE60TA57 PO; -PALI117I IM; +PANT40TA PO; -PRAZ1CAP10 PO; +PRAZ2CAP3 PO; -PRT/40 PO; +VENL75CA PO
[2017-05-15 12:02] VITALS: TEMP 36.6; Ht 165.1 cm; Wt 67.9 kg
[2017-05-15] MEDS ORDERED: ARIP2TAB3 PO (12:20)
[2017-05-15] MEDS ORDERED: RANITIDINE HCL 150 MG TAB PO ONE (13:00)
[2017-05-15 13:37] VITALS: BP 112/68; PULSE 76; O2SAT 98
--- NOTE | 2017-05-15 18:03 | EMERGENCY ROOM VISIT NOTE ---
ED Visit Note First contact with patient: 12:38 I have personally seen and evaluated the patient with the PA. I agree with the diagnosis and management decisions and have been personally involved in the case. Please see [place] PA-C's notes for further details of the history, physical and visit.
--- NOTE | 2017-05-15 22:26 | EMERGENCY ROOM VISIT NOTE ---
ED Visit Note First contact with patient: 12:38 Chief Complaint: I think him having allergic reaction to my medication. History of Present Illness: Ms. Hernandez is a 56-year-old white female who ambulates into the ED accompanied by male friend and her escort dog complaining of a possible allergic reaction. Patient reports a proximally 4 weeks ago she was started on Abilify. Then 1 week ago her Abilify dose was increased. She goes to on to report then 2 days ago she started getting itchy skin with hives and swelling around her eyes. Since that time her symptoms have been constant and gradually increasing in intensity. She has not identified any aggravating or alleviating factors related to her symptoms. She did not take any medications for her symptoms but does report she skip one dose of her medication. She denies any associated symptoms including fevers, chills, sweats, visual change, eye drainage, sore throat, sensations of throat swelling, voice changes, difficulty swallowing, cough, wheezing, shortness of breath, nausea, vomiting. Review of Systems: As noted above in history of present illness. 8 body systems were reviewed and found to be negative as noted above. Past Medical History: (1) Bipolar disorder (2) Borderline depression (3) Borderline personality disorder (4) Cholecystectomy (5) Esophageal dysphagia (6) post traumatic stress disorder (7) PTSD (post-traumatic stress disorder) (8) Raynaud's phenomenon (9) Scleroderma (10) Sjogren's (11) Stomach Problems Current Medications: Medications Dose Route/Sig Max Daily Dose Days Date Category Dose Instructions Abilify (Aripiprazole) 2 Mg Tab 2 Mg PO 05/15/17 Reported Vitamin D3 (Cholecalciferol) 2,000 Unit Tab 1 Tab PO DAILY 30 04/12/17 Reported Evoxac (Cevimeline Hcl) 30 Mg Cap 30 Mg PO TID 04/12/17 Reported Biotin 5,000 Mcg Cap DAILY 04/12/17 Reported Imitrex (Sumatriptan Succinate) 100 Mg Tab 100 Mg PO PRN 04/12/17 Reported Neurontin (Gabapentin) 300 Mg Cap 300 Mg PO HS 04/12/17 Reported Neurontin (Gabapentin) 100 Mg Cap 100 Mg PO BID 04/12/17 Reported Protonix (Pantoprazole Sodium) 40 Mg Tab 40 Mg PO BID 04/11/17 Reported Clonazepam 0.5 Mg Tab 0.5 Mg PO TID 04/11/17 Reported Mirapex (Pramipexole Dihydrochloride) 1.5 Mg Tab 1.5 Mg PO DAILY 04/11/17 Reported Trazodone HCl 150 Mg Tab 0.6 Tab PO HS 04/11/17 Reported 2/3 OF A 150 MG TABLET Effexor Xr (Venlafaxine Hcl) 75 Mg Cap 75 Mg PO QAM 04/11/17 Reported Prazosin (Prazosin HCl) 2 Mg Cap 2 Mg PO DAILY 04/11/17 Reported Allergies to Medications: Doxycycline, prednisone, propranolol, aripiprazole. Social History: Patient is not employed; she feels safe in her home environment ; she denies tobacco use. Physical Examination: Vital Signs: Date Time Temp Pulse Resp B/P (MAP) Pulse Ox O2 Delivery O2 Flow Rate FiO2 05/15/17 13:37 76 18 112/68 98 Room Air 05/15/17 12:02 36.6 93 20 109/73 98 Room Air GENERAL: 56-year-old female in mild distress due to symptoms, nontoxic-appearing , afebrile and hemodynamically stable. NEUROLOGICAL: Awake, alert and oriented to person, place and time. Answering questions appropriately and following commands. SKIN: Warm, dry and pink. General: Patient has mild diffuse erythema of the skin. There is positive dermatographia testing. Over her arm she does have groupings of hives. Around both eyes patient has mild erythema and edema. There is no warmth to the area of erythema around the eyes. There is no lymphangitis. This does not appear infectious. HEENT: Atraumatic and normocephalic. PERRLA. No corneal foreign bodies. Sclera white and conjunctiva pink. No drainage from naris. No swelling of the lips or tongues. Oral cavity moist and pink. Airway is patent. Pharynx is nonerythematous or edematous. Speech normal. No lymphadenopathy. Trachea midline. No jugular venous distention. No audible or auscultatory stridor. THORAX: Lungs sounds are clear to auscultation and equal bilaterally with symmetrical chest wall. No wheezing, rales or rhonchi. No increased respiratory effort or rate. ABDOMEN: Flat, soft and nontender. Positive bowel sounds in all quadrants. No guarding, rigidity or organomegaly. EXTREMITIES: Moves all extremities well on command and with purpose. All distal neurovascular statuses are intact and equal bilaterally. No tenderness or erythema over the joints. ED Course: Patient is assessed as noted above. Patient's medication list was reviewed. Patient was given 50 mg of Benadryl and 150 mg of Zantac by mouth. I did consult the pharmacist on duty; Vicky, for treatment recommendations since she was allergic to steroids that included reactions of migraine headaches and hives. After an extensive search she was not able to find any significant alternatives for treatment. Additionally we did speak about stopping the Abilify immediately and she reported that would be appropriate and there should be no adverse reactions could she was on such a low dose. Patient's case was reviewed with Dr. Case; she independently assessed the patient we agreed on diagnostic approach, treatment, disposition and plan. Patient was educated about today's findings and instructed on her treatment plan ; she verbalizes understanding and agreement with this plan. Clinical Impression: Allergic reaction. Disposition: Patient discharged home in stable condition accompanied by her ; prior to departure she was reassessed and subjectively reported she was feeling better and I noted that there was decreased redness and swelling around her eyes and she reported her skin felt less itchy. Plan: Patient was encouraged to stop her Abilify. Patient is encouraged to continue her other medications as prescribed. Patient was encouraged use 50 mg of Benadryl every 6 hours and Zantac every 12 hours until resolution of all itching skin or redness of the skin. Patient was encouraged to follow-up with her PCP and her psychiatrist for recheck and possible changes in medications. Patient was encouraged to discuss possible fusion operator follow-up with her PCP for both her reactions to Abilify and prednisone. Patient was encouraged return ED for worsening skin eruptions, sensations of throat swelling, shortness of breath, cough, wheezing or any new/concerning symptoms. LATE NOTE: I did discuss with the patient the possible use of EpiPen; she reported she had not EpiPen at home for her allergic reaction to bee stings. She was not sure if her EpiPen was . I did inform her that when she arrived home if she found it she could call and talk to me specifically and I would prescribe and updated EpiPen.
== END 2017-05-15 14:07 | disposition home or self-care (01) ==
LOC: C.EDB 12:00 → C.EDD 14:07
DX: T78.40XA Allergy, unspecified, initial encounter (principal); X58.XXXA Exposure to other specified factors, initial encounter; F41.9 Anxiety disorder, unspecified; F32.9 Major depressive disorder, single episode, unspecified; I73.00 Raynaud's syndrome without gangrene; Z79.899 Other long term (current) drug therapy; Z88.8 Allergy status to other drugs, medicaments and biological substances

== ENCOUNTER → 2017-07-19 | Outpatient (CLI) | payer OTHER, MEDICARE ==
[~2017-07-19] MED LIST changes: +ARIP2TAB3 PO; -BREX1TAB3 PO
--- NOTE | 2017-07-24 14:51 | PULMONARY FUNCTION TEST ---
Spirometry is normal. Repeat study done following bronchodilators showed no significant change in function. Flow volume loops are normal. Lung volumes show a normal TLC and FRC, but with a slight decrease in residual volume to 75%. This would be still considered within the limits of normal. Diffusion is normal at 91%.
== END | disposition home or self-care (01) ==
LOC: C.RC 11:05
PROVIDERS: ATTEND Internal Medicine Rheumatology
DX: M34.89 Other systemic sclerosis (principal); R06.02 Shortness of breath

== ENCOUNTER 2017-09-29 12:37 | Inpatient (IN) | payer OTHER, MEDICARE ==
[~2017-09-29] VITALS: Ht 165.1 cm; Wt 67.0 kg
[2017-09-29] MEDS ORDERED: GABA1CAP PO (13:12)
[2017-09-29] MEDS ORDERED: CLON0.5T3 PO (13:12)
[2017-09-29] MEDS ORDERED: NIFE30TA83 PO (13:12)
[2017-09-29] MEDS ORDERED: VORT10TA12 PO (13:13)
[2017-09-29 14:14] LABS: BASO % 0.6 %; BASO ABS # 0.03 K/uL (0-0.2); EOS % 0.2 %; EOS ABS # 0.01 K/uL (0-0.5); HEMATOCRIT 38.6 % (37-47); HEMOGLOBIN 13.2 g/dL (12.0-16.0); IG# 0.01 K/uL (0.00-0.02); LYMPH % 42.3 %; LYMPH ABS # 2.02 K/uL (1.2-3.4); MEAN CELL VOLUME 90.8 fL (80-100); MEAN CORPUSCULAR HEMOGLOBIN 31.1 pg (25-34); MEAN CORPUSCULAR HGB CONC 34.2 g/dl (32-36); MEAN PLATELET VOLUME 9.6 fL (7.4-10.4); MONO % 7.3 %; MONO ABS # 0.35 K/uL (0.11-0.59); NEUT % 49.4 %; NEUT ABS # 2.35 K/uL (1.4-6.5); PLATELET COUNT 227 K/uL (130-400); RED CELL DISTRIBUTION WIDTH CV 12.9 % (11.5-14.5); RED CELL DISTRIBUTION WIDTH SD 42.4 fL (36.4-46.3); WHITE BLOOD COUNT 4.77 K/uL (4.8-10.8)
[2017-09-29 14:40] LABS: ALBUMIN 3.5 gm/dl (3.4-5.0); ALT/SGPT 26 U/L (12-78); AST/SGOT 18 U/L (15-37); BLOOD UREA NITROGEN 14 mg/dl (7-18); CALCIUM 8.9 mg/dl (8.5-10.1); CARBON DIOXIDE 28 mmol/L (21-32); GLUCOSE 81 mg/dl (70-99); POTASSIUM 3.8 mmol/L (3.5-5.1); SODIUM 139 mmol/L (136-145)
[2017-09-29 14:51] LABS: ALKALINE PHOSPHATASE 131 U/L (45-117); TOTAL PROTEIN 7.5 gm/dl (6.4-8.2)
[2017-09-29] MEDS ORDERED: ALUMINUM/MAGNESIUM SUSP 30 ML UDC PO PRN (16:45)
[2017-09-29] MEDS ORDERED: TRAZODONE HCL 100 MG TAB PO PRN (16:45)
[2017-09-29] MEDS ORDERED: hydrOXYzine HCL 25 MG TAB PO PRN (16:45)
[2017-09-29] MEDS ORDERED: MAGNESIUM HYDROXIDE SUSP 30 ML UDC PO PRN (16:45)
[2017-09-29] MEDS ORDERED: BISMUTH SUBSALICYLATE PER ML OMNICELL CHARGE PO PRN (16:45)
[2017-09-29] MEDS ORDERED: SODIUM CHLORIDE 0.65% NA SOLN 45 ML (OCEAN) PRN (16:45)
[2017-09-29] MEDS ORDERED: SUMATRIPTAN SUCC TAB 100 MG TAB PO PRN (16:45)
[2017-09-29 17:30] VITALS: O2SAT 98
[2017-09-29] MEDS: CLONAZEPAM 0.5 MG TAB PO SCH (18:09)
[2017-09-29 18:53] VITALS: BP 119/79; PULSE 73; TEMP 36.2; BMI 24.6
--- NOTE | 2017-09-29 20:17 | EMERGENCY ROOM VISIT NOTE ---
History Report prepared by Romario: Gaetano Mayberry Under the Supervision of: Dr. North Ibarra M.D. First contact with patient: 13:13 Chief Complaint: MENTAL HEALTH EVALUATION Stated Complaint: DEPRESSION, SUCIDAL THOUGHTS, SELF INJURY History of Present Illness The patient is a 56 year old female who presents to the Emergency Room with concerns over her worsening/declining mental status which she states have been occurring for the past week. The patient claims that her "thoughts have not been good" and her "coping skills are crap." She has been having thoughts of hurting herself and began intentionally cutting her right wrist last night and her right forearm . The patient attributes her current mental decline to a change in her medication by Dr. Vega. She is being taken off of Effexor and placed on TranquileX. She states this was done to decrease irritability. The TranquileX makes her very nauseous in the morning after she takes it. The patient is currently living at home alone, but came to the ED today to receive an inpatient stay in a psych facility. She continued to mention that she fell in the parking lot of her house and injured her right knee. This is currently being evaluated by orthopedics. Pt denies LOC, headache, fevers, chills, diaphoresis, visual changes, neck pain, chest pain, breathing difficulties, nausea, vomiting, abdominal pain, back pain, melena, hematochezia, urinary symptoms, numbness, weakness, lymphadenopathy, rash, or other complaints. Source of History: patient Onset: 1 week CARBONATION TESTER Position: other (Mental Health ) Quality: other (Mental Health, Suicidal) Timing: worsening Review of Systems See HPI for pertinent positives and negatives. A total of ten systems were reviewed and were otherwise negative. Past Medical & Surgical Medical Problems: (1) Bipolar disorder (2) Borderline depression (3) Borderline personality disorder (4) Cholecystectomy (5) Esophageal dysphagia (6) post traumatic stress disorder (7) PTSD (post-traumatic stress disorder) (8) Raynaud's phenomenon (9) Scleroderma (10) Sjogren's (11) Stomach Problems Family History Alcoholism (father) CAD (brother) Depression (father, mother) Hyperlipidemia (brother) Hypertension (mother) Social History Smoking Status: Never Smoker Alcohol Use: none Drug Use: none Marital Status: in relationship Housing Status: lives alone Occupation Status: employed Current/Historical Medications Scheduled Cevimeline Hcl (Evoxac), 30 MG PO TID Cholecalciferol (Vitamin D3), 2,000 UNITS PO DAILY Clonazepam (Clonazepam), 0.5 MG PO QAM Clonazepam (Klonopin), 0.25 MG PO UD Gabapentin (Neurontin), 200 MG PO QAM Gabapentin (Neurontin), 300 MG PO HS Gabapentin (Neurontin), 100 MG PO DAILY@1200 Nifedipine Ext Rel (Procardia Xl Ext Rel), 30 MG PO DAILY Pantoprazole (Protonix), 40 MG PO BID Pramipexole Dihydrochloride (Mirapex), 1.5 MG PO DAILY Prazosin Hcl (Prazosin), 2 MG PO HS Sumatriptan Succinate (Imitrex), 100 MG PO PRN Vortioxetine HBr (Trintellix), 10 MG PO QAM Scheduled PRN Trazodone HCl (Trazodone HCl), 100 MG PO HS PRN for Sleep Allergies Coded Allergies: Aripiprazole (Verified Allergy, Severe, FACIAL SWELLING, 09/29/17) BEE STING (Verified Allergy, Severe, pt. gets extreme swelling at the site and beyond,rash, 09/29/17) pt. allergic to yellow jackets,wasps, hornets Prednisone (Verified Allergy, Severe, RASH, MIGRAINE HEADACHE, 09/29/17) Propranolol (Unverified Allergy, Intermediate, hives, 09/29/17) Doxycycline (Verified Adverse Reaction, Intermediate, vomiting, 09/29/17) Physical Exam Vital Signs Date Time Temp Pulse Resp B/P (MAP) Pulse Ox O2 Delivery O2 Flow Rate FiO2 09/29/17 16:02 71 14 122/83 99 Room Air 09/29/17 13:49 36.2 80 18 128/82 97 Room Air 09/29/17 12:40 36.5 92 18 145/101 98 Room Air Physical Exam GENERAL: Awake, alert, well appearing, no distress HENT: Normocephalic, atraumatic. TM's normal. Oropharynx unremarkable. EYES: PERRL. EOMI. Normal conjunctiva. Sclera non-icteric. NECK: Supple. No nuchal rigidity. FROM. No JVD or bruit. RESPIRATORY: CTA CARDIAC: RRR. No murmur. ABDOMEN: Soft, non distended. No tenderness to palpation. No rebound or guarding. No masses. MUSCULOSKELETAL: There is ecchymosis to the right medial knee. No edema. No discoloration. Gross motor strength symmetric. UPPER EXTREMITIES: There are multiple abrasions to the right volar aspect of the forearm no sings of infection. Same is present to the left dorsal forearm. NEURO: Cranial nerves 2-12 grossly intact. Normal sensorium. No sensory or motor deficits noted. Speech normal. No pronator drift. SKIN: No rash or jaundice noted. LYMPH: No adenopathy. PSYCH: depressed mood. positive suicidal ideation. negative homicidal ideation. Medical Decision & Procedures Laboratory Results 09/29/17 14:02 Red Blood Count 4.25, Mean Corpuscular Volume 90.8, Mean Corpuscular Hemoglobin 31.1, Mean Corpuscular Hemoglobin Concent 34.2, Mean Platelet Volume 9.6, Neutrophils (%) (Auto) 49.4, Lymphocytes (%) (Auto) 42.3, Monocytes (%) (Auto) 7.3, Eosinophils (%) (Auto) 0.2, Basophils (%) (Auto) 0.6, Neutrophils # (Auto) 2.35, Lymphocytes # (Auto) 2.02, Monocytes # (Auto) 0.35, Eosinophils # (Auto) 0.01, Basophils # (Auto) 0.03 09/29/17 14:02 Test 09/29/17 13:00 09/29/17 14:02 Urine Color YELLOW Urine Appearance CLEAR (CLEAR) Urine pH 6.5 (4.5-7.5) Urine Specific [place] 1.014 (1.000-1.030) Urine Protein NEG (NEG) Urine Glucose (UA) NEG (NEG) Urine Ketones NEG (NEG) Urine Occult Blood NEG (NEG) Urine Nitrite NEG (NEG) Urine Bilirubin NEG (NEG) Urine Urobilinogen NEG (NEG) Urine Leukocyte Esterase NEG (NEG) Urine Opiates Screen NEG (NEG) Urine Methadone, Qualitative NEG (NEG) Urine Barbiturates NEG (NEG) Urine Phencyclidine (PCP) Level NEG (NEG) Ur Amphetamine/Methamphetamine NEG (NEG) MDMA (Ecstasy) Screen NEG (NEG) Urine Benzodiazepines Screen NEG (NEG) Urine Cocaine Metabolite NEG (NEG) Urine Marijuana (THC) NEG (NEG) White Blood Count 4.77 K/uL (4.8-10.8) Red Blood Count 4.25 M/uL (4.2-5.4) Hemoglobin 13.2 g/dL (12.0-16.0) Hematocrit 38.6 % (37-47) Mean Corpuscular Volume 90.8 fL (80-100) Mean Corpuscular Hemoglobin 31.1 pg (25-34) Mean Corpuscular Hemoglobin Concent 34.2 g/dl (32-36) Platelet Count 227 K/uL (130-400) Mean Platelet Volume 9.6 fL (7.4-10.4) Neutrophils (%) (Auto) 49.4 % Lymphocytes (%) (Auto) 42.3 % Monocytes (%) (Auto) 7.3 % Eosinophils (%) (Auto) 0.2 % Basophils (%) (Auto) 0.6 % Neutrophils # (Auto) 2.35 K/uL (1.4-6.5) Lymphocytes # (Auto) 2.02 K/uL (1.2-3.4) Monocytes # (Auto) 0.35 K/uL (0.11-0.59) Eosinophils # (Auto) 0.01 K/uL (0-0.5) Basophils # (Auto) 0.03 K/uL (0-0.2) RDW Standard Deviation 42.4 fL (36.4-46.3) RDW Coefficient of Variation 12.9 % (11.5-14.5) Immature Granulocyte % (Auto) 0.2 % Immature Granulocyte # (Auto) 0.01 K/uL (0.00-0.02) Anion Gap 6.0 mmol/L (3-11) Est Creatinine Clear Calc Drug Dose 82.7 ml/min Estimated GFR () 113.8 Estimated GFR (Non- 98.2 BUN/Creatinine Ratio 20.6 (10-20) Calcium Level 8.9 mg/dl (8.5-10.1) Total Bilirubin 0.3 mg/dl (0.2-1) Direct Bilirubin < 0.1 mg/dl (0-0.2) Aspartate Amino Transf (AST/SGOT) 18 U/L (15-37) Alanine Aminotransferase (ALT/SGPT) 26 U/L (12-78) Alkaline Phosphatase 131 U/L (45-117) Total Protein 7.5 gm/dl (6.4-8.2) Albumin 3.5 gm/dl (3.4-5.0) Thyroid Stimulating Hormone (TSH) 1.070 uIu/ml (0.300-4.500) Ethyl Alcohol mg/dL < 3.0 mg/dl (0-3) Laboratory results reviewed by me ED Course 1325: The patient was evaluated in room A7. A complete history and physical exam was performed. 1501: The nursing staff has informed me that the patient is now being evaluated by [address] [place] [address]. 1655: [address] [place] [address] has accepted the patient for inpatient psychiatric treatment. Medical Decision Prior records/ancillary studies reviewed. Triage Nursing notes reviewed and agree them. The patient's history was concerning for possible psychiatric disturbance. Differential diagnosis: Etiologies such as mood disorder, infection, hypoglycemia, electrolyte abnormalities, cardiac sources, intracerebral event, toxicologic, neurologic, as well as others were entertained. Physical examination: The physical examination was performed as above and was completely benign. No emergent medical pathologies were noted. ER treatment provided: No medications given Basic wound care. On reassessment the patient felt better. Diagnostic interpretation by me: The labs revealed an unremarkable CBC and chemistry panel. Tox screen unremarkable. Imaging studies: Deferred Consultation: A consultation was placed with mental health. The patient was evaluated by mental health in the emergency department and they felt admission was warranted. The patient was voluntarily admitted for further treatment. Impression Primary Impression: Mood disorder Scribe Attestation The scribe's documentation has been prepared under my direction and personally reviewed by me in its entirety. I confirm that the note above accurately reflects all work, treatment, procedures, and medical decision making performed by me. Departure Information Dispostion [facility] ([address] [place] [address]) Referrals No Doctor, Assigned (PCP) Patient Instructions My [facility]
[2017-09-29] MEDS: PRAZOSIN HCL 1 MG CAP PO SCH (23:02)
[2017-09-29] MEDS: GABAPENTIN 300 MG CAP PO SCH (23:02)
[2017-09-29] MEDS: PANTOprazole SOD 40 MG TAB PO SCH (23:02)
[2017-09-30 06:53] VITALS: BP_SYST 116; BP_SYST 121; BP_DIAS 74; BP_DIAS 76; PULSE 101; PULSE 102; TEMP 36.6
[2017-09-30 06:55] VITALS: Ht 165.1 cm; Wt 67.0 kg
[2017-09-30] MEDS: ACETAMINOPHEN 325 MG TAB PO PRN ×2 (07:08→21:52)
[2017-09-30] MEDS: CLONAZEPAM 0.5 MG TAB PO SCH ×2 (09:49→17:20)
[2017-09-30] MEDS: CHOLECALCIFEROL 1000 INTER.UNIT TAB PO SCH (09:49)
[2017-09-30] MEDS: PRAMIPEXOLE DIHYDROCHLORIDE 0.5 MG TAB PO SCH (09:49)
[2017-09-30] MEDS: GABAPENTIN 100 MG CAP PO SCH ×2 (09:49→11:29)
[2017-09-30] MEDS: PANTOprazole SOD 40 MG TAB PO SCH ×2 (09:51→21:18)
[2017-09-30] MEDS: NIFEdipine 30 MG CR TAB PO SCH (09:52)
--- NOTE | 2017-09-30 10:08 | Psych Management Progress Note ---
Psychiatry Miscellaneous Date of Service: Sep 30, 2017. Patient seen, MS assessed. Patient appears very flat/depressed. I personally participated in treatment team, encouraged input from outpatient providers and participated in the medical decision making outlined by AMARI Pineda in the H&P. Encouraged cooperation with care and treatment plan as outlined by allied health prescriber.
[2017-09-30] MEDS ORDERED: CALC500C70 PO (11:03)
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
[2017-09-30] MEDS: GABAPENTIN 300 MG CAP PO SCH (21:18)
[2017-09-30] MEDS: PRAZOSIN HCL 1 MG CAP PO SCH (21:18)
[2017-09-30] MEDS: CEVIMELINE 30 MG CAP PO SCH (21:19)
[2017-10-01 06:51] VITALS: BP_SYST 108; BP_SYST 92; BP_DIAS 61; BP_DIAS 71; PULSE 69; PULSE 89; TEMP 36.5
[2017-10-01] MEDS ORDERED: TRINTELLIX 15 MG PO SCH (09:00)
[2017-10-01] MEDS: CALCIUM 600MG + VIT D 400 IU TAB PO SCH (09:13)
[2017-10-01] MEDS: CEVIMELINE 30 MG CAP PO SCH ×3 (09:15→21:41)
[2017-10-01] MEDS: CLONAZEPAM 0.5 MG TAB PO SCH ×2 (09:15→17:31)
[2017-10-01] MEDS: PRAMIPEXOLE DIHYDROCHLORIDE 0.5 MG TAB PO SCH (09:16)
[2017-10-01] MEDS: GABAPENTIN 100 MG CAP PO SCH ×2 (09:17→12:02)
[2017-10-01] MEDS: NIFEdipine 30 MG CR TAB PO SCH (09:18)
[2017-10-01] MEDS: PANTOprazole SOD 40 MG TAB PO SCH ×2 (09:19→21:41)
[2017-10-01] MEDS: VORTIOXETINE HBR 10 MG TAB PO SCH (09:19)
[2017-10-01] MEDS: CHOLECALCIFEROL 1000 INTER.UNIT TAB PO SCH (09:20)
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
[2017-10-01] MEDS: hydrOXYzine HCL 25 MG TAB PO PRN (20:00)
[2017-10-01] MEDS: PRAZOSIN HCL 1 MG CAP PO SCH (21:41)
[2017-10-01] MEDS: GABAPENTIN 300 MG CAP PO SCH (21:41)
[2017-10-02 06:44] VITALS: BP_SYST 101; BP_SYST 107; BP_DIAS 64; BP_DIAS 73; PULSE 84; PULSE 97; TEMP 36.6
[2017-10-02] MEDS: CALCIUM 600MG + VIT D 400 IU TAB PO SCH (09:42)
[2017-10-02] MEDS: PRAMIPEXOLE DIHYDROCHLORIDE 0.5 MG TAB PO SCH (09:43)
[2017-10-02] MEDS: CLONAZEPAM 0.5 MG TAB PO SCH ×2 (09:43→17:31)
[2017-10-02] MEDS: CEVIMELINE 30 MG CAP PO SCH ×3 (09:43→23:27)
[2017-10-02] MEDS: VORTIOXETINE HBR 10 MG TAB PO SCH (09:44)
[2017-10-02] MEDS: GABAPENTIN 100 MG CAP PO SCH ×2 (09:44→12:42)
[2017-10-02] MEDS: PANTOprazole SOD 40 MG TAB PO SCH ×2 (09:44→23:26)
[2017-10-02] MEDS: NIFEdipine 30 MG CR TAB PO SCH (09:44)
[2017-10-02] MEDS: CHOLECALCIFEROL 1000 INTER.UNIT TAB PO SCH (09:46)
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
--- NOTE | 2017-10-02 10:04 | Psych Management Progress Note ---
Psychiatry Miscellaneous Date of Service: Oct 02, 2017. Patient seen, MS assessed. Rates mood as "don't feel like being around people ", did not attend community meeting and is eating breakfast by herself but did engage in some discussion of shopping. Very flat affect. Encouraged cooperation with care and treatment plan as outlined by allied health prescriber.
[2017-10-02] MEDS: hydrOXYzine HCL 25 MG TAB PO PRN (19:23)
[2017-10-02] MEDS: PRAZOSIN HCL 1 MG CAP PO SCH (23:27)
[2017-10-02] MEDS: GABAPENTIN 400 MG CAP PO SCH (23:27)
[2017-10-03 06:47] VITALS: BP_SYST 95; BP_DIAS 63; BP_DIAS 64; PULSE 109; PULSE 89; TEMP 36.8
--- NOTE | 2017-10-03 08:22 | Psychiatric Progress Notes ---
Progress Note Date of Service Oct 03, 2017. Interval History Prema Hernandez is a 56-year-old female admitted voluntarily on Sep 29, 2017 at 16: 31 after presenting to the emergency department, at the recommendation of her outpatient therapist, due to suicidal ideation, self-injurious behaviors by cutting both wrists. Information is gathered from the patient and considered to be reliable. Chief Complaint "Better". Subjective Patient was seen & assessed interval progress reviewed with Treatment Team. Staff report she had a difficult day on 10/01/17, was sitting on the windowsill and banging her head on the window. Her dog visited her on the unit. She was initially agreeing to a referral to [facility] which was also recommended be her outpatient providers, but is now saying she is not sure she wants to go. She told staff yesterday that she was feeling better and hoping to go home soon. She has been reporting difficulty with being home alone during the week when her is out on the road, and has friends who have offered for her to come sleep at their house, but then hasn't followed through on that. Today she was retrieved from group, where she was sleeping in chair. She says she is "better," as anxiety is decreased. Mood is "ernestina flat," rates it a 3 out of 10 , improved from a 0 on admission. Sleep has been better, and appetite is "so-so , don't have much of an appetite." Suicidal thoughts "are at bay for the most part," she thinks due to "other things clicking better, then they're not so present." She is aware that her outpatient providers have recommended she return to [facility], "I know it would be beneficial, but nobody wants to pack up and go away for 3 weeks." She is willing to start the referral process here, but recognizes there may be a waiting list. She is planning to go to [place] with a friend in early Oct. She states she is not ready to leave yet, "my thoughts in my head are all still jumbled." She is worried about having side effects to medications, as her dose of Trintellix was recently increased. She is aware that she is almost out of Trintellix and that as it is nonformulary , she will need a friend to excelsior picker her prescription and bring it in, but she hasn't done this yet, saying she doesn't want to inconvenience her friends. Talks about "not having anything to take" for "really bad anxiety, I used to have Ativan, but he won't prescribe that for me, he's taken away the Klonopin... " Reinforced the need to avoid medications that are dangerous for her and focus on behavioral techniques, referral to [facility]. Sleep Information Total Hours of Sleep: 5.75 Meal Information Percent of Breakfast Consumed: 50 Percent of Lunch Consumed: 50 Percent of Dinner Consumed: 25 Mental Status Exam During interview pt is: alert and oriented, guarded Appearance: appropriately dressed, appropriately groomed Eye contact is: poor (stares at floor) Motor behavior is: no abnormal motor movements Speech: normal in rate, rhythm & volume (minimal speech) Affect: depressed, irritable, constricted Mood is: other ("a little better") Thought process: goal directed Thought content: reality based without delusions Suicidal thought are: denied Homicidal thoughts are: denied Hallucinations: denies auditory, denies visual Cognition: memory grossly intact, attention grossly intact, language grossly intact Intelligence estimated to be: average Insight: impaired Judgement: impaired Impression Remains depressed, anxious, and irritable, poorly engaged. Her gabapentin and Trintellix have both been increased. She has agreed to explore long-term hospitalization at [facility], where she has been in the past, and so we'll enlist social service assistance with this. She is aware she will be out of her Trintellix soon (today or tomorrow she thinks), but hasn't called a friend to arrange for someone to pick it up and bring in the new prescription. Plan (1) Major depressive disorder, recurrent severe without psychotic features 09/30 - Increase Trintellix to 15 mg daily. BF will bring in her bottle - Continue home doses of Klonopin, Neurontin, prazosin and trazodone - Assist the patient to reengage with healthy coping strategies and avoid isolating or engaging in self-injurious behaviors. - Every 15 minute checks for safety - Encourage participation in group and individual counseling - Patient agreeable to considering a hospitalization at [facility] which we will explore - Meeting with her friends with whom she may be able to spend nights during the week to make this arrangement more formal - Obtain records from an coordinate care with her current outpatient providers 10/01 - Continue medications as above. No issues reported with increase of Trintellix. - Continue to encourage engagement in group therapy and activities here on the unit. - Coordination of aftercare with friends and fiance/boyfriend - Continue to explore willingness for [facility] referral as she has benefited from this in the past. 10/02 - Increase Neurontin to 200-200-400 mg - Begin referral to [facility] at patient request - Continue other medications 10/03 - Continue increased doses of Trintellix and gabapentin. Will need to contact friend today to bring in new Rx of Trintellix as she is almost out and it is nonformulary. - Refer to [facility]. - Encourage group attendance and participation, work on healthy coping skills for anxiety. (2) Borderline personality disorder 09/30 - Provide consistent boundaries - Engage patient in an open-ended discussion as she will likely relate better to being involved in decision making rather than being told what to do (3) PTSD (post-traumatic stress disorder) 09/30 - The patient has trauma associated with sleep time - Provide the patient and a safety measures needed such as lighting, open door, etc. Discharge / Aftercare Planning Primary Care Physician: Name: Dr Burnett Psychiatrist: Name: Dr Smith Therapist: Name: Beulah De Souza Date of Appointment: Oct 04, 2017 Pantograph Machine Set Up Operator: Name: Jeannine Painting Date of Appointment: Oct 03, 2017 Partial or Psych Rehab: Name: [facility] Re[facility] Other: Name of Appointment #1: [facility] Medication Management Visit Code E&M Code: 13951 Inventory Assets Strengths: Long-term relationship with boyfriend, consistent housing, good relationship with outpatient providers Needs: To be able to use healthy coping strategies Risk Factors Assessment : Yes /single/: No Higher / Fall in social status: No Access to guns: No Health problems: Yes Mental Health Diagnoses: Yes Substance use disorders: No Previous attempt: Yes Family history of suicide: No Previous psychiatric stay: Yes Hopelessness: Yes Smoker: No Protective Factors Assessment Samaritan beliefs: Yes : No Responsible for young children: No Employed: Yes Stable relationships: Yes Supportive family: Yes Good rapport with provider: Yes Data Vital Signs Last 24 Hrs: Date Time Temp Pulse Resp B/P (MAP) Pulse Ox O2 Delivery O2 Flow Rate FiO2 10/03/17 06:47 36.8 89 16 95/63 109 95/64 Meds Administered Last 24 Hrs: Meds Administered (Past 24Hrs) Medications (Trade) Dose Ordered Sig/Horacio Route Start Time Stop Time Status Last Admin Dose Admin Calcium/Vitamin D (Caltrate Plus Tab) 1 tab DAILY PO 10/01/17 09:00 10/31/17 08:59 10/02/17 09:42 1 TAB Vortioxetine (Trintellix) 15 mg QAM PO 10/01/17 09:00 10/31/17 08:59 10/02/17 09:44 15 MG Gabapentin (Neurontin Cap) 200 mg BID@0900,1200 PO 10/02/17 12:00 11/01/17 11:59 10/02/17 12:42 200 MG Gabapentin (Neurontin Cap) 400 mg HS PO 10/02/17 22:00 11/01/17 21:59 10/02/17 23:27 400 MG
[2017-10-03] MEDS: CLONAZEPAM 0.5 MG TAB PO SCH ×2 (08:44→17:23)
[2017-10-03] MEDS: CALCIUM 600MG + VIT D 400 IU TAB PO SCH ×2 (08:45→21:20)
[2017-10-03] MEDS: CEVIMELINE 30 MG CAP PO SCH ×3 (08:45→21:20)
[2017-10-03] MEDS: GABAPENTIN 100 MG CAP PO SCH ×2 (08:46→12:02)
[2017-10-03] MEDS: PRAMIPEXOLE DIHYDROCHLORIDE 0.5 MG TAB PO SCH (08:46)
[2017-10-03] MEDS: PANTOprazole SOD 40 MG TAB PO SCH ×2 (08:47→17:23)
[2017-10-03] MEDS: NIFEdipine 30 MG CR TAB PO SCH (08:47)
[2017-10-03] MEDS: VORTIOXETINE HBR 10 MG TAB PO SCH (08:48)
[2017-10-03] MEDS: CHOLECALCIFEROL 1000 INTER.UNIT TAB PO SCH (08:48)
[2017-10-03 08:59] VITALS: BP 105/71; PULSE 108
[2017-10-03] MEDS: GABAPENTIN 400 MG CAP PO SCH (21:19)
[2017-10-03] MEDS: PRAZOSIN HCL 1 MG CAP PO SCH (21:20)
[2017-10-04 06:45] VITALS: BP_SYST 104; BP_SYST 93; BP_DIAS 61; BP_DIAS 69; PULSE 74; PULSE 96; TEMP 36.7
[2017-10-04] MEDS: CEVIMELINE 30 MG CAP PO SCH ×3 (08:53→22:08)
[2017-10-04] MEDS: GABAPENTIN 100 MG CAP PO SCH ×2 (08:54→12:55)
[2017-10-04] MEDS: PRAMIPEXOLE DIHYDROCHLORIDE 0.5 MG TAB PO SCH (08:54)
[2017-10-04] MEDS: NIFEdipine 30 MG CR TAB PO SCH (08:54)
[2017-10-04] MEDS: CHOLECALCIFEROL 1000 INTER.UNIT TAB PO SCH (08:55)
[2017-10-04] MEDS: PANTOprazole SOD 40 MG TAB PO SCH ×2 (08:55→16:42)
[2017-10-04] MEDS: VORTIOXETINE HBR 10 MG TAB PO SCH (08:56)
[2017-10-04] MEDS: CLONAZEPAM 0.5 MG TAB PO SCH ×2 (08:57→16:41)
[2017-10-04 09:09] VITALS: BP 100/69; PULSE 99
--- NOTE | 2017-10-04 10:02 | Psychiatric Progress Notes ---
Progress Note Date of Service Oct 04, 2017. Interval History Prema Hernandez is a 56-year-old female admitted voluntarily on Sep 29, 2017 at 16: 31 after presenting to the emergency department, at the recommendation of her outpatient therapist, due to suicidal ideation, self-injurious behaviors by cutting both wrists. Information is gathered from the patient and considered to be reliable. Chief Complaint "I'm alright". Subjective Patient was seen & assessed interval progress reviewed with Nursing. Staff reports patient had a meeting with her rifle case repairer last evening. Pt has a friend who will be dropping off her prescription for Trintellix as it is non- formulary. Reported 3-week wait for admission to [facility] which patient is agreeable to. Pt was seen today to assess progress since admission. She reports she is doing better and states she has not been having urges to harm herself. Pt states her thoughts are more clear and she has not had SI in several days. Pt states mood is a 6/10 (10=best) and she rates anxiety at a 5/ 10 (10=worst). Pt states, "I still have a lot of anxiety, but it's not the same kind I came in with". Pt reports feeling overwhelmed about rescheduling doctors appointments and about her 3-week wait for long-term treatment at [facility]. Pt has been tolerating increases to gabapentin and Trintellix well. She states she is closer to feeling ready for discharge. Pt denies SI/ HI at this encounter. Review of Systems Psych: denies symptoms other than stated above Constitutional: denied Cardiovascular: denied GI: mild nausea, improved from previous encounters Neurologic: denied Remainder of 10 body systems also reviewed and denied other than noted above. Sleep Information Total Hours of Sleep: 6.00 Meal Information Percent of Breakfast Consumed: 100 Percent of Lunch Consumed: 5 Percent of Dinner Consumed: 100 Mental Status Exam During interview pt is: alert and oriented, cooperative Appearance: appropriately dressed, appropriately groomed (recently showered) Eye contact is: poor (staring at floor) Motor behavior is: steady gait & station, psychomotor agitation (leg shaking) Speech: normal in rate, rhythm & volume (minimal speech) Affect: depressed, constricted Mood is: other ("Alright") Thought process: goal directed, clear, coherent Thought content: reality based without delusions Suicidal thought are: denied Homicidal thoughts are: denied Hallucinations: denies auditory, denies visual Cognition: memory grossly intact, attention grossly intact, language grossly intact Intelligence estimated to be: average Insight: fair Judgement: fair Impression Pt continues to appear depressed and anxious. Staff reports ongoing irritability. Pt denies side effects of increased dosages of gabapentin and Trintellix. Informed of 3-week wait for admission to [facility]. She plans to stay at home or with friends as needed until she is able to go to long- term treatment. Friend will be bringing her prescription of Trintellix this evening. Plan (1) Major depressive disorder, recurrent severe without psychotic features 09/30 - Increase Trintellix to 15 mg daily. BF will bring in her bottle - Continue home doses of Klonopin, Neurontin, prazosin and trazodone - Assist the patient to reengage with healthy coping strategies and avoid isolating or engaging in self-injurious behaviors. - Every 15 minute checks for safety - Encourage participation in group and individual counseling - Patient agreeable to considering a hospitalization at [facility] which we will explore - Meeting with her friends with whom she may be able to spend nights during the week to make this arrangement more formal - Obtain records from an coordinate care with her current outpatient providers 10/01 - Continue medications as above. No issues reported with increase of Trintellix. - Continue to encourage engagement in group therapy and activities here on the unit. - Coordination of aftercare with friends and fiance/boyfriend - Continue to explore willingness for [facility] referral as she has benefited from this in the past. 10/02 - Increase Neurontin to 200-200-400 mg - Begin referral to [facility] at patient request - Continue other medications 10/03 - Continue increased doses of Trintellix and gabapentin. Will need to contact friend today to bring in new Rx of Trintellix as she is almost out and it is nonformulary. - Refer to [facility]. - Encourage group attendance and participation, work on healthy coping skills for anxiety. 10/04 - Continue medications as above. Trintellix to be brought in by friend this evening. - Requests prescription of Vistaril for anxiety upon discharge. - 3-week wait for admission to [facility]. - Continue to encourage group participation. (2) Borderline personality disorder 09/30 - Provide consistent boundaries - Engage patient in an open-ended discussion as she will likely relate better to being involved in decision making rather than being told what to do (3) PTSD (post-traumatic stress disorder) 09/30 - The patient has trauma associated with sleep time - Provide the patient and a safety measures needed such as lighting, open door, etc. Discharge / Aftercare Planning Primary Care Physician: Name: Dr Burnett Date of Appointment: Oct 10, 2017 Time of Appointment: 11:05 am Appointment Notes: [facility] [id number] Psychiatrist: Name: Dr Smith Date of Appointment: Oct 12, 2017 Time of Appointment: 8:00 am Appointment Notes: [address] [address] Therapist: Name: Beulah De Souza [facility] Date of Appointment: Oct 06, 2017 Time of Appointment: 10 a.m. Appointment Notes: [address] [place] [id number] African History Professor: Name: Jeannine Painting Date of Appointment: Oct 03, 2017 Partial or Psych Rehab: Name: [facility] Date of Appointment: Oct 05, 2017 Time of Appointment: 8:30 a.m. Other: Name of Appointment #1: [facility] Medication Management Visit Code E&M Code: 20616 Inventory Assets Strengths: Long-term relationship with boyfriend, consistent housing, good relationship with outpatient providers Needs: To be able to use healthy coping strategies Risk Factors Assessment : Yes /single/: No Higher / Fall in social status: No Access to guns: No Health problems: Yes Mental Health Diagnoses: Yes Substance use disorders: No Previous attempt: Yes Family history of suicide: No Previous psychiatric stay: Yes Hopelessness: Yes Smoker: No Protective Factors Assessment Scientologist beliefs: Yes : No Responsible for young children: No Employed: Yes Stable relationships: Yes Supportive family: Yes Good rapport with provider: Yes Data Vital Signs Last 24 Hrs: Date Time Temp Pulse Resp B/P (MAP) Pulse Ox O2 Delivery O2 Flow Rate FiO2 10/04/17 09:09 99 100/69 10/04/17 06:45 36.7 74 16 104/69 96 93/61 Meds Administered Last 24 Hrs: Meds Administered (Past 24Hrs) Medications (Trade) Dose Ordered Sig/Horacio Route Start Time Stop Time Status Last Admin Dose Admin Gabapentin (Neurontin Cap) 200 mg BID@0900,1200 PO 10/02/17 12:00 11/01/17 11:59 10/04/17 08:54 200 MG Gabapentin (Neurontin Cap) 400 mg HS PO 10/02/17 22:00 11/01/17 21:59 10/03/17 21:19 400 MG Pantoprazole Sodium (Protonix Tab) 40 mg BID17 PO 10/03/17 09:00 10/29/17 20:59 10/04/17 08:55 40 MG
--- NOTE | 2017-10-04 15:03 | Psych Management Progress Note ---
Psychiatry Miscellaneous Date of Service: Oct 04, 2017. Pt requested additional meeting with this provider to discuss prescription Vistaril at discharge along with work release until she is admitted to care at [facility]. Pt informed this provider that she has been tapering her Klonopin under the direction of her outpatient provider. She states she was initially taking 0.5mg TID and is now to 0.5mg qAM and 0.25mg in the evening. Pt reports at her next outpatient appointment, the evening dose will be discontinued. Therefore, she requests prescription of Vistaril at discharge as she is concerned about anxiety and panic attacks. Pt states she has found Vistaril helpful here on the unit and is requesting it to supplement the Klonopin taper. Pt also requests a work release as she has a 3-week wait before admission to [facility]. 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 She reports working 2 days a week for a total of 12 hours. Pt states she is typically scheduled for more hours than she requests. Pt is concerned about work stress in addition to making preparations for her anticipated long-term admission. She also reports a plan to travel with a friend to [place] next week which will excuse her from work for 2 days. Pt gives consent to speak to her outpatient provider, who she states has provided work releases in the past due to increased stress with her job. Pt was informed that the topic would need to be discussed at treatment team in the morning to determine if the release was appropriate. Pt was satisfied with this answer and voiced understanding.
[2017-10-04] MEDS: hydrOXYzine HCL 25 MG TAB PO PRN (20:33)
[2017-10-04] MEDS: ACETAMINOPHEN 325 MG TAB PO PRN (20:35)
[2017-10-04] MEDS: GABAPENTIN 400 MG CAP PO SCH (22:09)
[2017-10-04] MEDS: PRAZOSIN HCL 1 MG CAP PO SCH (22:09)
[2017-10-05 07:01] VITALS: BP_SYST 83; BP_SYST 99; BP_DIAS 53; BP_DIAS 66; PULSE 62; PULSE 79; TEMP 36.8
[2017-10-05] MEDS: CALCIUM 600MG + VIT D 400 IU TAB PO SCH (09:04)
[2017-10-05 09:05] VITALS: BP 106/67; PULSE 87
[2017-10-05] MEDS: CLONAZEPAM 0.5 MG TAB PO SCH (09:05)
[2017-10-05] MEDS: CEVIMELINE 30 MG CAP PO SCH (09:05)
[2017-10-05] MEDS: GABAPENTIN 100 MG CAP PO SCH (09:06)
[2017-10-05] MEDS: PRAMIPEXOLE DIHYDROCHLORIDE 0.5 MG TAB PO SCH (09:06)
[2017-10-05] MEDS: PANTOprazole SOD 40 MG TAB PO SCH (09:07)
[2017-10-05] MEDS: VORTIOXETINE HBR 10 MG TAB PO SCH (09:08)
[2017-10-05] MEDS: CHOLECALCIFEROL 1000 INTER.UNIT TAB PO SCH (09:10)
[2017-10-05] MEDS: NIFEdipine 30 MG CR TAB PO SCH (09:16)
[2017-10-05] MEDS ORDERED: VORT1TAB3 PO (09:54)
[2017-10-05] MEDS ORDERED: GABA400C PO (09:54)
[2017-10-05] MEDS ORDERED: GABA-112 PO (09:54)
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
== END 2017-10-05 11:20 | disposition home or self-care (01) | DRG 885 ==
LOC: C.EDB 12:38 → C.MHU 16:31
PROVIDERS: ADMIT Psychiatry & Neurology Child & Adolescent Psychiatry; ATTEND Psychiatry & Neurology Child & Adolescent Psychiatry
DX: F33.2 Major depressive disorder, recurrent severe without psychotic features (principal); R45.851 Suicidal ideations; F43.10 Post-traumatic stress disorder, unspecified; F60.3 Borderline personality disorder; F41.0 Panic disorder [episodic paroxysmal anxiety]; Z91.5 Personal history of self-harm; Z62.819 Personal history of unspecified abuse in childhood; Z81.8 Family history of other mental and behavioral disorders; Z81.1 Family history of alcohol abuse and dependence; Z79.899 Other long term (current) drug therapy; Z88.1 Allergy status to other antibiotic agents; Z88.5 Allergy status to narcotic agent; Z91.030 Bee allergy status

== ENCOUNTER → 2017-10-27 | Outpatient (CLI) | payer OTHER, MEDICARE ==
[~2017-10-27] MED LIST changes: -ARIP2TAB3 PO; +BACITRACIN 50000 UNIT VIAL ONE; -BIOT1CAP3; +CALC500C70 PO; +CLON0.5T3 PO; -GABA-113 PO; +GABA400C PO; +NIFE30TA83 PO; +ORTHO JOINT ANESTHETIC ONE; -VENL75CA PO; +VORT1TAB3 PO
== END | disposition home or self-care (01) ==
LOC: C.CPL 11:20
DX: S83.241A Other tear of medial meniscus, current injury, right knee, initial encounter (principal); X58.XXXA Exposure to other specified factors, initial encounter

== ENCOUNTER 2018-04-05 00:07 | Emergency (ER) | payer OTHER, MEDICARE ==
[~2018-04-05] VITALS: Ht 165.1 cm; Wt 68.2 kg
[~2018-04-05 00:07] MED LIST changes: -BACITRACIN 50000 UNIT VIAL ONE; -CLON0.5T3 PO; +CLON0.5T9 PO; -ORTHO JOINT ANESTHETIC ONE
[2018-04-05 00:10] VITALS: TEMP 36.6; Ht 165.1 cm; Wt 68.2 kg
[2018-04-05] MEDS ORDERED: DiphenhydrAMINE HCL 50 MG/ML VIAL IM STA (00:22)
--- NOTE | 2018-04-05 00:25 | EMERGENCY ROOM VISIT NOTE ---
History Report prepared by Romario: Chastity Saldivar Under the Supervision of: Dr. Micah Dimas M.D. First contact with patient: 00:14 Chief Complaint: ALLERGIC REACTION Stated Complaint: BEE STING History of Present Illness The patient is a 57 year old female who presents to the Emergency Room with complaints of a persistent allergic reaction that started 30 minutes prior to arrival. The patient rates her pain an 8/10 in severity. The patient reports she was on her porch and was stung by yellow jackets about 5 times. She notes she used her epi pen twice but is unsure if she used it correctly. She states the pen was new. She denies shortness of breath, trouble swallowing, abdominal pain, and loss or bowel or bladder control. She notes she has a history of an allergic reaction to bees and has not had shortness of breath in the past. She has not taken Benadryl. Source of History: patient Onset: 30 minutes prior to arrival Symptom Intensity: 8/10 Timing: other (persistent) Associated Symptoms: No SOB, No abdominal pain, No urinary symptoms Review of Systems See HPI for pertinent positives & negatives. A total of 10 systems reviewed and were otherwise negative. Past Medical & Surgical Medical Problems: (1) Bipolar disorder (2) Borderline depression (3) Borderline personality disorder (4) Cholecystectomy (5) Esophageal dysphagia (6) post traumatic stress disorder (7) PTSD (post-traumatic stress disorder) (8) Raynaud's phenomenon (9) Scleroderma (10) Sjogren's (11) Stomach Problems Family History Alcoholism (father) CAD (brother) Depression (father, mother) Hyperlipidemia (brother) Hypertension (mother) Social History Smoking Status: Never Smoker Alcohol Use: none Drug Use: none Marital Status: in relationship Housing Status: lives alone Occupation Status: employed Current/Historical Medications Scheduled Calcium/Vitamin D (Os-David 500 Plus D), 1 TAB PO DAILY Cevimeline Hcl (Cevimeline Hcl), 30 MG PO TID Cholecalciferol (Vitamin D3), 2,000 UNITS PO DAILY Gabapentin (Gabapentin), 200 MG PO BID Gabapentin (Neurontin), 400 MG PO HS Paliperidone (Invega), 3 MG PO DAILY Paliperidone (Paliperidone ER), 3 MG PO QAM Pantoprazole (Protonix), 40 MG PO BIDM Pramipexole Dihydrochloride (Mirapex), 1.5 MG PO DAILY Prazosin Hcl (Prazosin), 5 MG PO HS Sertraline HCl (Sertraline HCl), 100 MG PO BID Sumatriptan Succinate (Imitrex), 100 MG PO PRN Trazodone HCl (Trazodone HCl), 100 MG PO HS Scheduled PRN Epinephrine (Epinephrine), 1 DOSE INJ UD PRN for Allergic Reaction Epinephrine (Epipen 2-Holland), 1 PKT IM DIRECTED PRN for Allergic Reaction Allergies Coded Allergies: Aripiprazole (Verified Allergy, Severe, FACIAL SWELLING, 04/05/18) BEE STING (Verified Allergy, Severe, pt. gets extreme swelling at the site and beyond,rash, 04/05/18) pt. allergic to yellow jackets,wasps, hornets Prednisone (Verified Allergy, Severe, RASH, MIGRAINE HEADACHE, 04/05/18) Propranolol (Unverified Allergy, Intermediate, hives, 04/05/18) Doxycycline (Verified Adverse Reaction, Intermediate, vomiting, 04/05/18) Physical Exam Vital Signs Date Time Temp Pulse Resp B/P (MAP) Pulse Ox O2 Delivery O2 Flow Rate FiO2 04/05/18 02:35 72 16 117/71 96 04/05/18 01:30 73 16 101/62 98 Room Air 04/05/18 00:25 98 Room Air 04/05/18 00:10 36.6 86 18 134/55 97 Room Air Physical Exam GENERAL: Patient is well appearing and in no acute distress. EYES: No scleral icterus, unremarkable pupils. ENT: Mucous membranes moist, no nasal congestion. NECK: No masses appreciated, no meningismus, trachea is midline. RESPIRATORY: No dyspnea. Clear to auscultation and equal bilaterally. No wheeze , no rhonchi. CARDIOVASCULAR: Regular rate and rhythm. No murmurs, rubs, gallops appreciated. GASTROINTESTINAL: Abdomen soft, nontender, no peritonitis. Bowel sounds positive. No masses appreciated. BACK: No midline tenderness, no CVA tenderness EXTREMITIES: Normal motion all extremities, no cyanosis, no edema. NEUROLOGIC: Alert and oriented, no acute motor or sensory deficits, no focal weakness, cranial nerves grossly intact. SKIN: No rash, no jaundice, no diaphoresis. Multiple welts over neck, arms, and abdomen. Medical Decision & Procedures ER Provider Diagnostic Interpretation: Radiology results stated below per my interpretation: 3 VIEW SECOND DIGIT X-RAY: No fracture, no dislocation, mild arthritic changes. Medications Administered Medications (Trade) Dose Ordered Sig/Horacio Route Start Time Stop Time Status Last Admin Dose Admin Diphenhydramine HCl (Benadryl Inj) 50 mg NOW STAT IM 04/05/18 00:22 04/05/18 00:23 DC 04/05/18 00:30 50 MG Ranitidine HCl (zANTac TAB) 150 mg NOW ONCE PO 04/05/18 00:30 04/05/18 00:31 DC 04/05/18 00:31 150 MG Acetaminophen (Tylenol Tab) 1,000 mg NOW STAT PO 04/05/18 01:53 04/05/18 01:54 DC 04/05/18 02:01 1,000 MG Epinephrine (Epipen) 0.3 mg STK-MED ONCE .ROUTE 04/05/18 02:32 04/05/18 02:33 DC 04/05/18 02:35 0.3 MG ED Course 0014: The patient was evaluated in room B8. A complete history and physical exam was performed. 0450: I rechecked the patient and she has no further reaction. She states her second toe on right foot is hurting. She thinks she stubbed it when running form bees and asked if she could get an xray and medication for pain. 0228: The patient states she has a doctors appointment in the morning and I advised her to keep it. I discussed results and discharge instructions with her : She verbalized understanding and agreement. The patient is ready for discharge. Medical Decision Differential: Allergic Reaction, Urticaria, Anaphylaxis, Cm-Eugenio Syndrome, Toxic Epidermal Necrolysis, Erythema Multiforme, Cellulitis, amongst other etiologies entertained. 57 yr old female arrives following multiple bee stings. 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 Unclear though doesn't sound like she was having fulminant anaphylaxis at that time. She was given benadryl and zantac here. She declined steroids given previous side effects. She looks well for several hours post stings. No fracture to toe she stubbed while running from bees. Will give EpiPen to go as she just used her only ones and written Rx for new pack. She will be seen by her PCP in 8 hours as it is for regular follow up. We discussed possibility of delayed anaphylaxis and she will be going home with family. Reviewed symptoms requiring RTED/911. Medication Reconcilliation Current Medication List: was personally reviewed by me Blood Pressure Screening Patient's blood pressure: Normal blood pressure Impression Primary Impression: Allergic reaction Additional Impressions: Bee sting reaction Contusion of toe of right foot Scribe Attestation The scribe's documentation has been prepared under my direction and personally reviewed by me in its entirety. I confirm that the note above accurately reflects all work, treatment, procedures, and medical decision making performed by me. Departure Information Dispostion Home / Self-Care Prescriptions Epinephrine (EPIPEN 2-HOLLAND) 0.3 Mg Inj 1 PKT IM DIRECTED Y for Allergic Reaction, #1 PKT Prov: Micah Dimas M.D. 04/05/18 Referrals Abner Burnett M.D. (PCP) Patient Instructions ED Bite Sting Insect Gen Allergic React, My [facility] Health Problem Qualifiers
[2018-04-05] MEDS ORDERED: RANITIDINE HCL 150 MG TAB PO ONE (00:30)
[2018-04-05] MEDS ORDERED: PRAZ5CAP2 PO (01:51)
[2018-04-05] MEDS ORDERED: EPIN0.3I14 INJ (01:52)
[2018-04-05] MEDS ORDERED: ZLF/100 PO (01:52)
[2018-04-05] MEDS ORDERED: ACETAMINOPHEN 500 MG TAB PO STA (01:53)
[2018-04-05] MEDS ORDERED: GABA-112 PO (01:54)
[2018-04-05] MEDS ORDERED: PALI1.5T PO (01:54)
[2018-04-05] MEDS ORDERED: NRN100 PO (01:54)
[2018-04-05] MEDS ORDERED: PALI1TAB2 PO (01:55)
[2018-04-05] MEDS ORDERED: DSY100 PO (01:56)
[2018-04-05] MEDS ORDERED: CEVI1CAP PO (01:59)
[2018-04-05] MEDS ORDERED: EPP3/2 IM (02:24)
[2018-04-05] MEDS ORDERED: EPINEPHRINE ADULT AUTO-INJECT 0.3 MG SYR ONE (02:32)
[2018-04-05 02:35] VITALS: BP 117/71; PULSE 72; O2SAT 96
--- NOTE | 2018-04-05 07:10 | DIAGNOSTIC IMAGING REPORT ---
RIGHT SECOND TOE 3 VIEWS CLINICAL HISTORY: Second toe injury. FINDINGS: 3 views of the right second toe are correlated with right foot radiographs dated 03/22/2016. The skeletal structures are well mineralized. No fracture is seen. The second metatarsophalangeal and interphalangeal joints appear maintained. The overlying soft tissues are normal as imaged. IMPRESSION: No acute osseous abnormality is identified. Electronically signed by: Js Yoder M.D. 04/05/2018 7:09 AM Dictated Date/Time: 04/05/2018 7:07 AM
== END 2018-04-05 02:35 | disposition home or self-care (01) ==
LOC: C.EDB 00:08
DX: T63.441A Toxic effect of venom of bees, accidental (unintentional), initial encounter (principal); S90.121A Contusion of right lesser toe(s) without damage to nail, initial encounter; W22.8XXA Striking against or struck by other objects, initial encounter; Y93.02 Activity, running; M35.00 Sjogren syndrome, unspecified; F43.10 Post-traumatic stress disorder, unspecified; Z88.8 Allergy status to other drugs, medicaments and biological substances; Z91.030 Bee allergy status; Z88.1 Allergy status to other antibiotic agents

== ENCOUNTER 2021-12-04 12:31 | Inpatient (IN) ==
[2021-12-04] MEDS ORDERED: DIPHTHERIA/TETANUS/PERTUSSIS 0.5 ML SYR/VIAL IM ONE (12:38)
[2021-12-04] MEDS ORDERED: LORazepam 2 MG/1 ML VIAL IV STA (12:38)
--- NOTE | 2021-12-04 12:46 | Emergency Department Note ---
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 Patient with no recollection injury and it is unc lear what exactly happened but she does have an abrasion, large hematoma and a laceration of the right forehead. Patient is severely anxious on arrival requiring IV Ativan to calm down which worked well. She had a CT of her head and neck which is negative for acute findings. She had a chest x-ray which is negative. X-rays of her wrist have what looks like old injuries and no clear evidence of new fracture and on repeat evaluations these do not seem to be bothering her. EKG is unremarkable. Initial labs are unremarkable. There is no evidence of dissection/PE and she is in no respiratory distress I do not think CTA of the chest is indicated at this time. Patient has no strokelike findings on examination at this time. And continues to have no memory of what happened and continuously is reasking the same questions. She is still quite amnestic as well as has no idea whether she had a syncope or fall or trauma. Given this I feel she will require further monitoring overnight and hospitalist was consulted for further management. Prior Medical Record and Triage/Nursing Notes reviewed by Me Additional history obtained from chart, ems Differentials:Fracture, dislocation, contusion, intra-abdominal, pneumothorax, intrathoracic, intracranial, neurologic, compartment syndrome, rhabdomyolysis, as well as other pathologies. Vital Signs: reviewed and remarkable for no significant abnormalities Interventions: adacel IM, Dermabond, ativan IV Labs:Reviewed and remarkable for no significant abnormalities Imaging:CT head and neck as per radiologist no acute findings, chest x-ray no acute findings as per radiologist, right wrist x-ray with chronic ulnar styloid displacement and distal radius lucency without clear evidence of acute fracture. EKG:Per My Interpretation: Indication Syncope/ams: NSR 75 bpm, qtc 426. No Ectopy. No Ischemia. Compared to EKG 12/09/19, no significant changes. Cardiac/Tele Monitoring: Cardiac Monitoring: An Order was placed for continuous cardiac monitoring. The monitor shows a rate of 75 with a normal sinus rhythm. Consults:Dr David Diallo Hospitalist Plan: Disposition:Hospitalization. Condition: Good History of Present Illness:61-year-old female arrives for evaluation following head injury. Patient was with friends this morning and was going outside to get a hammer. Friends heard a commotion and some screaming and patient came into the house with blood on her head and hands. Patient has no memory of what happened. She is complaining of a headache. She is having worsening anxiety. She has inability to remember what happened nor current events. Per EMS she was initially calm but has gradually worsened in her anxiety. Patient does not recall hitting her head denies any falls that she knows of. She is unsure when her last tetanus was. She had no medications prior to arrival. Patient denies any drug or alcohol use. Patient is on no blood thinners. She has had no previous head surgery. Occasions prior to arrival. ROS: See above HPI for pertinent positives & negatives. A total of 10 systems reviewed and were otherwise negative. Past Medical History:See Below Past Surgical History:See Below Family History:See Below Social History:See Below Home Medications:See Below Allergies:See Below Vitals:Blood Pressure: 104/64, Pulse 72, RR 18, T 36.9C, O2 98% on RA Physical Exam: GENERAL: Patient is severely anxious appearing and in moderate distress. HEAD: Large hematoma right forehead with 1 cm vertical laceration EYES: No scleral icterus, unremarkable pupils. ENT: Mucous membranes moist, no nasal congestion. NECK: No masses appreciated, nomeningismus, trachea is midline. RESPIRATORY: No dyspnea. Clear to auscultation and equal bilaterally. No wheeze, no rhonchi. CARDIOVASCULAR: Regular rate and rhythm.No murmurs, rubs, gallops appreciated. GASTROINTESTINAL: Abdomen soft, non-tender, no peritonitis.Bowel sounds positive.No masses appreciated. BACK: No midline tenderness, no CVA tenderness EXTREMITIES: Normal motion all extremities, no cyanosis, no edema. NEUROLOGIC: Repetitive questioning, Alert and oriented, no acute motor or sensory deficits, no focal weakness, cranial nerves grossly intact. SKIN: No rash, no jaundice, no diaphoresis. PSYCH: Very anxious GCS: 15 ED Course: Times/Reassessments: Patient rapidly improved with IV Ativan continually not remembering what happened. She is in no distress but is unable to remember what has been going on and continues to have amnesia. Procedures: Laceration Repair: Location: right forehead Complexity: Simple Length: 1 cm Verbal consent was obtained after the risks and benefits were explained, including but not limited to bleeding, scarring, infection, pain, and bone/joint/nerve damage. At this time, the risks of the procedure are less than the risks of NOT performing the procedure. A time out was taken and the correct patient and site identified. The skin was prepped with saline. Debridement was not performed. The wound edges were approximated using dermabond. Hemostasis and excellent approximation was achieved. Micah Dimas MD Past Med/Surg History Medical History (Updated 12/04/21 @ 16:38 by Micah Dimas MD) Anxiety Attention deficit disorder (ADD) Bipolar disorder Borderline personality disorder Cardiac murmur Chronic back pain Congenital malrotation of intestine Esophageal dysmotility GERD (gastroesophageal reflux disease) History of hypotension Major depression Migraine Mood disorder Osteopenia Post traumatic stress disorder Raynaud disease Scleroderma Self-mutilation Sjogrens syndrome Temporomandibular joint disorder Surgical History History of anesthesia reaction SLOW TO WAKE History of cataract surgery History of cholecystectomy History of colonoscopy History of esophagogastroduodenoscopy (EGD) History of right heart catheterization [facility] - 1999 - CHECK RESP STATUS R/T SCLERODERMA - REPORTS WNL History of surgery LEFT INDEX FINGER History of thumb surgery LEFT History of tooth extraction Status post dilation of esophageal narrowing Status post trigger finger release Family History Mother Family history of reaction to anesthesia SLOW TO WAKE Other Family history unremarkable Social History Smoking Status: Never smoker Second Hand Exposure: No; Hx Alcohol Use: Yes Alcohol type: beer Hx Substance Use: No Preferred Language: Icelandic Communication Ability: Effective Visual Impairment: Limited Hearing Ability: Normal Hydraulic Operator Required: No Beliefs That Will Affect Care: None marital status: Single Current Living Situation: Parent current occupational status: employed 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 gets Verified 12/04/21 16:39 extreme swelling at the site and beyond,rash prednisone Allergy Severe RASH, Verified 12/04/21 16:39 MIGRAINE HEADACHE paliperidone [From Invega] Allergy Intermediate HIVES, Verified 12/04/21 16:39 SWELLING propranolol Allergy Intermediate hives Verified 12/04/21 16:39 doxycycline AdvReac Intermediate vomiting Verified 12/04/21 16:39 carbamazepine [From Tegretol] AdvReac Unknown Rash Verified 12/04/21 16:39 Home Meds Home Medications Medication Instructions Recorded Confirmed cevimeline 30 mg capsule 30 mg PO TID 06/08/18 12/04/21 cholecalciferol (vitamin D3) 25 2,000 unit PO QAM 06/08/18 12/04/21 mcg (1,000 unit) capsule (Vitamin D3) epinephrine 0.3 mg/0.3 mL 0.3 mg IM UD PRN 06/08/18 12/04/21 injection, auto-injector (EpiPen) pantoprazole 40 mg tablet,delayed 40 mg PO BID 06/08/18 12/04/21 release (Protonix) pramipexole 1.5 mg tablet (Mirapex) 1.5 mg PO QAM 06/08/18 12/04/21 sumatriptan succinate 100 mg 100 mg PO UD PRN 06/08/18 12/04/21 tablet (Imitrex) biotin 5,000 mcg disintegrating 5,000 mcg PO QAM tab 10/17/18 12/04/21 tablet acetaminophen 500 mg tablet 1,000 mg PO Q8H PRN 10/06/19 12/04/21 (Acetaminophen Extra Strength) diclofenac sodium 1 % topical gel 1 % TOPICAL UD 10/06/19 12/04/21 nifedipine 60 mg tablet,extended 60 mg PO QAM 10/06/19 12/04/21 release erenumab-aooe 70 mg/mL 70 mg SUBCUT UD 12/04/21 12/04/21 subcutaneous auto-injector (Aimovig Autoinjector) fluoxetine 20 mg capsule 20 mg PO DAILY 12/04/21 12/04/21 Results & Data (ED) Vital Signs Vital Signs - 24 hr 12/04/21 12:54 12/04/21 12:56 12/04/21 13:00 Temperature 36.9 C Temperature Source Oral Pulse Rate 77 83 78 Pulse Rate [Apical] Pulse Rate from SpO2 Sensor 78 77 Pulse Rhythm [Apical] Pulse Strength [Apical] Respiratory Rate 14 20 17 Respiratory Effort / Characteristics Non-Labored Spontaneous Respiratory Depth Normal Respiratory Pattern Regular Blood Pressure 141/75 H Blood Pressure [Left Arm] Blood Pressure Mean 97 Blood Pressure Mean [Left Arm] Pulse Oximetry 99 98 97 Oxygen Delivery Method Room Air Oxygen Flow Rate Sepsis Recent Fever Within 48 Hours No Sepsis New/Unexplained Change in Mental Status Yes Sepsis Action Taken by Nursing No Action Required Oxygen Flow Rate - Titration Pulse Oximetry Post Tiitration 12/04/21 13:06 12/04/21 13:30 12/04/21 14:00 Temperature 36.9 C Temperature Source Oral Pulse Rate 72 76 Pulse Rate [Apical] 83 Pulse Rate from SpO2 Sensor Pulse Rhythm [Apical] Regular Pulse Strength [Apical] Normal Respiratory Rate 20 17 17 Respiratory Effort / Characteristics Non-Labored Spontaneous Respiratory Depth Normal Respiratory Pattern Blood Pressure Blood Pressure [Left Arm] 141/75 H Blood Pressure Mean Blood Pressure Mean [Left Arm] 97 Pulse Oximetry 98 Oxygen Delivery Method Room Air Oxygen Flow Rate 0 Sepsis Recent Fever Within 48 Hours Sepsis New/Unexplained Change in Mental Status Sepsis Action Taken by Nursing Oxygen Flow Rate - Titration 0 Pulse Oximetry Post Tiitration 98 12/04/21 14:19 12/04/21 14:20 12/04/21 14:30 Temperature Temperature Source Pulse Rate 72 70 70 Pulse Rate [Apical] Pulse Rate from SpO2 Sensor Pulse Rhythm [Apical] Pulse Strength [Apical] Respiratory Rate 16 17 16 Respiratory Effort / Characteristics Respiratory Depth Respiratory Pattern Blood Pressure 105/68 Blood Pressure [Left Arm] Blood Pressure Mean 80 Blood Pressure Mean [Left Arm] Pulse Oximetry Oxygen Delivery Method Oxygen Flow Rate Sepsis Recent Fever Within 48 Hours Sepsis New/Unexplained Change in Mental Status Sepsis Action Taken by Nursing Oxygen Flow Rate - Titration Pulse Oximetry Post Tiitration 12/04/21 14:40 12/04/21 14:50 12/04/21 15:00 Temperature 36.9 C Temperature Source Oral Pulse Rate 75 75 72 Pulse Rate [Apical] 72 Pulse Rate from SpO2 Sensor Pulse Rhythm [Apical] Regular Pulse Strength [Apical] Normal Respiratory Rate 14 16 17 Respiratory Effort / Characteristics Non-Labored Spontaneous Respiratory Depth Normal Respiratory Pattern Blood Pressure Blood Pressure [Left Arm] 104/64 Blood Pressure Mean Blood Pressure Mean [Left Arm] 77 Pulse Oximetry 98 Oxygen Delivery Method Room Air Oxygen Flow Rate Sepsis Recent Fever Within 48 Hours Sepsis New/Unexplained Change in Mental Status Sepsis Action Taken by Nursing Oxygen Flow Rate - Titration Pulse Oximetry Post Tiitration 12/04/21 15:04 12/04/21 15:10 12/04/21 15:20 Temperature Temperature Source Pulse Rate 73 72 68 Pulse Rate [Apical] Pulse Rate from SpO2 Sensor Pulse Rhythm [Apical] Pulse Strength [Apical] Respiratory Rate 17 16 14 Respiratory Effort / Characteristics Respiratory Depth Respiratory Pattern Blood Pressure 104/64 Blood Pressure [Left Arm] Blood Pressure Mean 77 Blood Pressure Mean [Left Arm] Pulse Oximetry Oxygen Delivery Method Oxygen Flow Rate Sepsis Recent Fever Within 48 Hours Sepsis New/Unexplained Change in Mental Status Sepsis Action Taken by Nursing Oxygen Flow Rate - Titration Pulse Oximetry Post Tiitration 12/04/21 15:30 12/04/21 15:40 12/04/21 15:50 Temperature Temperature Source Pulse Rate 71 74 72 Pulse Rate [Apical] Pulse Rate from SpO2 Sensor Pulse Rhythm [Apical] Pulse Strength [Apical] Respiratory Rate 16 16 16 Respiratory Effort / Characteristics Respiratory Depth Respiratory Pattern Blood Pressure Blood Pressure [Left Arm] Blood Pressure Mean Blood Pressure Mean [Left Arm] Pulse Oximetry Oxygen Delivery Method Oxygen Flow Rate Sepsis Recent Fever Within 48 Hours Sepsis New/Unexplained Change in Mental Status Sepsis Action Taken by Nursing Oxygen Flow Rate - Titration Pulse Oximetry Post Tiitration 12/04/21 16:00 Temperature Temperature Source Pulse Rate 67 Pulse Rate [Apical] Pulse Rate from SpO2 Sensor Pulse Rhythm [Apical] Pulse Strength [Apical] Respiratory Rate 18 Respiratory Effort / Characteristics Respiratory Depth Respiratory Pattern Blood Pressure Blood Pressure [Left Arm] Blood Pressure Mean Blood Pressure Mean [Left Arm] Pulse Oximetry Oxygen Delivery Method Oxygen Flow Rate Sepsis Recent Fever Within 48 Hours Sepsis New/Unexplained Change in Mental Status Sepsis Action Taken by Nursing Oxygen Flow Rate - Titration Pulse Oximetry Post Tiitration Laboratory Data Result diagrams: 12/05/21 06:11 12/05/21 06:11 Lab Results 12/04/21 12/04/21 12/04/21 Range/Units 12:40 12:40 12:40 WBC 4.43 L (4.8-10.8) K/uL RBC 4.51 (4.2-5.4) M/uL Hgb 14.0 (12.0-16.0) g/dL Hct 42.1 (37-47) % MCV 93.3 (80-100) fL MCH 31.0 (25-34) pg MCHC 33.3 (32-36) g/dL RDW Std Deviation 44.2 (36.4-46.3) fL RDW Coeff of López 12.9 (11.5-14.5) % Plt Count 250 (130-400) K/uL MPV 10.0 (7.4-10.4) fL Immature Gran % (Auto) 0.0 % Neut % (Auto) 44.2 % Lymph % (Auto) 44.0 % [place] % (Auto) 7.7 % Eos % (Auto) 3.4 % Baso % (Auto) 0.7 % Neut # (Auto) 1.96 (1.4-6.5) K/uL Lymph # (Auto) 1.95 (1.2-3.4) K/uL [place] # (Auto) 0.34 (0.11-0.59) K/uL Eos # (Auto) 0.15 (0-0.5) K/uL Baso # (Auto) 0.03 (0-0.2) K/uL Immature Gran # (Auto) 0.00 (0.00-0.02) K/uL PT 10.8 (9.0-12.0) Seconds INR 1.0 (0.9-1.1) APTT 27.0 (21.0-31.0) Seconds PTT Ratio 1.0 Sodium 140 (136-145) mmol/L Potassium 3.7 (3.5-5.1) mmol/L Chloride 104 (98-107) mmol/L Carbon Dioxide 31 (21-32) mmol/L Anion Gap 5 (3-11) BUN 23 (6-23) mg/dl Creatinine 0.67 (0.6-1.2) mg/dl Est Cr Clr Drug Dosing 92.2 ml/min Est GFR ( Amer) 111.5 ml/min Est GFR (Non-Af Amer) 96.2 ml/min BUN/Creatinine Ratio 34.3 H (10-20) Glucose 70 (70-99(Fasting)) mg/dl Calcium 9.4 (8.5-10.1) mg/dl Troponin I (0-0.04) ng/ml SARS-CoV-2, RNA, NAAT (NEGATIVE) 12/04/21 12/04/21 Range/Units 12:40 15:00 WBC (4.8-10.8) K/uL RBC (4.2-5.4) M/uL Hgb (12.0-16.0) g/dL Hct (37-47) % MCV (80-100) fL MCH (25-34) pg MCHC (32-36) g/dL RDW Std Deviation (36.4-46.3) fL RDW Coeff of López (11.5-14.5) % Plt Count (130-400) K/uL MPV (7.4-10.4) fL Immature Gran % (Auto) % Neut % (Auto) % Lymph % (Auto) % [place] % (Auto) % Eos % (Auto) % Baso % (Auto) % Neut # (Auto) (1.4-6.5) K/uL Lymph # (Auto) (1.2-3.4) K/uL [place] # (Auto) (0.11-0.59) K/uL Eos # (Auto) (0-0.5) K/uL Baso # (Auto) (0-0.2) K/uL Immature Gran # (Auto) (0.00-0.02) K/uL PT (9.0-12.0) Seconds INR (0.9-1.1) APTT (21.0-31.0) Seconds PTT Ratio Sodium (136-145) mmol/L Potassium (3.5-5.1) mmol/L Chloride (98-107) mmol/L Carbon Dioxide (21-32) mmol/L Anion Gap (3-11) BUN (6-23) mg/dl Creatinine (0.6-1.2) mg/dl Est Cr Clr Drug Dosing ml/min Est GFR ( Amer) ml/min Est GFR (Non-Af Amer) ml/min BUN/Creatinine Ratio (10-20) Glucose (70-99(Fasting)) mg/dl Calcium (8.5-10.1) mg/dl Troponin I < 0.03 (0-0.04) ng/ml SARS-CoV-2, RNA, NAAT NEGATIVE (NEGATIVE) Administered Medications Acetaminophen (Acetaminophen 325 Mg Tab) 650 mg PO Q4H PRN PRN Reason: Pain or Fever Stop: 01/04/22 04:40 Last Admin: 12/05/21 05:08 Dose: 650 mg Documented by: [id number] Diclofenac Sodium (Diclofenac Sod 1% Gel 100 Gm Tube) 2 gm EXT QID PRN PRN Reason: right wrist pain Stop: 01/03/22 17:56 Last Admin: 12/05/21 05:17 Dose: 2 gm Documented by: [id number] Fluoxetine HCl (Fluoxetine Hcl 20 Mg Cap) 20 mg PO DAILY [facility] Stop: 01/04/22 08:59 Last Admin: 12/05/21 08:35 Dose: 20 mg Documented by: [id number] Heparin Sodium (Porcine) (Heparin Sod 5,000 Unit/0.5 Ml Vial) 5,000 units SQ Q8 [facility] Stop: 01/03/22 21:59 Last Admin: 12/05/21 05:09 Dose: 5,000 units Documented by: [id number] Admin: 12/04/21 21:55 Dose: 5,000 units Documented by: [id number] Miscellaneous (Cevimeline: Order Awaiting Action) 1 ea N/A QS [facility] Stop: 01/04/22 00:00 Last Admin: 12/05/21 08:36 Dose: Not Given Documented by: [id number] Admin: 12/05/21 01:44 Dose: Not Given Documented by: [id number] Nifedipine (Nifedipine Extended Rel 30 Mg Tabcr) 60 [facility] Stop: 01/04/22 08:59 Last Admin: 12/05/21 08:35 Dose: 60 mg Documented by: [id number] Pantoprazole Sodium (Pantoprazole 40 Mg Tab) 40 mg PO BID [facility] Stop: 01/03/22 20:59 Last Admin: 12/05/21 08:35 Dose: 40 mg Documented by: [id number] Admin: 12/04/21 21:55 Dose: 40 mg Documented by: [id number] Pramipexole Dihydrochloride (Pramipexole Dihydrochlo 0.5 Mg Tab) 1.5 mg PO QAM [facility] Stop: 01/04/22 08:59 Last Admin: 12/05/21 08:35 Dose: 1.5 mg Documented by: [id number] Vitamin D (Cholecalciferol 1,000 Units 25 Mcg Tab) 2,000 units PO QAM [facility] Stop: 01/04/22 08:59 Last Admin: 12/05/21 08:35 Dose: 2,000 units Documented by: [id number] Discontinued Medications Diphtheria/Pertussis/Tetanus Vacc (Diphtheria/Tetanus/Pertussis 0.5 Ml Syr/Vial) 0.5 ml IM .ONCE ONE Stop: 12/04/21 12:39 Last Admin: 12/04/21 12:48 Dose: 0.5 ml Documented by: [id number] Lorazepam (Lorazepam 2 Mg/1 Ml Vial) 1 mg IV NOW STA Stop: 12/04/21 12:39 Last Admin: 12/04/21 12:47 Dose: 1 mg Documented by: [id number] Imaging Data Radiologist's Impression: Cervical Spine CT 12/04/21 12:[address] DOSE: HISTORY: head injury, ams TECHNIQUE: Multiaxial CT images of the cervical spine were performed and re formatted in the sagittal and coronal plane without the use of contrast. A dose lowering technique was utilized adhering to the principles of ALARA. COMPARISON: Cervical spine CT 12/09/2019. FINDINGS: No fractures. No subluxation. Prevertebral soft tissues and the C1-C2 interval are intact. No pneumothorax. Straightening of the cervical spine. Mild degenerative disc disease at C5-C6 and C6-C7. IMPRESSION: No fractures within the cervical spine. ACT 112: Negative or not required by law. Electronically signed by: Lopez Hernandez M.D. 12/04/2021 2:[address] 12/04/21 12:38 CT head/brain wo con CLINICAL HISTORY: 61 years-old Female with closed head injury, amnesia. Acute head injury with memory loss TECHNIQUE: Multiple axial CT images of the head were obtained without contrast. A dose lowering technique was utilized adhering to the principles of ALARA. CT DOSE: 1118.46 mGycm COMPARISON: Head CT 12/09/2019 FINDINGS: Study is mildly motion degraded. No acute intracranial hemorrhage, midline shift, intracranial mass, hydrocephalus, territorial ischemia or abnormal extra-axial collection. The calvarium is intact. Prior bilateral lens repair. The paranasal sinuses, mastoid air cells, and middle ear cavities are clear. IMPRESSION: No acute intracranial abnormality or calvarial fracture. ACT 112: Negative or not required by law. The above report was generated using voice recognition software. It may contain grammatical, syntax or spelling errors. Electronically signed by: Chris Morse M.D. 12/04/2021 1:28 PM Wrist X-Ray 12/04/21 12:38 XR wrist RT min 3V routine HISTORY: 61 years-old Female fall, right wrist injury acute right-sided wrist pain status post fall COMPARISON: Right forearm radiographs 12/09/2019 TECHNIQUE: Right forearm radiographs 12/09/2019 FINDINGS: Chronic displaced ulnar styloid fracture. Subcortical cystic changes of the scaphoid. Mild to moderate multifocal osteoarthritis. No acute fracture, dislocation or opaque foreign body. Ill-defined linear lucency of the distal rad ial cortex seen best on the PA internal rotation view. IMPRESSION: 1. Ill-defined longitudinal linear lucency of the distal radius is likely projectional. A subtle acute nondisplaced fracture is considered less likely. Correlate with point tenderness. 2. Chronic displaced ulnar styloid fracture. ACT 112: Negative or not required by law. The above report was generated using voice recognition software. It may contain grammatical, syntax or spelling errors. Electronically signed by: Chris Morse M.D. 12/04/2021 1:45 PM Chest X-Ray 12/04/21 12:40 XR chest 1V portable CLINICAL HISTORY: trauma COMPARISON STUDY: Chest CT December 09, 2019. Chest radiograph October 06, 2019. FINDINGS: Lung volumes are normal. Lungs are clear. There is no pneumothorax or pleural effusion. Cardiac size is normal. Mediastinal contours are normal. There is no evidence for pulmonary edema. IMPRESSION: No acute cardiopulmonary findings. ACT 112: Negative or not required by law. Electronically signed by: Milton Joy M.D. 12/04/2021 1:18 PM Discharge Plan Visit Data Chief Complaint: Fall ED Provider: Micah Dimas Discharge Problem: Closed head injury, Anxiety, Amnesia Patient Disposition: Admitted As Inpatient Discharge Instructions Interventions: ED Discharge Assessment Last Done: 12/04/21 17:10 Discharge Problem: Closed head injury Qualifiers: Encounter type: initial encounter Qualified Code(s): S09.90XA - Unspecified injury of head, initial encounter
[2021-12-04 12:51] LABS: Basophils # (auto) 0.03 K/uL (0-0.2); Basophils % (auto) 0.7 %; Eosinophils # (auto) 0.15 K/uL (0-0.5); Eosinophils % (auto) 3.4 %; Hematocrit (blood only) 42.1 % (37-47); Lymphocytes # (auto) 1.95 K/uL (1.2-3.4); Mean Corpuscular Hgb Conc 33.3 g/dL (32-36); Mean Corpuscular Volume 93.3 fL (80-100); Monocytes # (auto) 0.34 K/uL (0.11-0.59); Monocytes % (auto) 7.7 %; Neutrophils # (auto) 1.96 K/uL (1.4-6.5); Neutrophils % (auto) 44.2 %; Platelet Count 250 K/uL (130-400); RDW Coefficient of Variation 12.9 % (11.5-14.5); RDW Standard Deviation 44.2 fL (36.4-46.3); Red Blood Count 4.51 M/uL (4.2-5.4); White Blood Count 4.43 K/uL (4.8-10.8)
[2021-12-04 13:04] LABS: Prothrombin Time 10.8 Seconds (9.0-12.0)
[2021-12-04 13:13] LABS: BUN Creatinine Ratio 34.3 (10-20); Calcium 9.4 mg/dl (8.5-10.1); Creatinine Clr Calc Pharmacy 92.2 ml/min; Est GFR (African American) 111.5 ml/min; Est GFR (Non-African American) 96.2 ml/min; Potassium 3.7 mmol/L (3.5-5.1)
--- NOTE | 2021-12-04 13:19 | XRay Report ---
XR chest 1V portable CLINICAL HISTORY: trauma COMPARISON STUDY: Chest CT December 09, 2019. Chest radiograph October 06, 2019. FINDINGS: Lung volumes are normal. Lungs are clear. There is no pneumothorax or pleural effusion. Car diac size is normal. Mediastinal contours are normal. There is no evidence for pulmonary edema. IMPRESSION: No acute cardiopulmonary findings. ACT 112: Negative or not required by law. Electronically signed by: Milton Joy M.D. 12/04/2021 1:18 PM
--- NOTE | 2021-12-04 13:30 | CT Scan Report ---
CT head/brain wo con CLINICAL HISTORY: 61 years-old Female with closed head injury, amnesia. Acute head injury with memor y loss TECHNIQUE: Multiple axial CT images of the head were obtained without contrast. A dose lowering tech nique was utilized adhering to the principles of ALARA. CT DOSE: 1118.46 mGycm COMPARISON: Head CT 12/09/2019 FINDINGS: Study is mildly motion degraded. No acute intracranial hemorrhage, midline shift, intracranial mass, hydrocephalus, territorial ischemia or abnormal extra-axial collection. The calvarium is intact. Prior bilateral lens repair. The paranasal sinuses, mastoid air cells, and m iddle ear cavities are clear. IMPRESSION: No acute intracranial abnormality or calvarial fracture. ACT 112: Negative or not required by law. The above report was generated using voice recognition software. It may contain grammatical, syntax o r spelling errors. Electronically signed by: Chris Morse M.D. 12/04/2021 1:28 PM
--- NOTE | 2021-12-04 13:48 | XRay Report ---
XR wrist RT min 3V routine HISTORY: 61 years-old Female fall, right wrist injury acute right-sided wrist pain status post fall COMPARISON: Right forearm radiographs 12/09/2019 TECHNIQUE: Right forearm radiographs 12/09/2019 FINDINGS: Chronic displaced ulnar styloid fracture. Subcortical cystic changes of the scaphoid. Mild to moderat e multifocal osteoarthritis. No acute fracture, dislocation or opaque foreign body. Ill-defined linea r lucency of the distal radial cortex seen best on the PA internal rotation view. IMPRESSION: 1. Ill-defined longitudinal linear lucency of the distal radius is likely projectional. A subtle acut e nondisplaced fracture is considered less likely. Correlate with point tenderness. 2. Chronic displaced ulnar styloid fracture. ACT 112: Negative or not required by law. The above report was generated using voice recognition software. It may contain grammatical, syntax o r spelling errors. Electronically signed by: Chris Morse M.D. 12/04/2021 1:45 PM
--- NOTE | 2021-12-04 14:13 | CT Scan Report ---
CERVICAL SPINE CT CT DOSE: HISTORY: head injury, ams TECHNIQUE: Multiaxial CT images of the cervical spine were performed and reformatted in the sagittal and coronal plane without the use of contrast. A dose lowering technique was utilized adhering to th e principles of ALARA. COMPARISON: Cervical spine CT 12/09/2019. FINDINGS: No fractures. No subluxation. Prevertebral soft tissues and the C1-C2 interval are intact. No pneumothorax. Straightening of the cervical spine. Mild degenerative disc disease at C5-C6 and C6- C7. IMPRESSION: No fractures within the cervical spine. ACT 112: Negative or not required by law. Electronically signed by: Lopez Hernandez M.D. 12/04/2021 2:11 PM
--- NOTE | 2021-12-04 15:29 | History & Physical Report ---
Date of Service December 04, 2021 Assessment & Plan (1) Syncope: Plan: - Admit to tele-the event was unwitnessed -Patient sustained an injury/small laceration and abrasion to the forehead, glued with Dermabond in the ER - Trend cardiac biomarkers, initial set was negative - EKG reviewed as above without any acute findings - Check 2 D echo - Consult neurology for confusion and possible amnesia in the setting of head injuries in the past - PT/OT consulted with hx of gait disturbance and other connective tissue diseases - No new medication changes - Imaging of the head including CT is negative for any acute abnormalities or findings - R wrist xray showing : right ulnar styloid process fracture which appears to be chronic in nature - Continue pain control with acetaminophen (2) Raynaud disease: Plan: - Chronic, stable - May continue cevimeline - Hx of connective tissue disorder that neurology is following, causes gait disturbance, not fully diagnosed specifically due to lack of positives on testing and imaging studies. (3) GERD (gastroesophageal reflux disease): Plan: -Continue pantoprazole (4) Borderline personality disorder: (5) PTSD (post-traumatic stress disorder): (6) Bipolar disorder: (7) Anxiety: Plan: - Continue Prozac - required a dose of Ativan 1 mg IV in the ER due to having a panic attack - Possible that benzo is causing the slight slurring and falling asleep (8) Migraine: Plan: -Has follow-up with Dr. Salgado with neurology as an outpatient, may continue on Aimovig injection once monthly for migraine improvement, patient reports having good results from this thus far. DVT ppx: - teds, scds, heparin subcu CODE: Full code Dispo: From home, likely to remain in the hospital x 1-2 days History of Present Illness Primary Care Provider: Abner Burnett MD This is a 61 yo F with PMHx of multiple psychiatric illnesses including bipolar disorder, anxiety, depression, panic attack, hx of self mutilation, borderline personality, PTSD and suicidal ideations in the past. 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 She presents from a friends house, possibly helping move some items? but she cannot articulate exactly what she was doing earlier this morning. EMS reported that she reappeared to a person or some people, she had blood running down the front of her forehead and face. She cannot recall anything about what happened and the event was unwitnessed. Upon arrival to the ER via EMS, she was distraught and having a panic attack per staff, where she was administered Ativan 1 mg IV, and now is much more calm, but seems to be slurring some words since being given this, drifts off in thought. She thinks it is 2003, and cannot enter the pin to unlock her phone to retrieve her mothers phone number. She expresses severe concern about her mother being home by herself hannah. She is unable to provide me with her number and is not accessible within the chart. She was given a TDAP vaccination in the ER. Allergies Allergy/AdvReac Type Severity Reaction Status Date / Time aripiprazole Allergy Severe FACIAL Verified 12/04/21 16:39 SWELLING bee venom protein (honey bee) Allergy Severe pt. gets Verified 12/04/21 16:39 extreme swelling at the site and beyond,rash prednisone Allergy Severe RASH, Verified 12/04/21 16:39 MIGRAINE HEADACHE paliperidone [From Invega] Allergy Intermediate HIVES, Verified 12/04/21 16:39 SWELLING propranolol Allergy Intermediate hives Verified 12/04/21 16:39 doxycycline AdvReac Intermediate vomiting Verified 12/04/21 16:39 carbamazepine [From Tegretol] AdvReac Unknown Rash Verified 12/04/21 16:39 Home Medications Medication Instructions Recorded Confirmed Type cevimeline 30 mg capsule 30 mg PO TID 06/08/18 12/04/21 History cholecalciferol (vitamin D3) 25 2,000 unit PO QAM 06/08/18 12/04/21 History mcg (1,000 unit) capsule (Vitamin D3) epinephrine 0.3 mg/0.3 mL 0.3 mg IM UD PRN 06/08/18 12/04/21 History injection, auto-injector (EpiPen) pantoprazole 40 mg tablet,delayed 40 mg PO BID 06/08/18 12/04/21 History release (Protonix) pramipexole 1.5 mg tablet (Mirapex) 1.5 mg PO QAM 06/08/18 12/04/21 History sumatriptan succinate 100 mg 100 mg PO UD PRN 06/08/18 12/04/21 History tablet (Imitrex) biotin 5,000 mcg disintegrating 5,000 mcg PO QAM tab 10/17/18 12/04/21 History tablet acetaminophen 500 mg tablet 1,000 mg PO Q8H PRN 10/06/19 12/04/21 History (Acetaminophen Extra Strength) diclofenac sodium 1 % topical gel 1 % TOPICAL UD 10/06/19 12/04/21 History nifedipine 60 mg tablet,extended 60 mg PO QAM 10/06/19 12/04/21 History release erenumab-aooe 70 mg/mL 70 mg SUBCUT UD 12/04/21 12/04/21 History subcutaneous auto-injector (Aimovig Autoinjector) fluoxetine 20 mg capsule 20 mg PO DAILY 12/04/21 12/04/21 History Past Med/Surg History Medical History (Updated 12/04/21 @ 16:38 by Micah Dimas MD) Anxiety Attention deficit disorder (ADD) Bipolar disorder Borderline personality disorder Cardiac murmur Chronic back pain Congenital malrotation of intestine Esophageal dysmotility GERD (gastroesophageal reflux disease) History of hypotension Major depression Migraine Mood disorder Osteopenia Post traumatic stress disorder Raynaud disease Scleroderma Self-mutilation Sjogrens syndrome Temporomandibular joint disorder Surgical History History of anesthesia reaction SLOW TO WAKE History of cataract surgery History of cholecystectomy History of colonoscopy History of esophagogastroduodenoscopy (EGD) History of right heart catheterization [facility] - 1999 - CHECK RESP STATUS R/T SCLERODERMA - REPORTS WNL History of surgery LEFT INDEX FINGER History of thumb surgery LEFT History of tooth extraction Status post dilation of esophageal narrowing Status post trigger finger release Family History Mother Family history of reaction to anesthesia SLOW TO WAKE Other Family history unremarkable Social History Smoking Status: Never smoker Second Hand Exposure: No; Hx Alcohol Use: Yes Alcohol type: beer Hx Substance Use: No Preferred Language: Mauritanian Communication Ability: Effective Visual Impairment: Limited Hearing Ability: Normal Medical Records Receptionist Required: No Beliefs That Will Affect Care: None marital status: Single Current Living Situation: Parent current occupational status: employed 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 Feels Safe at Home: Yes Assistive Devices: None Review of Systems Review of Systems: Constitutional: No fever, sweats or chills, no current headache Eyes: No diplopia, no worsening or blurred vision ENT: normal hearing, no trouble swallowing Respiratory: No cough, sputum, dyspnea at rest or on exertion Cardiovascular: No chest pain, tightness or palpitations Abdomen: No pain, nausea, vomiting, diarrhea or constipation Musculoskeletal: R wrist joint pain, no calf pain, no swelling Neurologic: No weakness, numbness/tingling, or balance problems Psychiatric: + anxiety or depression on medication Skin: No rash or itch Physical Exam Physical Exam: General: awake, alert, no apparent distress Head: Normocephalic, +traumatic ecchymotic lesion over the right forehead with 3-4 mm laceration which has been dermabonded. ENT: PERRL, EOMI, ocular conjunctiva is bloodshot appearing, no pharyngeal exudate, mucous membranes moist, dentition intact Chest: Clear to auscultation, on room air, no adventitious breath sounds Cardiac: Regular rate and rhythm, no murmur, no JVD, normal peripheral pulses, good capillary refill Abdominal: NABS x 4 quadrants, soft, nondistended, nontender to palpation, no rebound or guarding Extremities: Normal inspection, no peripheral edema or erythema, calfs nontender to palpation Psych: Normal mood and affect Neuro: AAO x 3, strength intact bilaterally and rated 5/5, no motor deficits, speech is clear, no peripheral sensory deficits Results & Data Results & Data ([facility]) Vital Signs (Past 12 Hours) Vital Signs Temp Pulse Pulse Resp BP BP Pulse Ox 12/04/21 15:00 36.9 C 72 18 104/64 98 12/04/21 14:19 72 16 105/68 12/04/21 14:00 76 17 12/04/21 13:30 72 17 12/04/21 13:06 36.9 C 83 20 141/75 H 98 12/04/21 13:00 78 17 97 12/04/21 12:56 36.9 C 83 20 141/75 H 98 12/04/21 12:54 77 14 99 Laboratory Results 12/04/21 12/04/21 12/04/21 15:00 12:40 12:40 WBC RBC Hgb Hct MCV MCH MCHC RDW Std Deviation RDW Coeff of López Plt Count MPV Immature Gran % (Auto) Neut % (Auto) Lymph % (Auto) [place] % (Auto) Eos % (Auto) Baso % (Auto) Neut # (Auto) Lymph # (Auto) [place] # (Auto) Eos # (Auto) Baso # (Auto) Immature Gran # (Auto) PT INR APTT PTT Ratio Sodium 140 Potassium 3.7 Chloride 104 Carbon Dioxide 31 Anion Gap 5 BUN 23 Creatinine 0.67 Est Cr Clr Drug Dosing 92.2 Est GFR ( Amer) 111.5 Est GFR (Non-Af Amer) 96.2 BUN/Creatinine Ratio 34.3 H Glucose 70 Calcium 9.4 Troponin I < 0.03 SARS-CoV-2, RNA, NAAT NEGATIVE 12/04/21 12/04/21 12:40 12:40 WBC 4.43 L RBC 4.51 Hgb 14.0 Hct 42.1 MCV 93.3 MCH 31.0 MCHC 33.3 RDW Std Deviation 44.2 RDW Coeff of López 12.9 Plt Count 250 MPV 10.0 Immature Gran % (Auto) 0.0 Neut % (Auto) 44.2 Lymph % (Auto) 44.0 [place] % (Auto) 7.7 Eos % (Auto) 3.4 Baso % (Auto) 0.7 Neut # (Auto) 1.96 Lymph # (Auto) 1.95 [place] # (Auto) 0.34 Eos # (Auto) 0.15 Baso # (Auto) 0.03 Immature Gran # (Auto) 0.00 PT 10.8 INR 1.0 APTT 27.0 PTT Ratio 1.0 Sodium Potassium Chloride Carbon Dioxide Anion Gap BUN Creatinine Est Cr Clr Drug Dosing Est GFR ( Amer) Est GFR (Non-Af Amer) BUN/Creatinine Ratio Glucose Calcium Troponin I SARS-CoV-2, RNA, NAAT Diagnostic Findings Cervical Spine CT 12/04/21 12:[address] DOSE: HISTORY: head injury, ams TECHNIQUE: Multiaxial CT images of the cervical spine were performed and reformatted in the sagittal and coronal plane without the use of contrast. A dose lowering technique was utilized adhering to the principles of ALARA. COMPARISON: Cervical spine CT 12/09/2019. FINDINGS: No fractures. No subluxation. Prevertebral soft tissues and the C1-C2 interval are intact. No pneumothorax. Straightening of the cervical spine. Mild degenerative disc disease at C5-C6 and C6-C7. IMPRESSION: No fractures within the cervical spine. ACT 112: Negative or not required by law. Electronically signed by: Lopez Hernandez M.D. 12/04/2021 2:[address] 12/04/21 12:38 CT head/brain wo con CLINICAL HISTORY: 61 years-old Female with closed head injury, amnesia. Acute head injury with memory loss TECHNIQUE: Multiple axial CT images of the head were obtained without contrast. A dose lowering technique was utilized adhering to the principles of ALARA. CT DOSE: 1118.46 mGycm COMPARISON: Head CT 12/09/2019 FINDINGS: Study is mildly motion degraded. No acute intracranial hemorrhage, midline herman ft, intracranial mass, hydrocephalus, territorial ischemia or abnormal extra- axial collection. The calvarium is intact. Prior bilateral lens repair. The paranasal sinuses, mastoid air cells, and middle ear cavities are clear. IMPRESSION: No acute intracranial abnormality or calvarial fracture. ACT 112: Negative or not required by law. The above report was generated using voice recognition software. It may contain grammatical, syntax or spelling errors. Electronically signed by: Chris Morse M.D. 12/04/2021 1:28 PM Wrist X-Ray 12/04/21 12:38 XR wrist RT min 3V routine HISTORY: 61 years-old Female fall, right wrist injury acute right-sided wrist pain status post fall COMPARISON: Right forearm radiographs 12/09/2019 TECHNIQUE: Right forearm radiographs 12/09/2019 FINDINGS: Chronic displaced ulnar styloid fracture. Subcortical cystic changes of the scaphoid. Mild to moderate multifocal osteoarthritis. No acute fracture, dislocation or opaque foreign body. Ill-defined linear lucency of the distal radial cortex seen best on the PA internal rotation view. IMPRESSION: 1. Ill-defined longitudinal linear lucency of the distal radius is likely projectional. A subtle acute nondisplaced fracture is considered less likely. Correlate with point tenderness. 2. Chronic displaced ulnar styloid fracture. ACT 112: Negative or not required by law. The above report was generated using voice recognition software. It may contain grammatical, syntax or spelling errors. Electronically signed by: Chris Morse M.D. 12/04/2021 1:45 PM Chest X-Ray 12/04/21 12:40 XR chest 1V portable CLINICAL HISTORY: trauma COMPARISON STUDY: Chest CT December 09, 2019. Chest radiograph October 06, 2019. FINDINGS: Lung volumes are normal. Lungs are clear. There is no pneumothorax or pleural effusion. Cardiac size is normal. Mediastinal contours are normal. There is no evidence for pulmonary edema. IMPRESSION: No acute cardiopulmonary findings. ACT 112: Negative or not required by law. Electronically signed by: Milton Joy M.D. 12/04/2021 1:18 PM Supervising Physician Co-Signing Physician Notes Attending addendum: The patient was seen and examined in telemetry unit; Remained very confused with significant global amnesia.Detailed history was taken from Saumya Heath, her friend with #[id number]. She has been helping Saumya in remodeling her house and was noted to be in normal condition yesterday. Kari went to help her this morning around 11 AM. She dropped a vacuum filter cleaner in Saumya's house and went to get something more from her car. At that time Saumya was inside the house. In about 5 minutes Saumya heard a scream when she ran outside the house and found Kari soaked in blood on the ground. She took her inside and since that time she has been not remembering anything. Saumya called 911 and she was brought into the hospital for further evaluation. She has a significant history of bipolar disorder and as per Saumya she has not been taking her medications for some time. She has a therapist whom she was asking to see and contact. She has been asking for her mother, dogs and goats. As per Saumya everything has been taken care of. On examination She cannot remember anything even before or after the trauma Remains hemodynamically stable Does not have any intracranial hemorrhage or any fracture on skeletal survey Likely has global amnesia following the fall and head injury with concussion Neurologist has been consulted Agree with assessment and plan as outlined above by Jyotsna Hernandez
[2021-12-04] MEDS ORDERED: ONDANSETRON INJ 2 MG/ML 2 ML VIAL IV PRN (17:15)
[2021-12-04] MEDS ORDERED: DICLOFENAC SOD 1% GEL 100 GM TUBE EXT SCH (17:15)
[2021-12-04 17:32] LABS: Appearance Urine Cloudy (Clear); Bacteria Urine Automated 4+ (Negative); Bilirubin Urine Negative (Negative); Blood Urine Negative (Negative); Color Urine Yellow; Epithelial Cell Urine Auto >30 /lpf (0-5); Glucose Urine UA Negative (Negative); Ketones Urine Negative (Negative); Leukocyte Esterase Urine 1+ (Negative); Nitrite Urine Positive (Negative); Protein Urine Negative (Negative); RBC Urine Automated 0-4 /hpf (0-4); Specific Gravity Urine 1.023 (1.000-1.030); Urobilinogen Urine Negative (Negative); pH Urine 6.5 (4.5-7.5)
[2021-12-04] MEDS ORDERED: DICLOFENAC SOD 1% GEL 100 GM TUBE EXT PRN (17:57)
[2021-12-04 17:59] LABS: Amphetamines+Metham, Urine Neg (Neg); Barbiturates, Urine Neg (Neg); Benzodiazepine, Urine Neg (Neg); Cocaine, Urine Neg (Neg); MDMA (Ecstacy), Urine Neg (Neg); Methadone, Urine Neg (Neg); Opiate, Urine Neg (Neg); Phencyclidine, Urine Neg (Neg)
[2021-12-04] MEDS ORDERED: FLUARIX QUADRIVALENT 0.5 ML SYR IM ONE (19:07)
[2021-12-04] MEDS: PANTOprazole 40 MG TAB PO SCH (21:55)
[2021-12-04] MEDS: HEPARIN SOD 5,000 UNIT/0.5 ML VIAL SQ SCH (21:55)
[2021-12-05] MEDS: ACETAMINOPHEN 325 MG TAB PO PRN ×2 (05:08→14:42)
[2021-12-05] MEDS: HEPARIN SOD 5,000 UNIT/0.5 ML VIAL SQ SCH ×3 (05:09→21:56)
[2021-12-05 06:58] LABS: Hematocrit (blood only) 40.3 % (37-47); Hemoglobin 13.2 g/dL (12.0-16.0); Mean Corpuscular Hgb Conc 32.8 g/dL (32-36); Mean Corpuscular Volume 94.6 fL (80-100); Mean Platelet Volume 10.1 fL (7.4-10.4); Platelet Count 229 K/uL (130-400); RDW Coefficient of Variation 13.2 % (11.5-14.5); RDW Standard Deviation 45.3 fL (36.4-46.3); Red Blood Count 4.26 M/uL (4.2-5.4); White Blood Count 5.92 K/uL (4.8-10.8)
[2021-12-05 07:21] LABS: Troponin I < 0.03 ng/ml (0-0.04)
[2021-12-05 07:25] LABS: Alanine Aminotransferase 18 U/L (7-52); Albumin Globulin Ratio 1.4 (0.9-2); Albumin Level 3.7 gm/dl (3.4-5.0); Alkaline Phosphatase 87 U/L (34-104); Anion Gap 4 (3-11); Aspartate Aminotransferase 18 U/L (13-39); BUN Creatinine Ratio 33.3 (10-20); Bilirubin,Total 0.7 mg/dl (0.2-1.0); Blood Urea Nitrogen 21 mg/dl (6-23); Calcium 8.9 mg/dl (8.5-10.1); Carbon Dioxide 27 mmol/L (21-32); Chloride 106 mmol/L (98-107); Creatinine Clr Calc Pharmacy 93.5 ml/min; Est GFR (African American) 113.8 ml/min; Est GFR (Non-African American) 98.2 ml/min; Globulin 2.7 gm/dl (2.5-4.0); Glucose 113 mg/dl (70-99(Fasting)); Potassium 3.7 mmol/L (3.5-5.1); Sodium 137 mmol/L (136-145); Total Protein 6.4 gm/dl (6.0-8.3)
[2021-12-05] MEDS: PRAMIPEXOLE DIHYDROCHLO 0.5 MG TAB PO SCH (08:35)
[2021-12-05] MEDS: CHOLECALCIFEROL 1,000 UNITS 25 MCG TAB PO SCH (08:35)
[2021-12-05] MEDS: FLUoxetine HCL 20 MG CAP PO SCH (08:35)
[2021-12-05] MEDS: NIFEdipine EXTENDED REL 30 MG TABCR PO SCH (08:35)
[2021-12-05] MEDS: PANTOprazole 40 MG TAB PO SCH ×2 (08:35→21:55)
[2021-12-05] MEDS ORDERED: NON-FORMULARY MEDICATION (Biotin 5,000 mcg tablet,disintegrating) PO SCH (09:00)
--- NOTE | 2021-12-05 09:49 | Electrocardiogram Report ---
Test Reason : Blood Pressure : / mmHG Vent. Rate : 075 BPM Atrial Rate : 075 BPM P-R Int : 152 ms QRS Dur : 070 ms QT Int : 382 ms P-R-T Axes : 056 069 049 degrees QTc Int : 426 ms Normal sinus rhythm Normal ECG When compared with ECG of 09-DEC-2019 19:24, No significant change was found Confirmed by Sharif Mejia ([id number]) on 12/05/2021 9:49:08 AM Referred By: REFERRED SELF Confirmed By:Sharif Mejia
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
[2021-12-05] MEDS: cefTRIAXone SODIUM 1,000 MG in DEXTROSE 5% 50 ML IV SCH (14:40)
--- NOTE | 2021-12-05 15:17 | Consultation Report ---
NEUROLOGY CONSULTATION NOTE DATE OF CONSULTATION: 12/05/2021. CHIEF COMPLAINT: Loss of consciousness/amnesia. HISTORY OF PRESENT ILLNESS: A 61-year-old female with known bipolar mood disorder, anxiety, depressi on, previous suicidal ideations and PTSD, admitted with presumed fall or loss of consciousness. This was an unwitnessed event. The patient is amnestic to the event, although has an abrasion on the rig ht frontal forehead. She is currently complaining of a headache as well as feeling nauseated. She d oes not feel well. She does follow with Neurology for her migraines. She does use Aimovig as well a s Imitrex. She denies any alcohol use. No new medications. She does follow closely with Psychology as well as Psychiatry. She has had adverse side effects to several medications in the past includin g Abilify. She denies any known history of seizures. She did not bite her tongue. She states she w as helping a friend out yesterday when she went to get something out of the vehicle. Her friend hear d a scream and then the patient was found down. She does not recall tripping over anything or any pr emonitory symptoms. She has known history of epilepsy. No reported concern for medication overuse o r drug overdose. Neurology was consulted for suspected concussion. ALLERGIES: ABILIFY, BEE VENOM, PREDNISONE, INVEGA, PROPRANOLOL, DOXYCYCLINE, TEGRETOL. HOME MEDICATIONS: Vitamin D, epinephrine as needed, Protonix, pramipexole, Imitrex, biotin, acetamin ophen, diclofenac, nifedipine, Aimovig, Prozac. PAST MEDICAL HISTORY: Anxiety, ADD, bipolar mood disorder, borderline personality disorder, cardiac murmur, chronic back pain, migraine headaches, osteopenia, posttraumatic stress disorder, Raynaud's, scleroderma, self-mutilation, Sjogren's. PAST SURGICAL HISTORY: Cataracts, cholecystectomy, colonoscopy, EGD, right cardiac catheterization, left index finger surgery, thumb surgery, tooth extraction, post-dilatation for esophageal narrowing, status post trigger finger release. FAMILY HISTORY: Reviewed and no pertinent family history noted. SOCIAL HISTORY: She is a nonsmoker. She denies any recent alcohol use. She is single. She is empl oyed and works in [place], [place]. REVIEW OF SYSTEMS: Positive for amnesia, loss of consciousness, concussion, balance problems. Other pineda, all other review of systems is negative. PHYSICAL EXAMINATION: VITAL SIGNS: Blood pressure 126/81, pulse is 68, respiratory rate 18, temperature is 36.8 degrees Ce lsius, oxygen saturation is 98% on room air. GENERAL: The patient is awake, alert. She appears stated age, in no distress. HEENT: Head shows a laceration or abrasion on the right forehead near the hairline. Conjunctivae are mildly injected. Eyes are midline. Tongue is midline. NECK: Supple. LUNGS: Normal respiratory effort. CARDIAC: Pulses are intact. ABDOMEN: Nondistended. SKIN: She has no skin rash, although there are some previous scars on her forearms. Mood is normal. NEUROLOGIC: She is awake, alert, oriented to person, place, and time. She is following commands. S peech is clear. No evidence of aphasia. Extraocular muscles intact. Pupils symmetric. Tongue is m idline. No abrasion. No ataxia with [id number] testing. No focal weakness. Sensation is intac t to light touch. Gait examination deferred. DIAGNOSTIC TESTING AND LABORATORY VALUES: WBC 5.92, hemoglobin 13.2, platelet count is 229. Sodium 137, potassium 3.7, chloride 106, carbon dioxide 27, BUN 21, creatinine 0.63, glucose is 113. Liver enzymes are normal. Troponins negative. Urinalysis is cloudy, 1+ leukocyte esterase, 5-10 wbc's, 4+ bacteria. Tox screen was negative. Urine culture showed gram-negative bacilli. Chest x-ray showed no acute cardiopulmonary findings. Head CT noncontrast showed no acute intracranial abnormality or calvarial fracture. ASSESSMENT AND PLAN: A 61-year-old woman admitted with an unwitnessed loss of consciousness yesterda y and noted to be amnestic to the event with an abrasion on the right forehead with an increase in he adaches. The patient is well known to have migraine headaches and follow with Neurology on Aimovig a s well as Imitrex. On examination, now, she does not appear encephalopathic. No evidence of aphasia . There is no tongue abrasion. She has no history of epilepsy. Neurological exam appears to be bas judie with no focal deficits noted. On review of diagnostic testing, her urinalysis shows gram-negat erlinda bacilli. We will defer to primary team for treatment of the urinary tract infection. Otherwise, would not recommend starting an antiepileptic medication. Unclear if this was a provoked episode du e to urinary tract infection versus syncope versus a mechanical fall with mild traumatic brain injury . Agree with continuing home medications for migraine management including Aimovig as well as Imitre x as needed. While inpatient, the patient can have Toradol IV or Reglan IV as needed for worsening he adaches. Although the patient notes adverse side effects from several medications in the past. I wou ld recommend an outpatient EEG upon discharge. The patient should otherwise continue to follow with her psychiatrist as well as a psychologist for known mood disorder. I did discuss concern regarding concussion and that headaches may be worse for a period of time. Would recommend PT and OT for any r ehabilitation needs. Strongly avoid hitting her head in the near future given the recent concussion. Otherwise, please contact me with any additional questions or concerns. Job ID: [id number]
[2021-12-05] MEDS ORDERED: ERENUMAB SC SCH (18:00)
[2021-12-05] MEDS: SUMAtriptan succinate 100 MG TAB PO PRN (21:55)
[2021-12-06] MEDS: HEPARIN SOD 5,000 UNIT/0.5 ML VIAL SQ SCH ×3 (06:24→21:17)
[2021-12-06] MEDS: cefTRIAXone SODIUM 1,000 MG in DEXTROSE 5% 50 ML IV SCH (07:41)
[2021-12-06] MEDS: CHOLECALCIFEROL 1,000 UNITS 25 MCG TAB PO SCH (07:49)
[2021-12-06] MEDS: FLUoxetine HCL 20 MG CAP PO SCH (07:50)
[2021-12-06] MEDS: NIFEdipine EXTENDED REL 30 MG TABCR PO SCH (07:51)
[2021-12-06] MEDS: PRAMIPEXOLE DIHYDROCHLO 0.5 MG TAB PO SCH (07:52)
[2021-12-06] MEDS: PANTOprazole 40 MG TAB PO SCH ×2 (07:52→21:17)
--- NOTE | 2021-12-06 13:19 | Hospitalist Progress Note ---
Date of Service December 06, 2021 Assessment & Plan (1) Syncope: Plan: Unwitnessed episode with right forehead injury and right upper extremity injury. Could be secondary to mechanical fall or syncope -Patient sustained an injury/small laceration and abrasion to the forehead, glued with Dermabond in the ER -EKG, troponins and echo are unremarkable - Consult neurology for confusion and possible amnesia in the setting of head injuries in the past - PT/OT consulted with hx of gait disturbance and other connective tissue diseases - Imaging of the head including CT is negative for any acute abnormalities or findings - R wrist xray showing : right ulnar styloid process fracture which appears to be chronic in nature - Continue pain control with acetaminophen -No more syncope, no arrhythmias and no significant imaging findings -PT and OT evaluation before discharge Global amnesia History of traumatic brain injury with amnesia and has been under care of [facility] neurologist Patient could not remember anything following the episode of fall which happened around 11:30 AM Condition seems to be much better this morning and can remember things before yesterday but nothing of yesterday Awaiting neurology input and recommendation Appreciate neurology input and recommendation Amnesia persist Significant psychiatric condition including Borderline personality disorder, PT SD, bipolar disorder and anxiety Has not been taking her psychiatric medications we do not know for how long She tried to get out of the hospital this morning by herself Psychiatrist has been consulted-appreciate input and recommendation She has been put under one-to-one observation She is off one-to-one observation Continue fluoxetine and avoid benzodiazepines, if needed use hydroxyzine UA suggestive of infection and culture came back positive We will start intravenous ceftriaxone Urine culture grew E. coli which is pansensitive-we will continue intravenous ceftriaxone for now (2) Raynaud disease: Plan: - Chronic, stable - May continue cevimeline - Hx of connective tissue disorder that neurology is following, causes gait disturbance, not fully diagnosed specifically due to lack of positives on testing and imaging studies. (3) GERD (gastroesophageal reflux disease): Plan: -Continue pantoprazole (4) Borderline personality disorder: (5) PTSD (post-traumatic stress disorder): (6) Bipolar disorder: (7) Anxiety: Plan: - Continue Prozac - required a dose of Ativan 1 mg IV in the ER due to having a panic attack - Possible that benzo is causing the slight slurring and falling asleep -Try to avoid any dangerous and try hydroxyzine if needed (8) Migraine: Plan: -Has follow-up with Dr. Salgado with neurology as an outpatient, may continue on Aimovig injection once monthly for migraine improvement, patient reports having good results from this thus far. -We will continue her outpatient migraine medication DVT ppx: - teds, scds, heparin subcu CODE: Full code Dispo: From home, likely to remain in the hospital x 1-2 days Admission and Anticipated Discharge Date Admission Date: December 04, 2021 Subjective 12/04/2021 The patient was seen and examined in telemetry unit; Remained very confused with significant global amnesia.Detailed history was taken from Saumya Heath, her friend with #[id number]. She has been helping Saumya in remodeling her house and was noted to be in normal condition yesterday. Kari went to help her this morning around 11 AM. She dropped a vacuum house cleaner supervisor in Saumya's house and went to get something more from her car. At that time Saumya was inside the house. In about 5 minutes Saumya heard a scream when she ran outside the house and found Kari soaked in blood on the ground. She took her inside and since that time she has been not remembering anything. Saumya called 911 and she was brought into the hospital for further evaluation. She has a significant history of bipolar disorder and as per Saumya she has not been taking her medications for some time. She has a therapist whom she was asking to see and contact. She has been asking for her mother, dogs and goats. As per Saumya everything has been taken care of. 12/05/2021 The patient was seen and examined in telemetry unit She tried to get out of the hospital by herself and was brought in by the cyber security analyst She has been feeling better and complains of pain in the right upper extremity and right forehead Mental status is almost normal but she cannot remember what happened yesterday Hemodynamically stable Has been put on one-to-one sitter 12/06/2021 The patient was seen and examined in telemetry unit She has been much better rational today Still she cannot remember anything that happened on Tuesday Denies any headache and/or any other symptoms Review of Systems Review of Systems: All systems reviewed and are unremarkable except as noted below Neurologic: AAOx3 Physical Exam Physical Exam: Lying in bed comfortably Constitutional: + ill appearing and average body habitus; no acute distress Eyes: PERRL, conjunctivae normal, anicteric sclerae ENMT: external ear and nose normal, oropharynx normal Respiratory: no respiratory distress Auscultation: lungs clear to auscultation bilaterally Cardiovascular: Rate/Rhythm: regular rate and regular rhythm; not tachycardic Heart Sounds: normal S1 and normal S2; no murmur Extremities: no edema Gastrointestinal (Abdomen): Inspection/Auscultation: normal bowel sounds; abdomen not distended Percussion/Palpation: abdomen soft; abdomen nontender Musculoskeletal: Minimal pain involving the right upper extremity and hand Neurologic: Alert, awake and oriented x3. No focal sensory or motor deficit appreciated Psychiatric: Insight: + limited insight Results & Data Results & Data ([facility]) Vital Signs (Past 12 Hours) Vital Signs Temp Pulse Resp BP Pulse Ox 12/06/21 11:00 36.6 C 75 22 126/76 96 12/06/21 09:02 36.6 C 68 18 106/63 97 12/06/21 03:59 36.7 C 70 18 115/62 96 Medications Administered Current Inpatient Medications Acetaminophen (Acetaminophen 325 Mg Tab) 650 mg PO Q4H PRN PRN Reason: Pain or Fever Stop: 01/04/22 04:40 Last Admin: 12/05/21 14:42 Dose: 650 mg Documented by: Diclofenac Sodium (Diclofenac Sod 1% Gel 100 Gm Tube) 2 gm EXT QID PRN PRN Reason: right wrist pain Stop: 01/03/22 17:56 Last Admin: 12/05/21 05:17 Dose: 2 gm Documented by: Fluoxetine HCl (Fluoxetine Hcl 20 Mg Cap) 20 mg PO DAILY [facility] Stop: 01/04/22 08:59 Last Admin: 12/06/21 07:50 Dose: 20 mg Documented by: Heparin Sodium (Porcine) (Heparin Sod 5,000 Unit/0.5 Ml Vial) 5,000 units SQ Q8 [facility] Stop: 01/03/22 21:59 Last Admin: 12/06/21 06:24 Dose: 5,000 units Documented by: Ceftriaxone Sodium 1,000 mg/ (Dextrose) 60 mls @ 100 mls/hr IV DAILY [facility]; Protocol Stop: 12/10/21 13:59 Last Infusion: 12/06/21 08:17 Dose: Infused Documented by: Miscellaneous (Cevimeline: Order Awaiting Action) 1 ea N/A QS [facility] Stop: 01/04/22 00:00 Last Admin: 12/06/21 09:40 Dose: Not Given Documented by: Nifedipine (Nifedipine Extended Rel 30 Mg Tabcr) 60 mg PO QAM [facility] Stop: 01/04/22 08:59 Last Admin: 12/06/21 07:51 Dose: 60 mg Documented by: Ondansetron HCl (Ondansetron Inj 2 Mg/Ml 2 Ml Vial) 4 mg IV Q4H PRN PRN Reason: Nausea And Vomiting Stop: 01/03/22 17:14 Pantoprazole Sodium (Pantoprazole 40 Mg Tab) 40 mg PO BID [facility] Stop: 01/03/22 20:59 Last Admin: 12/06/21 07:52 Dose: 40 mg Documented by: Pramipexole Dihydrochloride (Pramipexole Dihydrochlo 0.5 Mg Tab) 1.5 mg PO [facility] Stop: 01/04/22 08:59 Last Admin: 12/06/21 07:52 Dose: 1.5 mg Documented by: Sumatriptan Succinate (Sumatriptan Succinate 100 Mg Tab) 100 mg PO UD PRN PRN Reason: Migraine Headache Stop: 01/04/22 16:38 Last Admin: 12/05/21 21:55 Dose: 100 mg Documented by: Vitamin D (Cholecalciferol 1,000 Units 25 Mcg Tab) [facility] [place] Stop: 01/04/22 08:59 Last Admin: 12/06/21 07:49 Dose: 2,000 units Documented by:
[2021-12-06] MEDS: SUMAtriptan succinate 100 MG TAB PO PRN (19:48)
[2021-12-07] MEDS: HEPARIN SOD 5,000 UNIT/0.5 ML VIAL SQ SCH (06:34)
[2021-12-07 07:38] LABS: Basophils # (auto) 0.03 K/uL (0-0.2); Basophils % (auto) 0.6 %; Eosinophils # (auto) 0.24 K/uL (0-0.5); Eosinophils % (auto) 4.9 %; Hematocrit (blood only) 43.8 % (37-47); Hemoglobin 14.8 g/dL (12.0-16.0); Lymphocytes # (auto) 2.15 K/uL (1.2-3.4); Lymphocytes % (auto) 44.1 %; Mean Corpuscular Hemoglobin 31.3 pg (25-34); Mean Corpuscular Hgb Conc 33.8 g/dL (32-36); Mean Corpuscular Volume 92.6 fL (80-100); Mean Platelet Volume 9.9 fL (7.4-10.4); Monocytes # (auto) 0.38 K/uL (0.11-0.59); Monocytes % (auto) 7.8 %; Neutrophils # (auto) 2.07 K/uL (1.4-6.5); Neutrophils % (auto) 42.6 %; Platelet Count 255 K/uL (130-400); RDW Coefficient of Variation 12.7 % (11.5-14.5); RDW Standard Deviation 43.6 fL (36.4-46.3); Red Blood Count 4.73 M/uL (4.2-5.4); White Blood Count 4.87 K/uL (4.8-10.8)
[2021-12-07 07:56] LABS: BUN Creatinine Ratio 27.5 (10-20); Calcium 9.3 mg/dl (8.5-10.1); Est GFR (African American) 110.4 ml/min; Est GFR (Non-African American) 95.3 ml/min; Potassium 3.7 mmol/L (3.5-5.1)
[2021-12-07] MEDS: cefTRIAXone SODIUM 1,000 MG in DEXTROSE 5% 50 ML IV SCH (08:42)
[2021-12-07] MEDS: PANTOprazole 40 MG TAB PO SCH (08:43)
[2021-12-07] MEDS: PRAMIPEXOLE DIHYDROCHLO 0.5 MG TAB PO SCH (08:43)
[2021-12-07] MEDS: FLUoxetine HCL 20 MG CAP PO SCH (08:44)
[2021-12-07] MEDS: NIFEdipine EXTENDED REL 30 MG TABCR PO SCH (08:44)
[2021-12-07] MEDS: CHOLECALCIFEROL 1,000 UNITS 25 MCG TAB PO SCH (08:45)
--- NOTE | 2021-12-07 13:03 | Discharge Summary ---
Date of Service December 07, 2021 Admission HPI Per Admitting Provider This is a 61 yo F with PMHx of multiple psychiatric illnesses including bipolar disorder, anxiety, depression, panic attack, hx of self mutilation, borderline personality, PTSD and suicidal ideations in the past. 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 She presents from a friends house, possibly helping move some items? but she cannot articulate exactly what she was doing earlier this morning. EMS reported that she reappeared to a person or some people, she had blood running down the front of her forehead and face. She cannot recall anything about what happened and the event was unwitnessed. Upon arrival to the ER via EMS, she was distraught and having a panic attack per staff, where she was administered Ativan 1 mg IV, and now is much more calm, but seems to be slurring some words since being given this, drifts off in thought. She thinks it is 2003, and cannot enter the pin to unlock her phone to retrieve her mothers phone number. She expresses severe concern about her mother being home by herself tonamina. She is unable to provide me with her number and is not accessible within the chart. She was given a TDAP vaccination in the ER. Admission Exam Per Admitting Provider General: awake, alert, no apparent distress Head: Normocephalic, +traumatic ecchymotic lesion over the right forehead with 3-4 mm laceration which has been dermabonded. ENT: PERRL, EOMI, ocular conjunctiva is bloodshot appearing, no pharyngeal exudate, mucous membranes moist, dentition intact Chest: Clear to auscultation, on room air, no adventitious breath sounds Cardiac: Regular rate and rhythm, no murmur, no JVD, normal peripheral pulses, good capillary refill Abdominal: NABS x 4 quadrants, soft, nondistended, nontender to palpation, no rebound or guarding Extremities: Normal inspection, no peripheral edema or erythema, calfs nontender to palpation Psych: Normal mood and affect Neuro: AAO x 3, strength intact bilaterally and rated 5/5, no motor deficits, speech is clear, no peripheral sensory deficits Principal Diagnosis Syncope Global amnesia Urinary tract infection Raynaud disease: GERD (gastroesophageal reflux disease): Borderline personality disorder PTSD (post-traumatic stress disorder): Bipolar disorder: Anxiety: Migraine: Discharge Exam Physical Exam: Lying in bed comfortably Constitutional: + ill appearing and average body habitus ; no acute distress Eyes: PERRL, conjunctivae normal, anicteric sclerae ENMT: external ear and nose normal, oropharynx normal Respiratory: no respiratory distress Auscultation: lungs clear to auscultation bilaterally Cardiovascular: Rate/Rhythm: regular rate and regular rhythm; not tachycardic Heart Sounds: normal S1 and normal S2; no murmur Extremities: no edema Gastrointestinal (Abdomen): Inspection/Auscultation: normal bowel sounds; abdomen not distended Percussion/Palpation: abdomen soft; abdomen nontender Musculoskeletal: Minimal pain involving the right upper extremity and hand Neurologic: Alert, awake and oriented x3. No focal sensory or motor deficit appreciated Psychiatric: Insight: + limited insight Discharge Data Allergies Allergy/AdvReac Type Severity Reaction Status Date / Time aripiprazole Allergy Severe FACIAL Verified 12/04/21 16:39 SWELLING bee venom protein (honey bee) Allergy Severe pt. gets Verified 12/04/21 16:39 extreme swelling at the site and beyond,rash prednisone Allergy Severe RASH, Verified 12/04/21 16:39 MIGRAINE HEADACHE paliperidone [From Invega] Allergy Intermediate HIVES, Verified 12/04/21 16:39 SWELLING propranolol Allergy Intermediate hives Verified 12/04/21 16:39 doxycycline AdvReac Intermediate vomiting Verified 12/04/21 16:39 carbamazepine [From Tegretol] AdvReac Unknown Rash Verified 12/04/21 16:39 Consultations 12/04/21 15:30 ED Decision to Admit Stat 12/04/21 16:37 Consult Neurology Routine 12/05/21 10:49 Consult Psychiatry Routine Ordered Studies 12/04/21 12:38 CT cervical spine wo con Stat CT head/brain wo con Stat XR chest 1V portable CLINICAL HISTORY: trauma COMPARISON STUDY: Chest CT December 09, 2019. Chest radiograph October 06, 2019. FINDINGS: Lung volumes are normal. Lungs are clear. There is no pneumothorax or pleural effusion. Cardiac size is normal. Mediastinal contours are normal. There is no evidence for pulmonary edema. IMPRESSION: No acute cardiopulmonary findings. ACT 112: Negative or not required by law. Electronically signed by: Milton Joy M.D. 12/04/2021 1:18 PM Dictated:12/04/21 1312 Transcribed: 12/04/21 1313 XR wrist RT min 3V routine HISTORY: 61 years-old Female fall, right wrist injury acute right-sided wrist pain status post fall COMPARISON: Right forearm radiographs 12/09/2019 TECHNIQUE: Right forearm radiographs 12/09/2019 FINDINGS: Chronic displaced ulnar styloid fracture. Subcortical cystic changes of the scaphoid. Mild to moderate multifocal osteoarthritis. No acute fracture, dislocation or opaque foreign body. Ill-defined linear lucency of the distal radial cortex seen best on the PA internal rotation view. IMPRESSION: 1. Ill-defined longitudinal linear lucency of the distal radius is likely projectional. A subtle acute nondisplaced fracture is considered less likely. Correlate with point tenderness. 2. Chronic displaced ulnar styloid fracture. ACT 112: Negative or not required by law. The above report was generated using voice recognition software. It may contain grammatical, syntax or spelling errors. Electronically signed by: Chris Morse M.D. 12/04/2021 1:45 PM Dictated:12/04/21 1328 Transcribed: 12/04/[address] head/brain wo con CLINICAL HISTORY: 61 years-old Female with closed head injury, amnesia. Acute head injury with memory loss TECHNIQUE: Multiple axial CT images of the head were obtained without contrast. A dose lowering technique was utilized adhering to the principles of ALARA. CT DOSE: 1118.46 mGycm COMPARISON: Head CT 12/09/2019 FINDINGS: Study is mildly motion degraded. No acute intracranial hemorrhage, midline shift, intracranial mass, hydrocephalus, territorial ischemia or abnormal extra- axial collection. The calvarium is intact. Prior bilateral lens repair. The paranasal sinuses, mastoid air cells, and middle ear cavities are clear. IMPRESSION: No acute intracranial abnormality or calvarial fracture. ACT 112: Negative or not required by law. The above report was generated using voice recognition software. It may contain grammatical, syntax or spelling errors. Electronically signed by: Chris Morse M.D. 12/04/2021 1:28 PM Dictated:12/04/[address] DOSE: HISTORY: head injury, ams TECHNIQUE: Multiaxial CT images of the cervical spine were performed and reformatted in the sagittal and coronal plane without the use of contrast. A dose lowering technique was utilized adhering to the principles of ALARA. COMPARISON: Cervical spine CT 12/09/2019. FINDINGS: No fractures. No subluxation. Prevertebral soft tissues and the C1-C2 interval are intact. No pneumothorax. Straightening of the cervical spine. Mild degenerative disc disease at C5-C6 and C6-C7. IMPRESSION: No fractures within the cervical spine. ACT 112: Negative or not required by law. Electronically signed by: Lopez Hernandez M.D. 12/04/2021 2:11 PM Dictated:12/04/21 1358 Transcribed: 12/04/21 1358 Hospital Course (1) Syncope: Unwitnessed episode with right forehead injury and right upper extremity injury. Could be secondary to mechanical fall or syncope -Patient sustained an injury/small laceration and abrasion to the forehead, glued with Dermabond in the ER -EKG, troponins and echo are unremarkable - Consult neurology for confusion and possible amnesia in the setting of head injuries in the past - PT/OT consulted with hx of gait disturbance and other connective tissue diseases - Imaging of the head including CT is negative for any acute abnormalities or findings - R wrist xray showing : right ulnar styloid process fracture which appears to be chronic in nature - Continue pain control with acetaminophen -No more syncope, no arrhythmias and no significant imaging findings -PT and OT eval- Ok to discharge home - Advised pt not to drive until evaluate by her PCP in the next few days - Clinically stable Global amnesia History of traumatic brain injury with amnesia and has been under care of [facility] neurologist Patient could not remember anything following the episode of fall which happened around 11:30 AM Condition seems to be much better this morning and can remember things before yesterday but nothing of yesterday Awaiting neurology input and recommendation Appreciate neurology input and recommendation Stable Significant psychiatric condition including Borderline personality disorder, PT SD, bipolar disorder and anxiety Has not been taking her psychiatric medications we do not know for how long She tried to get out of the hospital this morning by herself Psychiatrist has been consulted-appreciate input and recommendation She has been put under one-to-one observation She is off one-to-one observation Continue fluoxetine and avoid benzodiazepines, if needed use hydroxyzine UTI Currently on t intravenous ceftriaxone Urine culture grew E. coli which is pansensitive IV rocephin changed to Keflex (2) Raynaud disease: - Chronic, stable - May continue cevimeline - Hx of connective tissue disorder that neurology is following, causes gait disturbance, not fully diagnosed specifically due to lack of positives on testing and imaging studies. (3) GERD (gastroesophageal reflux disease): -Continue pantoprazole (4) Borderline personality disorder: (5) PTSD (post-traumatic stress disorder): (6) Bipolar disorder: (7) Anxiety: - Continue Prozac - required a dose of Ativan 1 mg IV in the ER due to having a panic attack - Possible that benzo is causing the slight slurring and falling asleep -Try to avoid any Benzo and try hydroxyzine if needed - Will need outpatient follow up with Psych (8) Migraine: -Has follow-up with Dr. Salgado with neurology as an outpatient, may continue on Aimovig injection once monthly for migraine improvement, patient reports having good results from this thus far. -We will continue her outpatient migraine medication DVT ppx: - teds, scds, heparin subcu CODE: Full code Dispo:Discharge home today Total Time Total Time Spent Total Time Spent (In Minutes): 35 minutes Discharge Plan Discharge Items Patient Disposition: Home - Self-Care Reason For Visit: SYNCOPAL EPIDODE Discharge Diagnosis: Syncope Global amnesia Urinary tract infection Raynaud disease: GERD (gastroesophageal reflux disease): Borderline personality disorder PTSD (post-traumatic stress disorder): Bipolar disorder: Anxiety: Migraine: Activity: Resume your previous activity Non-emergency contact: Primary Care Provider Call non-emergency contact if: you have any medication questions Follow-up/Referrals: North Salgado MD [Physician] - (Date & Time 01/04/2022 10:00 AM Provider North Salgado MD Department Neurology [facility] ) Abner Burnett MD [Primary Care Provider] - (Date & Time 12/11/2021 11:20 AM Provider Abner Burnett MD Department [facility] ) Diet: Heart Healthy Addtl Attending Provider Instructions: Follow up with neurology Dr. Salgado on 01/04/2022 @ 10:00 AM at the Neurology [facility] Follow up with your primary care provider Dr. Burnett on 12/11/2021 @ 11:20 AM at the [facility] No driving for now until reevaluate by your primary care provider Fall precaution Seek medical attention if your symptoms reoccur You will need outpatient EEG ( Neurology will order it) Complete the course of your antibiotic ( Start tomorrow morning) Pending Studies at Discharge: No Stand-Alone Forms: My [facility], Smoking Cessation Medications and DC Order Prescriptions: New cephalexin 500 mg capsule 500 mg PO BID 3 Days Qty: 6 RF: 0 Continued biotin 5,000 mcg tablet,disintegrating 5,000 mcg PO QAM RF: 0 sumatriptan succinate [Imitrex] 100 mg Tablet 100 mg PO UD PRN (Reason: Headache) RF: 0 pantoprazole [Protonix] 40 mg Tablet,Delayed Release (Dr/Ec) 40 mg PO BID RF: 0 cevimeline 30 mg Capsule 30 mg PO TID RF: 0 epinephrine [EpiPen] 0.3 mg/0.3 mL Auto-Injector 0.3 mg IM UD PRN (Reason: Allergic Reaction) RF: 0 pramipexole [Mirapex] 1.5 mg Tablet 1.5 mg PO QAM RF: 0 cholecalciferol (vitamin D3) [Vitamin D3] 1,000 unit Capsule 2,000 unit PO QAM RF: 0 acetaminophen [Acetaminophen Extra Strength] 500 mg Tablet 1,000 mg PO Q8H PRN (Reason: Pain) RF: 0 nifedipine 60 mg tablet extended release 60 mg PO QAM RF: 0 diclofenac sodium 1 % gel 1 % TOPICAL UD RF: 0 fluoxetine 20 mg capsule 20 mg PO DAILY RF: 0 Aimovig Autoinjector 70 mg/mL auto-injector 70 mg SUBCUT UD RF: 0 Discharge Orders: Discharge Order (Routine); Ordered 12/07/21 Ordered By: Marybeth Mccarthy Admission Data Admit Date/Time: 12/04/21 16:01 Attending Provider: Marybeth Mccarthy Admit Provider: Mavis Hernandez Primary Care Provider: Abner Burnett Other Providers: Fabian Cade ; Mavis Hernandez ; Purnima Ortiz ; Jasmyne Villalobos ; Leslye Pascual Other Interventions: Discharge Summary Assessment (RN) Last Done: 12/07/21 14:03
--- NOTE | 2021-12-14 05:29 | Coding Query ---
CODING QUERY To promote full compliance with coding requirements relating to patient care, provider participation is requested in all cases of account support associate uncertainty. Please assist us with the question(s) below: Coding Question(s): Patient admiitted after a syncopal Unwitnessed event with amnesia. DS mentions Global amnesia. Neuro stated unclear if event triggered by UTI or mechanical falll resulting in mild traumatic brain injury. H/P mentioned likely head injury with concussion. Seeking to clarify the head injury. Please check below and thank you. Ryan Juarez [facility] Physician's Response(s): Patient had a concussion , unspecified LOC Patient had a mild traumatic brain injury, unspecified LOC ____x____ Patient had a head injury, unspecified LOC Other: Please document: Principal Diagnosis: "that condition established after study, to be chiefly responsible for occasioning the admission of the patient to the hospital for care." Co-Existing Principal Diagnosis: "when two or more diagnoses equally meet the criteria for principal diagnosis as determined by the circumstances of admission, diagnostic work up, and/or therapy provided, and the Alphabetic Index, Tabular List, or another coding guideline does not provide sequencing direction, any one of the diagnoses may be sequenced first." "When the physician has documented what appears to be a current diagnosis in the body of the record, but has not included the diagnosis in the final diagnostic statement, the physician should be asked whether the diagnosis should be added." (Source Coding Clinic 2 QTR90. p3-4) DORIS
== END 2021-12-07 14:45 | disposition home or self-care (01) | DRG 83 ==
LOC: ED 12:31 → 2S 16:01 → SUATTDRO 16:01 → 2S 17:10